=== PATIENT | female | born 1940 | race Caucasian/White ===

== ENCOUNTER → 2018-01-05 13:00 | Outpatient (CLI) | payer MEDICARE, OTHER, SELFPAY ==
--- NOTE | 2018-01-05 | DI.US.S_ITS ---
PROCEDURE: US PERIPH VENOUS LOW EXTREM LT INDICATIONS: LEFT LEG SWELLING TECHNIQUE: Real-time imaging, as well as color and pulse Doppler interrogation, were performed of the lower extremity deep veins from the inguinal ligament to the popliteal fossa. COMPARISON: [facility], PVE UNILATERAL RIGHT, 08/22/2014, 9:18. [facility], BREAST UNILATERAL LIMITED, 06/25/2014, 14:19. [facility], BREAST LEFT, 12/03/2010, 13:47. [facility], BREAST LEFT, 12/09/2008, 9:13. FINDINGS: The deep veins are normally compressible, and free of intraluminal thrombus. Color and pulse Doppler demonstrate normal phasic intraluminal flow. IMPRESSION: No sonographic evidence of deep venous thrombosis of the left lower extremity. Dictated by: Saurabh Mccoy M.D. on 01/05/2018 at 15:43 Approved by: Saurabh Mccoy M.D. on 01/05/2018 at 15:45
== END ==
PROVIDERS: PCP Family Medicine; Visit Provider Family Medicine
DX: M79.89 Other specified soft tissue disorders (principal)
CPT/HCPCS: 93971

== ENCOUNTER → 2018-05-04 12:34 | Outpatient (CLI) | payer MEDICARE, OTHER, SELFPAY ==
--- NOTE | 2018-05-04 | DI.US.S_ITS ---
PROCEDURE: US PELVIC COMPLETE INDICATIONS: FLANK PAIN PELVIS PAIN TECHNIQUE: Real-time scanning was performed of the pelvic organs, with image documentation. Additional endovaginal scanning was necessary due to incomplete visualization of the adnexal and endometrial structures by transabdominal scanning. COMPARISON: [facility], US, US RENAL COMPLETE, 05/04/2018, 12:54. [facility], , US PELVIS AND TRANSVAGINAL, 01/29/2005, 14:00. FINDINGS: Transabdominal scanning: No pathologic free abdominal or pelvic fluid. On the accompanying abdominal ultrasound, the kidneys demonstrate a normal appearance. Endovaginal scanning: Uterus: Removed. Ovaries: The right ovary measures 1.3 x 1 x 1 cm area is only seen transabdominally. The left ovary measures 1.4 x 1.2 x 1.1 cm or this is best seen transabdominally. IMPRESSION: Unremarkable ovaries. Status post hysterectomy. Dictated by: Sancho Sherman M.D. on 05/04/2018 at 13:38 Approved by: Sancho Sherman M.D. on 05/04/2018 at 13:39
--- NOTE | 2018-05-04 | DI.US.S_ITS ---
PROCEDURE: US RENAL COMPLETE INDICATIONS: FLANK PAIN PELVIS PAIN TECHNIQUE: Real-time scanning was performed of the kidneys and bladder, with image documentation. COMPARISON: [facility], CT, ABDOMEN/PELVIS WITH CONTRAST, 06/16/2017, 11:17. [facility], US, US PELVIC COMPLETE, 05/04/2018, 13:13. FINDINGS: Kidneys: Kidneys are normal in size. Right kidney measures 10.6 cm long; left kidney measures 10.1 cm long. Right renal cortical thickness is 1.4 cm; left renal cortical thickness is 1.1 cm. Renal cortical echotexture is normal. No hydronephrosis or nephrolithiasis. No suspicious solid mass lesions. Bladder: Pre-void bladder volume is 297 mL. Post-void residual is 104 mL. Pre-void images demonstrate no intraluminal masses or stones. On pre-void images, both ureteral jets are noted with color Doppler interrogation. (Of note, ureteral jets may not be detectable in up to 25% of cases due to insufficient differences in specific gravity between ureteral and bladder urine). Miscellaneous: No free pelvic fluid. IMPRESSION: Normal study, without hydronephrosis. Dictated by: Sancho Sherman M.D. on 05/04/2018 at 13:37 Approved by: Sancho Sherman M.D. on 05/04/2018 at 13:38
== END ==
PROVIDERS: PCP Family Medicine; Visit Provider Obstetrics & Gynecology
DX: R10.2 Pelvic and perineal pain (principal); Z90.710 Acquired absence of both cervix and uterus
CPT/HCPCS: 76770; 76830; 76856

== ENCOUNTER → 2018-08-23 11:19 | Outpatient (CLI) | payer MEDICARE, OTHER, SELFPAY ==
--- NOTE | 2018-08-23 | DI.MG.S_ITS ---
BILATERAL DIGITAL SCREENING MAMMOGRAM 3D/2D WITH CAD POST LUMPECTOMY: 08/23/2018 CLINICAL: Routine screening. Personal history of right breast cancer. Family history of breast cancer. Comparison is made to exams dated: 08/15/2017 mammogram, 08/02/2016 mammogram, and 01/05/2016 mammogram - [facility]. There are scattered fibroglandular elements in both breasts. Current study was also evaluated with a Computer Aided Detection (CAD) system. There are benign post operative findings in the right breast. There also are benign calcifications in both breasts. No significant masses, calcifications, or other findings are seen in either breast. There has been no significant interval change. IMPRESSION: There is no mammographic evidence of malignancy. A 1 year screening mammogram is recommended. This exam was interpreted at Station ID: [id number]. NOTE: For mammograms, a report in lay terms will be sent to the patient. Approximately 15% of breast malignancies will not be visualized mammographically. In the management of a palpable breast mass, a negative mammogram must not discourage biopsy of a clinically suspicious lesion. Electronically Signed By: Emery jaramillo/isabelle:08/23/2018 15:29:35 copy to: THALIA CORNELL letter sent: Normal Exam ACR BI-RADS Category 2: Benign Finding(s) 3342F
== END ==
PROVIDERS: PCP Family Medicine; Visit Provider Family Medicine
DX: Z12.31 Encounter for screening mammogram for malignant neoplasm of breast (principal); Z85.3 Personal history of malignant neoplasm of breast; Z80.3 Family history of malignant neoplasm of breast
CPT/HCPCS: 77063; 77067

== ENCOUNTER → 2019-11-02 14:06 | Outpatient (CLI) | payer MEDICARE, OTHER, SELFPAY ==
--- NOTE | 2019-11-02 | DI.MG.S_ITS ---
BILATERAL DIGITAL SCREENING MAMMOGRAM 3D/2D WITH CAD: 11/02/2019 Comparison is made to exams dated: 08/23/2018 mammogram, 08/15/2017 mammogram, and 08/02/2016 mammogram - [facility]. There are scattered fibroglandular elements in both breasts. Current study was also evaluated with a Computer Aided Detection (CAD) system. There is a benign area of fat necrosis in the right breast. There also are benign calcifications in both breasts. Additionally, there are benign post operative findings in the right breast. No significant masses, calcifications, or other findings are seen in either breast. There has been no significant interval change. IMPRESSION: There is no mammographic evidence of malignancy. A 1 year screening mammogram is recommended. This exam was interpreted at Station ID: [id number]. NOTE: For mammograms, a report in lay terms will be sent to the patient. Approximately 15% of breast malignancies will not be visualized mammographically. In the management of a palpable breast mass, a negative mammogram must not discourage biopsy of a clinically suspicious lesion. Electronically Signed By: Yousif jefferson/isabelle:11/02/2019 16:01:42 letter sent: Normal Exam ACR BI-RADS Category 2: Benign Finding(s) 3342F
== END ==
PROVIDERS: PCP Family Medicine; Referring Provider Family Medicine; Visit Provider Family Medicine
DX: Z12.31 Encounter for screening mammogram for malignant neoplasm of breast (principal)
CPT/HCPCS: 77063; 77067

== ENCOUNTER → 2019-12-05 13:07 | Outpatient (CLI) | payer MEDICARE, OTHER, SELFPAY | PROVIDERS: PCP Family Medicine; Referring Provider Family Medicine; Visit Provider Family Medicine | DX: M85.851 Other specified disorders of bone density and structure, right thigh (principal); Z78.0 Asymptomatic menopausal state; Z85.3 Personal history of malignant neoplasm of breast | CPT/HCPCS: 77080 ==

== ENCOUNTER → 2020-06-20 10:16 | Outpatient (CLI) | payer MEDICARE, OTHER, SELFPAY ==
[2020-06-20] MEDS: COVID-19 VACC #1, MRNA(MOD) 100 MCG/0.5 ML VIAL IM (10:22)
== END ==
PROVIDERS: PCP Family Medicine; Referring Provider Internal Medicine; Visit Provider Internal Medicine
DX: Z23 Encounter for immunization (principal)
CPT/HCPCS: 0011A; 91301

== ENCOUNTER → 2020-07-18 11:05 | Outpatient (CLI) | payer MEDICARE, OTHER, SELFPAY ==
[2020-07-18] MEDS: COVID-19 VACC #2, MRNA(MOD) 100 MCG/0.5 ML VIAL IM (11:09)
== END ==
PROVIDERS: PCP Family Medicine; Visit Provider Internal Medicine
DX: Z23 Encounter for immunization (principal)
CPT/HCPCS: 0012A; 91301

== ENCOUNTER 2020-07-24 10:48 | Emergency (ER) | payer MEDICARE, OTHER, SELFPAY ==
[2020-07-24] VITALS (21 sets, daily range): BP systolic 133–172; BP diastolic 63–90; PULSE 79–128; RESP 14–24; TEMP 36.7; O2SAT 95–99; BMI 28.3
--- NOTE | 2020-07-24 10:58 | ED.ARRPALP ---
HPI - Arrhythmia/Palpitations <MATTHIAS Gilbert - Last Filed: 07/24/20 15:20> General Chief Complaint: Arrhythmia/Palpitations Stated Complaint: rapid heart beat Time Seen by Provider: 07/24/20 10:48 Source: patient Mode of arrival: Ambulatory Limitations: no limitations History of Present Illness HPI narrative: 79yo female with a history of GERD and HLD, presents to the ED for concerns of a rapid heart rate. She states yesterday she felt like her heart was beating fast, this resolved prior to the time she went to bed. This morning she woke up and had the same feeling. Patient states she has a Fitbit and noticed that the heart rate has been over 100. She had an episode similar to this approximately 1 week ago which resolved on its own. Patient states she has shortness of breath with these episodes but denies other symptoms of these episodes such as diaphoresis, vomiting, chest pain, or dizziness. She denies any diagnosis of a cardiac arrhythmia, denies taking any medications for high blood pressure or cardiac arrhythmias. Patient states she takes omeprazole and simvastatin only. She denies any fevers, chills, nausea, vomiting, diarrhea, chest pain, shortness of breath, dizziness, cough, or any other concerns at this time. She states she does not feel her rapid heartbeat at this very moment, (HR on monitor of 126). Related Data Home Medications Medication Instructions Recorded Confirmed ASPIRIN (Aspirin) Q DAY #0 12/19/12 cyclosporine [Restasis] 1 drp OPHTH Q DAY #0 01/16/16 fluticasone propionate [Flonase 1 spray INTRANASAL QDAY #1 bot 01/16/16 Allergy Relief] Previous Rx's Medication Instructions Recorded metoprolol succinate 25 mg PO DAILY 30 Days #30 tab 07/24/20 Allergies Allergy/AdvReac Type Severity Reaction Status Date / Time No Known Drug Allergies Allergy Verified 07/24/20 10:54 Review of Systems <MATTHIAS Gilbert - Last Filed: 07/24/20 15:20> Review of Systems Narrative: REVIEW OF SYSTEMS: GENERAL: Denies fever or chills. HENT: No head trauma. CARDIOVASCULAR: No chest pain or syncope. RESPIRATORY: No shortness of breath or cough. Does report some shortness of breath with episodes. GASTROINTESTINAL: No nausea, vomiting, diarrhea, or constipation. MUSCULOSKELETAL: No pain. INTEGUMENTARY: No rash. NEURO: No numbness or tingling. Patient History <MATTHIAS Gilbert - Last Filed: 07/24/20 15:20> Medical History (Updated 07/24/20 @ 14:29 by MATTHIAS Gilbert) HLD (hyperlipidemia) Social History Smoking Status: Unknown if ever smoked Smoking Status: Unknown if ever smoked alcohol intake frequency: holidays/special occasions only Substance Use Type: does not use Exam <MATTHIAS Gilbert - Last Filed: 07/24/20 15:20> Initial Vital Signs Initial Vital Signs: Vital Signs Temperature 98.1 F 07/24/20 10:50 Pulse Rate 126 H 07/24/20 10:50 Respiratory Rate 19 07/24/20 10:50 Blood Pressure 166/82 H 07/24/20 10:50 Pulse Oximetry 98 07/24/20 10:50 PHYSICAL EXAMINATION: GENERAL: Awake and alert. HENT: Normocephalic, atraumatic. Ear canals patent. Oral mucosa is pink and moist. CARDIOVASCULAR: S1 and S2 sounds normal. Increased rate with regular rhythm, no murmurs, clicks, or bruits. No pedal edema. RESPIRATORY: Normal respiratory rate, trachea midline, airway patent. No stridor, nasal flaring or accessory muscle use. Lungs are clear in all frank without wheeze, rhonchi, or crackles. MUSCULOSKELETAL: Normal gait and coordination. Equal tone and mass bilaterally. EXTREMITIES: CMS intact. Moves all extremities. SKIN: Warm, dry, soft, appropriate color for ethnicity. No lesions, rashes, or wounds. NEURO: Alert and Oriented X 3. Good coordination. No ataxia, or sensory deficits, or cognitive issues. PSYCH: Appropriate affect and mood. <Clay Troy DO - Last Filed: 07/24/20 16:03> Initial Vital Signs Initial Vital Signs: Vital Signs Temperature 98.1 F 07/24/20 10:50 Pulse Rate 126 H 07/24/20 10:50 Respiratory Rate 19 07/24/20 10:50 Blood Pressure 166/82 H 07/24/20 10:50 Pulse Oximetry 98 07/24/20 10:50 Course <MATTHIAS Gilbert - Last Filed: 07/24/20 15:20> Course Course Narrative: 1335: I spoke with patient's PCP, Dr. Price discussed patient's symptoms, tests, and test results. He suggested starting patient on metoprolol XR 25mg once daily. Orders Ordered: ED Orders 07/24/20 10:55 EKG-12 Lead Stat 07/24/20 11:02 XR chest 1V Stat 07/24/20 11:03 EKG-12 Lead Routine 07/24/20 11:33 Complete Blood Count AUTO DIFF Stat Comprehensive Metabolic Panel Stat Lipase Stat Troponin & CK Cardiac Panel Stat 07/24/20 11:38 EKG-12 Lead Stat 07/24/20 13:34 Troponin I Stat Discontinued Medications Sodium Chloride (Normal Saline 0.9%) 1,000 mls @ 1,000 mls/hr IV BOLUS ONE Stop: 07/24/20 12:01 Last Infusion: 07/24/20 12:51 Dose: 0 mls/hr Documented by: Admin: 07/24/20 11:33 Dose: 1,000 mls/hr Documented by: MARILYN Metoprolol Tartrate (Metoprolol Tartrate 5 Mg/5 Ml Inj) 5 mg IV NOW ONE Stop: 07/24/20 11:03 Last Admin: 07/24/20 12:07 Dose: 5 mg Documented by: MARILYN Vital Signs Vital signs: Vital Signs - 8 hr 07/24/20 10:50 07/24/20 10:53 07/24/20 11:00 Temperature 98.1 F Pulse Rate 126 H 128 H 116 H Respiratory Rate 19 24 Blood Pressure 166/82 H Pulse Oximetry 98 99 98 07/24/20 11:05 07/24/20 11:20 07/24/20 11:30 Temperature Pulse Rate 118 H 102 H 100 H Respiratory Rate 16 17 19 Blood Pressure 169/73 H 156/70 H Pulse Oximetry 99 99 98 07/24/20 11:37 07/24/20 11:40 07/24/20 11:50 Temperature Pulse Rate 100 H 102 H 104 H Respiratory Rate 19 16 16 Blood Pressure 172/80 H 168/79 H 169/79 H Pulse Oximetry 99 97 96 07/24/20 12:00 07/24/20 12:10 07/24/20 12:12 Temperature Pulse Rate 96 H 97 H 82 Respiratory Rate 17 17 19 Blood Pressure 159/69 H 164/72 H 154/69 H Pulse Oximetry 99 98 99 07/24/20 12:20 07/24/20 12:30 07/24/20 12:47 Temperature Pulse Rate 79 84 83 Respiratory Rate 14 14 22 Blood Pressure 156/72 H 161/72 H Pulse Oximetry 97 98 98 07/24/20 12:50 07/24/20 13:00 07/24/20 13:10 Temperature Pulse Rate 83 80 81 Respiratory Rate 20 16 16 Blood Pressure 159/90 H 148/78 H 155/78 H Pulse Oximetry 97 98 96 07/24/20 13:20 07/24/20 13:30 07/24/20 14:44 Temperature Pulse Rate 82 86 87 Respiratory Rate 15 17 14 Blood Pressure 164/78 H 164/87 H 133/63 Pulse Oximetry 97 97 95 <Clay Troy DO - Last Filed: 07/24/20 16:03> Orders Ordered: ED Orders 07/24/20 10:55 EKG-12 Lead Stat 07/24/20 11:02 XR chest 1V Stat 07/24/20 11:03 EKG-12 Lead Routine 07/24/20 11:33 Complete Blood Count AUTO DIFF Stat Comprehensive Metabolic Panel Stat Lipase Stat Troponin & CK Cardiac Panel Stat 07/24/20 11:38 EKG-12 Lead Stat 07/24/20 13:34 Troponin I Stat Discontinued Medications Sodium Chloride (Normal Saline 0.9%) 1,000 mls @ 1,000 mls/hr IV BOLUS ONE Stop: 07/24/20 12:01 Last Infusion: 07/24/20 12:51 Dose: 0 mls/hr Documented by: Admin: 07/24/20 11:33 Dose: 1,000 mls/hr Documented by: MARILYN Metoprolol Tartrate (Metoprolol Tartrate 5 Mg/5 Ml Inj) 5 mg IV NOW ONE Stop: 07/24/20 11:03 Last Admin: 07/24/20 12:07 Dose: 5 mg Documented by: MARILYN Vital Signs Vital signs: Vital Signs - 8 hr 07/24/20 10:50 07/24/20 10:53 07/24/20 11:00 Temperature 98.1 F Pulse Rate 126 H 128 H 116 H Respiratory Rate 19 24 Blood Pressure 166/82 H Pulse Oximetry 98 99 98 07/24/20 11:05 07/24/20 11:20 07/24/20 11:30 Temperature Pulse Rate 118 H 102 H 100 H Respiratory Rate 16 17 19 Blood Pressure 169/73 H 156/70 H Pulse Oximetry 99 99 98 07/24/20 11:37 07/24/20 11:40 07/24/20 11:50 Temperature Pulse Rate 100 H 102 H 104 H Respiratory Rate 19 16 16 Blood Pressure 172/80 H 168/79 H 169/79 H Pulse Oximetry 99 97 96 07/24/20 12:00 07/24/20 12:10 07/24/20 12:12 Temperature Pulse Rate 96 H 97 H 82 Respiratory Rate 17 17 19 Blood Pressure 159/69 H 164/72 H 154/69 H Pulse Oximetry 99 98 99 07/24/20 12:20 07/24/20 12:30 07/24/20 12:47 Temperature Pulse Rate 79 84 83 Respiratory Rate 14 14 22 Blood Pressure 156/72 H 161/72 H Pulse Oximetry 97 98 98 07/24/20 12:50 07/24/20 13:00 07/24/20 13:10 Temperature Pulse Rate 83 80 81 Respiratory Rate 20 16 16 Blood Pressure 159/90 H 148/78 H 155/78 H Pulse Oximetry 97 98 96 07/24/20 13:20 07/24/20 13:30 07/24/20 14:44 Temperature Pulse Rate 82 86 87 Respiratory Rate 15 17 14 Blood Pressure 164/78 H 164/87 H 133/63 Pulse Oximetry 97 97 95 MDM - Arrhythmia/Palpitations <MATTHIAS Gilbert - Last Filed: 07/24/20 15:20> Medical Records Attestation: I reviewed the patient's medical records. Lab Data Attestation: I reviewed the patient's lab results. Result diagrams: 07/24/20 11:33 07/24/20 11:33 Labs: Lab Results 07/24/20 07/24/20 07/24/20 Range/Units 11:33 11:33 13:34 WBC 6.1 (4.5-11.0) X10^3/uL RBC 4.57 (4.0-5.2) X10^6/uL Hgb 13.8 (12.0-16.0) g/dL Hct 41.9 (36-46) % MCV 91.6 (80-100) fL MCH 30.3 (26-34) PG MCHC 33.0 (30-36) % RDW 13.1 (11.6-14.8) % Plt Count 233 (150-400) X10^3/uL Neut % (Auto) 73.1 (50-75) % Lymph % (Auto) 20.1 L (25-40) % [place] % (Auto) 5.9 (3-14) % Eos % (Auto) 0.3 L (2-4) % Baso % (Auto) 0.6 (0-2) % Neut # (Auto) 4500 (6566-6783) /uL Lymph # (Auto) 1200 (9672-0272) /uL [place] # (Auto) 400 (0-900) /uL Eos # (Auto) 0 (0-450) /uL Baso # (Auto) 0 (0-100) /uL Sodium 137 (137-145) mmol/L Potassium 3.9 (3.4-5.1) mmol/L Chloride 103 (98-107) mmol/L Carbon Dioxide 29 (22-32) mmol/L BUN 18 H (7-17) mg/dL Creatinine 0.58 (0.52-1.04) mg/dL Estimated GFR > 60.0 (>60) mL/min BUN/Creatinine Ratio 31.0 H (6-22) Glucose 178 H (80-110) mg/dL Calcium 8.9 (8.4-10.2) mg/dL Total Bilirubin 0.4 (0.2-1.3) mg/dL AST 61 H (14-36) IU/L ALT 74 H (<35) IU/L Alkaline Phosphatase 111 (38-126) U/L Total Creatine Kinase 32 (30-135) U/L CK-MB (CK-2) TNP CK-MB (CK-2) Rel Index TNP Troponin I < 0.012 < 0.012 (0.01-0.034) ng/mL Total Protein 7.4 (6.3-8.2) g/dL Albumin 4.0 (3.5-5.0) g/dL Globulin 3.4 (1.7-4.1) g/dL Albumin/Globulin Ratio 1.2 (1.0-2.8) Lipase 107 (23-300) U/L Imaging Data Chest x-ray: Radiologist's Impresson: [facility] [place] [id number] ReportSigned Patient: Deborah Sands DMR#: [id number]: [id number]:[id number]/Sex: 79 / FDate of Service: 07/24/20Loc: EDAccession Number: [id number] Procedure: XR chest 1V Ordering Provider: Leisa Robles PROCEDURE: XR CHEST 1V INDICATIONS: chest pain TECHNIQUE: One view of the chest was acquired. COMPARISON: [facility], , CHEST 2 VIEW, 07/30/2015, 11:27. FINDINGS: Surgical changes and devices: Right axillary clips are present. Lungs and pleura: Minimal increased pulmonary vascularity. No pleural effusions or pneumothorax. Mediastinum: Mediastinal contours appear normal. Heart size is mildly prominent. Bones and chest wall: No suspicious bony lesions. Overlying soft tissues appear unremarkable. IMPRESSION: Minimal increased vascularity. No consolidations. Dictated by: Uma Schmitz M.D. on 07/24/2020 at 10:46 Approved by: Uma Schmitz M.D. on 07/24/2020 at 10:47 ECG Data Interpretation: 1055: Sinus tachycardia, rate 118, AR interval 160, QTC 372. No ST elevation. Some nonspecific ST depression noted in V2 through V5, difficult to tell due to rate. No ectopy. No obvious T-wave inversion. EKG also viewed by Dr. Troy 1103: Attempted to repeat EKG when heart rate was 140. However, in sinus rhythm, rate 116, AR interval 177, QTC 374. No ST elevation. Diffuse ST depression noted in V2 through V5. EKG viewed by Dr. Troy per protocol. 1139: Sinus rhythm, rate 99, AR interval 169, QTC 391. No ST elevation. Diffuse ST depression has significantly decreased from prior EKG, I suspect that this is most likely attributed to due to fast rhythm at this point. No ectopy. EKG also viewed by Dr. Troy per protocol. 1342: Sinus rhythm with occasional PAC noted. Rate 82, AR interval 134, QTC 398. No ST elevation or ST depression. EKG also viewed by Dr. Troy per protocol. MDM Narrative Medical decision making narrative: 79-year-old female with a history of HLD and GERD, presents emergency department for bouts of feeling like she has had a ?rapid heart rate ?. Initially patient's heart rate was 126 with a run up to 146, serial EKGs appeared to be sinus tachycardia. After administration of fluids, patient's heart rate decreased to 102, EKG at this point also showed sinus rhythm. Given patient's symptoms, laboratory work was ordered. Less concern for acute ACS as diffuse ST depressions resolved once heart rate decreased, but this the diffuse depressions were most likely a results of increased heart rate. Patient was given 5 mg of IV metoprolol, heart rate further decreased to 7 days. Last EKG at 70bpm showed occasional PACs. Patient had serial negative troponins, laboratory work non-remarkable, however I spoke with patient that it did show and elevated blood sugar of 178, and very slightly elevated liver enzymes.. She was encouraged to follow up with PCP about this. Patient did not have chest pain at all prior to presenting to the emergency department and while in the ED. After heart rate has decreased, shortness of breath resolved. I spoke with patient's PCP, Dr. Price, who suggested patient start metoprolol 25 ER daily. Discussed with patient that she should change positions slowly while taking this medication as it can cause dizziness. She was encouraged to follow up with PCP PRETTY. Less concern for acute infection causing tachycardia given normal white blood cell count and lack of other infectious or chills. No abdominal pain, no lesions, no fever, no cough Less concern for PE given lack of hypoxia, patient did have slight shortness of breath that resolved with heart rate returning to normal. Patient's heart rate returned normal after fluids and metoprolol. Return precautions discussed in detail for any new or worsening symptoms., patient agreed to plan of care verbalized understanding. <Clay Troy, DO - Last Filed: 07/24/20 16:03> Lab Data Labs: Lab Results 07/24/20 07/24/20 07/24/20 Range/Units 11:33 11:33 13:34 WBC 6.1 (4.5-11.0) X10^3/uL RBC 4.57 (4.0-5.2) X10^6/uL Hgb 13.8 (12.0-16.0) g/dL Hct 41.9 (36-46) % MCV 91.6 (80-100) fL MCH 30.3 (26-34) PG MCHC 33.0 (30-36) % RDW 13.1 (11.6-14.8) % Plt Count 233 (150-400) X10^3/uL Neut % (Auto) 73.1 (50-75) % Lymph % (Auto) 20.1 L (25-40) % [place] % (Auto) 5.9 (3-14) % Eos % (Auto) 0.3 L (2-4) % Baso % (Auto) 0.6 (0-2) % Neut # (Auto) 4500 (0702-8556) /uL Lymph # (Auto) 1200 (5485-3396) /uL [place] # (Auto) 400 (0-900) /uL Eos # (Auto) 0 (0-450) /uL Baso # (Auto) 0 (0-100) /uL Sodium 137 (137-145) mmol/L Potassium 3.9 (3.4-5.1) mmol/L Chloride 103 (98-107) mmol/L Carbon Dioxide 29 (22-32) mmol/L BUN 18 H (7-17) mg/dL Creatinine 0.58 (0.52-1.04) mg/dL Estimated GFR > 60.0 (>60) mL/min BUN/Creatinine Ratio 31.0 H (6-22) Glucose 178 H (80-110) mg/dL Calcium 8.9 (8.4-10.2) mg/dL Total Bilirubin 0.4 (0.2-1.3) mg/dL AST 61 H (14-36) IU/L ALT 74 H (<35) IU/L Alkaline Phosphatase 111 (38-126) U/L Total Creatine Kinase 32 (30-135) U/L CK-MB (CK-2) TNP CK-MB (CK-2) Rel Index TNP Troponin I < 0.012 < 0.012 (0.01-0.034) ng/mL Total Protein 7.4 (6.3-8.2) g/dL Albumin 4.0 (3.5-5.0) g/dL Globulin 3.4 (1.7-4.1) g/dL Albumin/Globulin Ratio 1.2 (1.0-2.8) Lipase 107 (23-300) U/L Discharge Plan Departure Patient Disposition: Home Clinical Impression: Palpitations, Sinus tachycardia, PAC (premature atrial contraction) Activity Restrictions/Additional Instructions: Thank you for entrusting me with your care today. As discussed, your EKGs show that your heart rate was initially fast, your heart rate slowed with metoprolol and fluids. Your cardiac laboratory work, chest x-ray, and EKGs were non-remarkable other than a fast heart rate and an occasional extra be called a PAC. Your laboratory work did show a glucose of 178 which is slightly high, and slightly elevated liver enzymes. This could be incidental however, I do recommend mentioning this to your primary care provider when you follow-up. I spoke with Dr. Price, he recommended starting you on metoprolol daily. Your prescription was sent to [facility] [place]. Please call his office today or tomorrow to make a follow-up appointment as soon as possible. Return emergency department for any new or worsening symptoms especially shortness of breath, chest pain, worsening palpitation, or any other concerns. Prescriptions: New metoprolol succinate 25 mg tablet extended release 24 hr 25 mg PO DAILY 30 Days Qty: 30 RF: 0 No Action ASPIRIN (Aspirin) Q DAY Qty: 0 RF: 0 fluticasone propionate [Flonase Allergy Relief] 9.9 ML spray,suspension 1 spray Intranasal QDAY Qty: 1 RF: 0 cyclosporine [Restasis] 1 EACH dropperette 1 drp OPHTH Q DAY Qty: 0 RF: 0 Referrals: Mitch Price MD [Primary Care Provider] - <Clay Troy DO - Last Filed: 07/24/20 16:03> Cosign ED Attending Cosignature Attestation: Dr Troy Co-Sign Statement: I was available for consultation during this patient's emergency department visit. This chart is signed by myself for administrative purposes only. I did not have direct contact with this patient during this visit. They were seen independently by the APC.
--- NOTE | 2020-07-24 11:02 | DI.RAD.S_ITS ---
PROCEDURE: XR CHEST 1V INDICATIONS: chest pain TECHNIQUE: One view of the chest was acquired. COMPARISON: [facility], , CHEST 2 VIEW, 07/30/2015, 11:27. FINDINGS: Surgical changes and devices: Right axillary clips are present. Lungs and pleura: Minimal increased pulmonary vascularity. No pleural effusions or pneumothorax. Mediastinum: Mediastinal contours appear normal. Heart size is mildly prominent. Bones and chest wall: No suspicious bony lesions. Overlying soft tissues appear unremarkable. IMPRESSION: Minimal increased vascularity. No consolidations. Dictated by: Uma Schmitz M.D. on 07/24/2020 at 10:46 Approved by: Uma Schmitz M.D. on 07/24/2020 at 10:47
--- NOTE | 2020-07-24 11:23 | PC.NURSE ---
patient stated that she began having symptoms the day before the snow came or last Tuesday. She states that she frequently becomes tired and short of breathe on exertion. She denies feeling lightheaded, nauseated , or dizzy, chest pain/ pressure. She has no history of heart disease, afib, or PR. Her states that her fitbit often reads a resting HR of 70s.
[2020-07-24] MEDS: SODIUM CHLORIDE 0.9% 1,000 ML 1000 ML IV (11:33)
[2020-07-24 11:44] LABS: Add Manual Diff / Slide Review NO; Basophils Absolute Auto 0 /uL (0-100); Basophils Percent Auto 0.6 % (0-2); Eosinophils Absolute Auto 0 /uL (0-450); Eosinophils Percent Auto 0.3 % (2-4); Hematocrit 41.9 % (36-46); Hemoglobin 13.8 g/dL (12.0-16.0); Lymphocytes Absolute Auto 1200 /uL (1100-4500); Lymphocytes Percent Auto 20.1 % (25-40); Mean Corpuscular Hemoglobin 30.3 PG (26-34); Mean Corpuscular Volume 91.6 fL (80-100); Monocytes Absolute Auto 400 /uL (0-900); Monocytes Percent Auto 5.9 % (3-14); Neutrophils Absolute Auto 4500 /uL (1500-7000); Neutrophils Percent Auto 73.1 % (50-75); Platelet Count 233 X10^3/uL (150-400); Red Blood Cell Count 4.57 X10^6/uL (4.0-5.2); Red Cell Distribution Width 13.1 % (11.6-14.8); White Blood Cell Count 6.1 X10^3/uL (4.5-11.0)
[2020-07-24 11:53] LABS: Alanine Aminotransferase 74 IU/L (<35); Albumin Globulin Ratio 1.2 (1.0-2.8); Alkaline Phosphatase 111 U/L (38-126); Aspartate Aminotransferase 61 IU/L (14-36); Bilirubin Total 0.4 mg/dL (0.2-1.3); Blood Urea Nitrogen 18 mg/dL (7-17); Calcium 8.9 mg/dL (8.4-10.2); Carbon Dioxide 29 mmol/L (22-32); Chloride 103 mmol/L (98-107); Creatine Kinase 32 U/L (30-135); Estimated Glomerular Filt Rate > 60.0 mL/min (>60); Globulin 3.4 g/dL (1.7-4.1); Glucose 178 mg/dL (80-110); HEMOLYSIS 33 (0-50); Lipase 107 U/L (23-300); Potassium 3.9 mmol/L (3.4-5.1); Sodium 137 mmol/L (137-145); Total Protein 7.4 g/dL (6.3-8.2)
[2020-07-24 12:05] LABS: Troponin I < 0.012 ng/mL (0.01-0.034)
[2020-07-24] MEDS: METOPROLOL TARTRATE 5 MG/5 ML INJ IV (12:07)
[2020-07-24 14:08] LABS: Troponin I < 0.012 ng/mL (0.01-0.034)
== END 2020-07-24 14:46 | disposition home or self-care (01) ==
PROVIDERS: Emergency Provider Nurse Practitioner; PCP Family Medicine
DX: I49.1 Atrial premature depolarization (principal); R00.2 Palpitations; R00.0 Tachycardia, unspecified; R06.02 Shortness of breath; Z79.82 Long term (current) use of aspirin; R07.9 Chest pain, unspecified; E78.5 Hyperlipidemia, unspecified; K21.9 Gastro-esophageal reflux disease without esophagitis
CPT/HCPCS: 36415; 71045; 80053; 82550; 83690; 84484; 85025; 93005; 96361; 96374; 99283; 99284

== ENCOUNTER → 2020-08-01 11:09 | Outpatient (CLI) | payer MEDICARE, OTHER, SELFPAY ==
--- NOTE | 2020-08-01 | DI.RAD.S_ITS ---
PROCEDURE: XR HIP W PEL IF DONE RT 2V INDICATIONS: RIGHT HIP PAIN TECHNIQUE: AP pelvis with lateral view(s) of the right hip(s). COMPARISON: None. FINDINGS: Bones: No fractures or dislocations. Pelvic ring appears intact. No suspicious bony lesions. Soft tissues: The visualized bowel gas pattern is normal. No suspicious soft tissue calcifications. IMPRESSION: No moderately severe or severe degenerative change is found, or evidence of recent trauma. 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 A definite source of asymmetric right-sided pain is not identified. Dictated by: Kalyan Chew M.D. on 08/01/2020 at 12:54 Approved by: Kalyan Chew M.D. on 08/01/2020 at 12:55
== END ==
PROVIDERS: PCP Family Medicine; Referring Provider Family Medicine; Visit Provider Family Medicine
DX: M25.551 Pain in right hip (principal); M51.17 Intervertebral disc disorders with radiculopathy, lumbosacral region
CPT/HCPCS: 73502

== ENCOUNTER → 2020-09-01 11:49 | Outpatient (CLI) | payer MEDICARE, OTHER, SELFPAY ==
--- NOTE | 2020-09-01 11:52 | DI.RAD.S_ITS ---
PROCEDURE: XR KNEE LT 3V INDICATIONS: right knee pain TECHNIQUE: 3 views of the knee were acquired. COMPARISON: None. FINDINGS: Bones: No fractures or dislocations. Mild tricompartmental osteoarthritis is seen. No suspicious bony lesions. Soft tissues: No joint effusion. No suspicious soft tissue calcifications. IMPRESSION: Mild tricompartmental osteoarthritis. No acute left knee fracture or dislocation. No joint effusion. Dictated by: Ayden Shaw M.D. on 09/01/2020 at 13:35 Approved by: Ayden Shaw M.D. on 09/01/2020 at 13:35
== END ==
PROVIDERS: PCP Family Medicine; Referring Provider Family Medicine; Visit Provider Family Medicine
DX: M25.561 Pain in right knee (principal); M17.12 Unilateral primary osteoarthritis, left knee
CPT/HCPCS: 73562

== ENCOUNTER → 2020-10-28 09:06 | Outpatient (CLI) | payer MEDICARE, OTHER, SELFPAY ==
--- NOTE | 2020-10-28 09:09 | DI.ECHO.S_ITS ---
[facility]+ [facility] +---------+ : : [address] : [place] [address] : : : : [id number] : : : : Phone: [phone] Echocardiogram Report + + :Name: FAUSTO BUCIO Study Date: 10/28/2020 Height: 66 in : :[facility] ReadingLocation: Weight: 175 lb : : Gender: Female BSA: 1.9 m2 : :: 1940 Age: 79 yrs BP: 146/91 mmHg: :Reason For Study: DYSPNEA : :Ordering Physician: DIEGO SCHMIDT Performed By: Jazzmine Henderson : :Referring: JUAN ACUÑA : + + Interpretation Summary Normal sinus rhythm. Normal LV size, wall thickness, wall motion and LV systolic function. EF is 60-65%. Normal chamber sizes. Mild MAC; otherwise there are no valvular abnormalities. No prior study available for comparison. Procedure: A two-dimensional transthoracic echocardiogram with color flow and Doppler was performed. The study quality was technically adequate. Comparison is made with the echocardiogram of 10/15/2013. The patient was in sinus rhythm with heart rates between 72-91 bpm during the exam. Left Ventricle: The left ventricle is normal in size. There is normal left ventricular wall thickness. The ejection fraction is estimated to be 60-65%. Diastolic parameters suggest probable normal left ventricular diastolic function and normal filling pressures. Right Ventricle: The right ventricle is normal in size and function. Atria: The left atrial size is normal. Right atrial size is normal. There is no Doppler evidence for an interatrial shunt. Mitral Valve: There is mild mitral annular calcification. The mitral valve leaflets appear mildly thickened, but open well. There is trace mitral regurgitation. Aortic Valve: The aortic valve is trileaflet. The aortic valve opens well. There is no aortic valve stenosis. No aortic regurgitation is present. Tricuspid Valve: The tricuspid valve is normal in structure and function. There is trace tricuspid regurgitation. Pulmonary artery pressures cannot be estimated because of the lack of a measurable TR jet velocity but the IVC suggests a CVP of around 3 mmHg. Pulmonic Valve: The pulmonic valve is not well visualized. There is no pulmonic valvular regurgitation. Great Vessels: The aortic root is normal size. The dimensions of the ascending aorta are normal. The IVC is of normal diameter and collapses greater than 50% with a sniff. This suggests a low right atrial pressure of 3 mm Hg. Pericardium/ Pleura There is no pericardial effusion. There is no pleural effusion. MMode/2D Measurements & Calculations LVIDd: 3.9 cm LVOT diam: 2.0 cm LVIDs: 2.5 cm Ao root diam: 3.3 cm FS: 34.7 % asc Aorta Diam: 3.3 cm EPSS: 0.30 cm Ao Arch Diam (Prox Trans): 2.7 cm IVSd: 0.66 cm LVPWd: 0.66 cm LV lu. diameter/BSA (cm/m^2): 2.0 LV sys. diameter/BSA (cm/m^2): 1.3 LA A2 area: 21.2 cm2 RA long axis: 5.6 cm LA A4 area: 17.2 cm2 RA area: 15.0 cm2 LA length (vol): 5.0 cm RA vol: 34.0 ml LA vol: 61.6 ml RA : 18.0 ml/m2 LA vol index: 32.6 ml/m2 IVC diam: 1.5 cm RVD1 (basal): 2.2 cm TAPSE: 2.2 cm Doppler Measurements & Calculations Ao V2 max: 137.4 cm/sec LVOT Max Antolin: 104.2 cm/sec Ao V2 mean: 89.6 cm/sec LV V1 max P.3 mmHg Ao max P.6 mmHg LV V1 VTI: 23.2 cm Ao mean P.8 mmHg RONALD(I,D): 2.6 cm2 Ao V2 VTI: 29.0 cm RONALD(V,D): 2.5 cm2 sev ratio: 0.80 RONALD indexed to BSA (cm^2/m^2): 1.4 MV E max antolin: 101.1 cm/sec PA pr(Accel): 29.3 mmHg MV A max antolin: 84.5 cm/sec MV E/A: 1.2 Med Peak E' Antolin: 8.6 cm/sec E/E' med: 11.8 Lat Peak E' Antolin: 11.4 cm/sec E/E' lat: 8.9 E/e' average: 10.3 MV dec time: 0.23 sec SV([facility]): 75.1 ml Electronically signed by: Ludmila Do M.D. on Reading Physician:10/29/2020 12:36 AM
== END ==
PROVIDERS: PCP Family Medicine; Referring Provider Internal Medicine Pulmonary Disease; Visit Provider Internal Medicine Pulmonary Disease
DX: R06.00 Dyspnea, unspecified (principal)
CPT/HCPCS: 93306

== ENCOUNTER → 2020-11-03 16:14 | Outpatient (CLI) | payer MEDICARE, OTHER, SELFPAY ==
--- NOTE | 2020-11-03 | DI.MG.S_ITS ---
BILATERAL DIGITAL SCREENING MAMMOGRAM 3D/2D WITH CAD: 11/03/2020 CLINICAL: Routine screening. Family history of breast cancer. Breast Cancer. Comparison is made to exams dated: 11/02/2019 mammogram, 08/23/2018 mammogram, and 08/15/2017 mammogram - [facility]. There are scattered fibroglandular elements in both breasts. Current study was also evaluated with a Computer Aided Detection (CAD) system. There is a benign area of fat necrosis in the right breast. There also are calcifications in both breasts. There has been no significant interval change. Additionally, there are benign post operative findings in the right breast. No significant masses, calcifications, or other findings are seen in either breast. IMPRESSION: BENIGN There is no mammographic evidence of malignancy. A 1 year screening mammogram is recommended. This exam was interpreted at Station ID: [id number]. NOTE: For mammograms, a report in lay terms will be sent to the patient. Approximately 15% of breast malignancies will not be visualized mammographically. In the management of a palpable breast mass, a negative mammogram must not discourage biopsy of a clinically suspicious lesion. Electronically Signed By: Emery Chairez M.D. aty/:11/03/2020 16:56:36 letter sent: Normal Exam ACR BI-RADS Category 2: Benign Finding(s) 3342F
== END ==
PROVIDERS: PCP Family Medicine; Referring Provider Family Medicine; Visit Provider Family Medicine
DX: Z12.31 Encounter for screening mammogram for malignant neoplasm of breast (principal)
CPT/HCPCS: 77063; 77067

== ENCOUNTER → 2020-11-08 10:03 | Outpatient (CLI) | payer MEDICARE, OTHER, SELFPAY ==
[2020-11-08 11:30] LABS: COVID19 -Nasal RAPID Negative (Negative)
== END ==
PROVIDERS: PCP Family Medicine; Visit Provider Physician Assistant
DX: Z01.812 Encounter for preprocedural laboratory examination (principal); Z20.822 Contact with and (suspected) exposure to COVID-19
CPT/HCPCS: 87635; C9803

== ENCOUNTER → 2020-11-11 10:09 | Outpatient (CLI) | payer MEDICARE, OTHER, SELFPAY ==
--- NOTE | 2020-11-11 | DI.NM.S_ITS ---
PROCEDURE: NM DEREK PERF SPECT REST & STR Rest and exercise myocardial perfusion SPECT with gated imaging and ejection fraction RADIOPHARMACEUTICAL: 11.3 mCi Tc-99m sestamibi IV at rest and 25.7 mCi Tc-99m sestamibi IV at peak exercise. A one day-protocol was performed. INDICATIONS: Dyspnea, unspecified TECHNIQUE: Radiopharmaceutical was injected at peak stress test, and also at rest. SPECT images were obtained. SPECT myocardial perfusion images were displayed in short axis, horizontal long axis, and vertical long axis views. Gated images were reviewed using [employer] software. COMPARISON: None. CARDIAC STRESS: A standard Paul treadmill exercise tolerance test was performed by the patient under the supervision of an attending staff. The patient exercised for 4 minutes and 1 seconds; functional aerobic impairment (CRISTINA) is +18%. Hemodynamic data: There is normal blood pressure and heart rate response to exercise stress. Patient achieved 129% of maximum predicted heart rate at peak exercise. Symptoms: Patient denied chest pain during exercise. EKG: No diagnostic EKG changes of ischemia. Occasional PACs and occasional PVCs present during stress and recovery. FINDINGS: Raw data: There is good myocardial labeling by radiotracer. No significant motion artifacts. Zwqh-fs-vfrvp ratio is 0.32 (normal is less than 0.38 for sestamibi tracer, and less than 0.50 for thallium tracer). Left ventricle function: Gated images demonstrate normal left ventricle wall thickening. No segmental wall motion abnormality. No transient ischemic dilation; TID is 0.85 (normal less than 1.3). The left ventricle resting end-diastolic volume is 72 mL. Left ventricle stress ejection fraction is 76%; normal values are above 45%. Myocardial perfusion: There is normal distribution of activity in the left and right ventricular myocardium. No fixed or reversible perfusion defects. IMPRESSION: Low risk, normal treadmill nuclear stress test. 1) No perfusion evidence of ischemia or infarction. 2) Normal left ventricular size, wall motion, and systolic function (EF post stress 76%). 3) No ECG evidence of ischemia. Exaggerated heart rate response, probably due to holding of metoprolol). 4) Occasional PACs and occasional PVCs present. 5) Reduced exercise tolerance (7.0 METs CRISTINA +18%). Target heart rate achieved. Appropritae BP response to exercise. 6) Compared to the nuclear stress test done , no significant change. Dictated by: Tariq Gonzalez MD on 11/11/2020 at 16:26 Approved by: Tariq Gonzalez MD on 11/11/2020 at 16:33
== END ==
PROVIDERS: PCP Family Medicine; Referring Provider Internal Medicine Pulmonary Disease; Visit Provider Internal Medicine Pulmonary Disease
DX: R06.00 Dyspnea, unspecified (principal)
CPT/HCPCS: 78452; 93017; A9502

== ENCOUNTER → 2020-12-17 14:37 | Outpatient (CLI) | payer MEDICARE, OTHER, SELFPAY ==
--- NOTE | 2020-12-17 14:40 | DI.CT.S_ITS ---
PROCEDURE: CT SINUS SCREEN WO CON INDICATIONS: Allergic rhinitis, unspecified TECHNIQUE: Noncontrast 3.0 mm axial images acquired from the frontal sinuses to the mid-sella, with coronal and sagittal reformats. For radiation dose reduction, the following was used: automated exposure control, adjustment of mA and/or kV according to patient size. COMPARISON: None. FINDINGS: Image quality: Excellent. Maxillary Sinuses: No bony remodeling or destruction. [id number] mucosal thickening is seen within the inferior maxillary sinuses. Ethmoid Air Cells: No bony remodeling or destruction. Sinuses are clear. Sphenoid Sinuses: No bony remodeling or destruction. Sinuses are clear. Frontal Sinuses: No bony remodeling or destruction. Minimal to mild mucosal thickening is seen within the inferomedial frontal sinuses. Ostiomeatal Complexes: Ostiomeatal complexes are patent, yet they are constitutionally narrowed. No Evelina cells. Miscellaneous: Visualized intra-orbital contents are normal. There are bilateral arminda bullosa. There is minimal rightward nasal septal deviation. IMPRESSION: Paranasal sinus disease is seen, which is most prominent within the maxillary sinuses. 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 Dictated by: Sancho Sherman M.D. on 12/17/2020 at 14:28 Approved by: Sancho Sherman M.D. on 12/17/2020 at 14:30
== END ==
PROVIDERS: PCP Family Medicine; Referring Provider Family Medicine; Visit Provider Family Medicine
DX: J30.9 Allergic rhinitis, unspecified (principal); J32.8 Other chronic sinusitis; R09.81 Nasal congestion; J34.3 Hypertrophy of nasal turbinates
CPT/HCPCS: 70486

== ENCOUNTER → 2021-11-13 14:17 | Outpatient (CLI) | payer MEDICARE, OTHER, SELFPAY ==
--- NOTE | 2021-11-13 | DI.MG.S_ITS ---
BILATERAL DIGITAL SCREENING MAMMOGRAM 3D/2D WITH CAD: 11/13/2021 CLINICAL: Routine screening. Personal history of right breast cancer. Family history of breast cancer. Comparison is made to exams dated: 11/03/2020 mammogram, 11/02/2019 mammogram, and 08/23/2018 mammogram - [facility]. There are scattered fibroglandular elements in both breasts. Current study was also evaluated with a Computer Aided Detection (CAD) system. There is a benign area of fat necrosis in the right breast. There also are benign calcifications in both breasts. Additionally, there are benign post operative findings in the right breast. No significant masses, calcifications, or other findings are seen in either breast. There has been no significant interval change. IMPRESSION: BENIGN There is no mammographic evidence of malignancy. A 1 year screening mammogram is recommended. This exam was interpreted at Station ID: [id number]. NOTE: For mammograms, a report in lay terms will be sent to the patient. Approximately 15% of breast malignancies will not be visualized mammographically. In the management of a palpable breast mass, a negative mammogram must not discourage biopsy of a clinically suspicious lesion. Electronically Signed By: Constantin Duran M.D., jr/isabelle:11/13/2021 16:23:13 letter sent: Normal Exam ACR BI-RADS Category 2: Benign Finding(s) 3342F
== END ==
PROVIDERS: PCP Family Medicine; Referring Provider Family Medicine; Visit Provider Family Medicine
DX: Z12.31 Encounter for screening mammogram for malignant neoplasm of breast (principal); Z85.3 Personal history of malignant neoplasm of breast; Z80.3 Family history of malignant neoplasm of breast
CPT/HCPCS: 77063; 77067

== ENCOUNTER 2021-12-22 14:15 | Emergency (ER) | payer MEDICARE, OTHER, SELFPAY ==
[2021-12-22] VITALS (13 sets, daily range): BP systolic 154–193; BP diastolic 69–95; PULSE 83–122; RESP 11–28; TEMP 36.4; O2SAT 94–97; BMI 28.3
--- NOTE | 2021-12-22 14:22 | DI.RAD.S_ITS ---
PROCEDURE: XR CHEST 1V INDICATIONS: chest pain TECHNIQUE: One view of the chest was acquired. COMPARISON: [facility], [place], XR CHEST 1V, 07/24/2020, 11:21. [facility], , CHEST 2 VIEW, 07/30/2015, 11:27. FINDINGS: Surgical changes and devices: Right axillary clips. Right breast clips. Lungs and pleura: Lungs appear clear. No pleural effusions or pneumothorax. Mediastinum: Mediastinal contours appear unchanged. Heart size is normal. Bones and chest wall: No suspicious bony lesions. Overlying soft tissues appear unremarkable. IMPRESSION: No acute cardiopulmonary abnormality. Dictated by: Osman Pedersen M.D. on 12/22/2021 at 16:05 Approved by: Osman Pedersen M.D. on 12/22/2021 at 16:06
[2021-12-22 14:48] LABS: Add Manual Diff / Slide Review NO; Basophils Absolute Auto 100 /uL (0-100); Basophils Percent Auto 0.9 % (0-2); Eosinophils Absolute Auto 0 /uL (0-450); Eosinophils Percent Auto 0.3 % (2-4); Hematocrit 40.7 % (36-46); Hemoglobin 13.7 g/dL (12.0-16.0); Lymphocytes Absolute Auto 1600 /uL (1100-4500); Lymphocytes Percent Auto 27.4 % (25-40); Mean Corpuscular HGB Conc 33.8 % (30-36); Mean Corpuscular Hemoglobin 30.3 PG (26-34); Mean Corpuscular Volume 89.6 fL (80-100); Monocytes Absolute Auto 400 /uL (0-900); Monocytes Percent Auto 6.6 % (3-14); Neutrophils Absolute Auto 3800 /uL (1500-7000); Neutrophils Percent Auto 64.8 % (50-75); Platelet Count 243 X10^3/uL (150-400); Red Blood Cell Count 4.53 X10^6/uL (4.0-5.2); Red Cell Distribution Width 13.7 % (11.6-14.8); White Blood Cell Count 5.9 X10^3/uL (4.5-11.0)
[2021-12-22 14:53] LABS: INR 1.1 (0.9-1.3); Prothrombin Time 11.7 SECONDS (10.1-12.7)
[2021-12-22 14:55] LABS: PTT Partial Thromboplastin Tim 31 SECONDS (26.4-36.2)
[2021-12-22 14:58] LABS: Alanine Aminotransferase 21 IU/L (<35); Albumin 4.2 g/dL (3.5-5.0); Albumin Globulin Ratio 1.3 (1.0-2.8); Alkaline Phosphatase 91 U/L (38-126); Aspartate Aminotransferase 33 IU/L (14-36); BUN Creatinine Ratio 24.7 (6-22); Bilirubin Total 0.6 mg/dL (0.2-1.3); Blood Urea Nitrogen 20 mg/dL (7-17); Calcium 8.8 mg/dL (8.4-10.2); Carbon Dioxide 24 mmol/L (22-32); Chloride 105 mmol/L (98-107); Creatine Kinase 39 U/L (30-135); Estimated Glomerular Filt Rate > 60 mL/min (>60); Globulin 3.2 g/dL (1.7-4.1); Glucose 185 mg/dL (80-110); HEMOLYSIS < 15 (0-50); Lipase 82 U/L (23-300); Magnesium 1.9 mg/dL (1.6-2.3); Potassium 4.2 mmol/L (3.4-5.1); Sodium 138 mmol/L (137-145); Total Protein 7.4 g/dL (6.3-8.2)
[2021-12-22 15:08] LABS: Troponin I < 0.012 ng/mL (0.01-0.034)
--- NOTE | 2021-12-22 16:31 | PC.NURSE ---
Addendum entered by Lexi Roper R.N. 12/22/21 16:50: Pt reports sweating during episodes of chest tightness. Chest tightness is just below both breasts. Pt reports taking 12.5 mg of metoprolol nightly. Original Note: Pt reports intermittent chest pain that began on Tuesday (12/20/21) with SOB upon walking/exertion. Pt reports feeling very tired for the past couple weeks. Reports diarrhea. Pt denies chest pain currently. Denies dizziness, N&V, or any change in medications. Encouraged to call if any changes in symptoms. Call light within reach.
[2021-12-22 16:35] LABS: D Dimer 201 ng/mL (<230)
[2021-12-22 17:06] LABS: Thyroid Stimulating Hormone 0.982 uIU/mL (0.47-4.68)
--- NOTE | 2021-12-22 19:00 | ED.ARRPALP ---
HPI - Arrhythmia/Palpitations General Chief Complaint: Arrhythmia/Palpitations Stated Complaint: Chest pain/fast heart beat Time Seen by Provider: 12/22/21 17:51 Source: patient Mode of arrival: Ambulatory History of Present Illness HPI narrative: 81-year-old female nonsmoker with history of hypertension and prior episodes of tachycardia presents with her and a chief complaint an episode of a fast heart rate and some chest pressure yesterday and then another 1 today. She is not currently having any symptoms. She denies any dizziness, weakness or lightheadedness. She denies nausea, vomiting or diarrhea. She denies any fever or chills. She denies recent travel, history of blood clot, trauma or injury. She denies any change in medications or diet. She denies exertional symptoms. She does state that over the past few years she feels more tired with exertion than she historically has. About 1 year ago she had a stress test and an echocardiogram that are reported to have been unremarkable Related Data Home Medications Medication Instructions Recorded Confirmed ASPIRIN (Aspirin) Q DAY ##0 12/19/12 cyclosporine 0.05 % eye drops in a 1 drp OPHTH Q DAY ##0 01/16/16 dropperette (Restasis) fluticasone propionate 50 1 spray intranasal QDAY ##1 01/16/16 mcg/actuation nasal spray,suspension (Flonase Allergy Relief) metoprolol succinate 25 mg 12.5 mg PO DAILY 12/22/21 12/22/21 tablet,extended release 24 hr Allergies Allergy/AdvReac Type Severity Reaction Status Date / Time No Known Drug Allergies Allergy Verified 12/22/21 14:20 Review of Systems Review of Systems Narrative: GENERAL: Denies chills, fatigue, malaise, fever, sweats. HEENT: Denies sinus pain, ear pain, sore throat, difficulty swallowing, dizziness. RESPIRATORY: Denies dyspnea, cough, wheezing, hemoptysis, sputum. CARDIOVASCULAR: See HPI GASTROINTESTINAL: Denies nausea, vomiting, abdominal pain, diarrhea, constipation, melena. : Denies dysuria, frequency, incontinence, hematuria, urinary retention. MUSCULOSKELETAL: denies weakness, joint pain, or bony pain SKIN: Denies rash, skin lesions, or other NEUROLOGIC: Denies weakness, headache, numbness, change in speech, confusion, seizures, incoordination. PSYCHIATRIC: No concerning psychosocial issues. 12 point review of systems is negative except for those stated above Patient History Medical History HLD (hyperlipidemia) Social History Smoking Status: Unknown if ever smoked Smoking Status: Unknown if ever smoked alcohol intake frequency: holidays/special occasions only Substance Use Type: does not use Exam Narrative Exam Narrative: GENERAL: [81] year old patient appears stated age. Well-developed patient, in mild distress. HEAD: Atraumatic. Normocephalic. EYES: Pupils equal round and reactive. Extraocular motions intact. No scleral icterus. No injection or drainage. ENT: Nose without bleeding, purulent drainage. Throat without erythema, tonsillar hypertrophy or exudate. Airway patent. NECK: Trachea midline. Non tender CARDIOVASCULAR: Regular rate and rhythm without murmurs, gallops, or rubs. RESPIRATORY: Clear to auscultation. Breath sounds equal bilaterally. No wheezes, rales, or rhonchi. GASTROINTESTINAL: Abdomen soft, non-tender, nondistended. EXTREMITIES: No edema or joint tenderness. BACK: Nontender without deformity or crepitance. No flank tenderness. NEURO: AOx3. SKIN: No rash or erythema of visible areas Initial Vital Signs Initial Vital Signs: Vital Signs Temperature 97.6 F 12/22/21 14:20 Pulse Rate 122 H 12/22/21 14:20 Respiratory Rate 15 12/22/21 14:20 Blood Pressure 187/85 H 12/22/21 14:20 Pulse Oximetry 95 12/22/21 14:20 Oxygen Delivery Method 12/22/21 14:20 Course Orders Ordered: ED Orders 12/22/21 19:10 Troponin & CK Cardiac Panel Stat 12/22/21 19:28 EKG-12 Lead Routine Vital Signs Vital signs: Vital Signs - 8 hr 12/22/21 20:00 12/22/21 20:01 12/22/21 20:01 Pulse Rate 88 87 Respiratory Rate 18 22 Blood Pressure 166/79 H Pulse Oximetry 94 95 MDM - Arrhythmia/Palpitations Lab Data Result diagrams: 12/22/21 14:30 12/22/21 14:30 Labs: Lab Results 07/26/22 07/26/22 07/26/22 Range/Units 14:30 14:30 14:30 WBC 5.9 (4.5-11.0) X10^3/uL RBC 4.53 (4.0-5.2) X10^6/uL Hgb 13.7 (12.0-16.0) g/dL Hct 40.7 (36-46) % MCV 89.6 (80-100) fL MCH 30.3 (26-34) PG MCHC 33.8 (30-36) % RDW 13.7 (11.6-14.8) % Plt Count 243 (150-400) X10^3/uL Neut % (Auto) 64.8 (50-75) % Lymph % (Auto) 27.4 (25-40) % [place] % (Auto) 6.6 (3-14) % Eos % (Auto) 0.3 L (2-4) % Baso % (Auto) 0.9 (0-2) % Neut # (Auto) 3800 (6410-3788) /uL Lymph # (Auto) 1600 (2130-0366) /uL [place] # (Auto) 400 (0-900) /uL Eos # (Auto) 0 (0-450) /uL Baso # (Auto) 100 (0-100) /uL PT 11.7 (10.1-12.7) SECONDS INR 1.1 (0.9-1.3) APTT 31 (26.4-36.2) SECONDS D-Dimer (<230) ng/mL Sodium 138 (137-145) mmol/L Potassium 4.2 (3.4-5.1) mmol/L Chloride 105 (98-107) mmol/L Carbon Dioxide 24 (22-32) mmol/L BUN 20 H (7-17) mg/dL Creatinine 0.81 (0.52-1.04) mg/dL Estimated GFR > 60 (>60) mL/min BUN/Creatinine Ratio 24.7 H (6-22) Glucose 185 H (80-110) mg/dL Calcium 8.8 (8.4-10.2) mg/dL Magnesium 1.9 (1.6-2.3) mg/dL Total Bilirubin 0.6 (0.2-1.3) mg/dL AST 33 (14-36) IU/L ALT 21 (<35) IU/L Alkaline Phosphatase 91 (38-126) U/L Total Creatine Kinase 39 (30-135) U/L CK-MB (CK-2) TNP CK-MB (CK-2) Rel Index TNP Troponin I < 0.012 (0.01-0.034) ng/mL NT-Pro-B Natriuret Pep (<450) pg/mL Total Protein 7.4 (6.3-8.2) g/dL Albumin 4.2 (3.5-5.0) g/dL Globulin 3.2 (1.7-4.1) g/dL Albumin/Globulin Ratio 1.3 (1.0-2.8) Lipase 82 (23-300) U/L TSH (0.47-4.68) uIU/mL 12/22/21 12/22/21 12/22/21 Range/Units 14:30 14:30 14:30 WBC (4.5-11.0) X10^3/uL RBC (4.0-5.2) X10^6/uL Hgb (12.0-16.0) g/dL Hct (36-46) % MCV (80-100) fL MCH (26-34) PG MCHC (30-36) % RDW (11.6-14.8) % Plt Count (150-400) X10^3/uL Neut % (Auto) (50-75) % Lymph % (Auto) (25-40) % [place] % (Auto) (3-14) % Eos % (Auto) (2-4) % Baso % (Auto) (0-2) % Neut # (Auto) (7779-6440) /uL Lymph # (Auto) (6580-3451) /uL [place] # (Auto) (0-900) /uL Eos # (Auto) (0-450) /uL Baso # (Auto) (0-100) /uL PT (10.1-12.7) SECONDS INR (0.9-1.3) APTT (26.4-36.2) SECONDS D-Dimer 201 (<230) ng/mL Sodium (137-145) mmol/L Potassium (3.4-5.1) mmol/L Chloride (98-107) mmol/L Carbon Dioxide (22-32) mmol/L BUN (7-17) mg/dL Creatinine (0.52-1.04) mg/dL Estimated GFR (>60) mL/min BUN/Creatinine Ratio (6-22) Glucose (80-110) mg/dL Calcium (8.4-10.2) mg/dL Magnesium (1.6-2.3) mg/dL Total Bilirubin (0.2-1.3) mg/dL AST (14-36) IU/L ALT (<35) IU/L Alkaline Phosphatase (38-126) U/L Total Creatine Kinase (30-135) U/L CK-MB (CK-2) CK-MB (CK-2) Rel Index Troponin I (0.01-0.034) ng/mL NT-Pro-B Natriuret Pep 364 (<450) pg/mL Total Protein (6.3-8.2) g/dL Albumin (3.5-5.0) g/dL Globulin (1.7-4.1) g/dL Albumin/Globulin Ratio (1.0-2.8) Lipase (23-300) U/L TSH 0.982 (0.47-4.68) uIU/mL // Range/Units 19:10 WBC (4.5-11.0) X10^3/uL RBC (4.0-5.2) X10^6/uL Hgb (12.0-16.0) g/dL Hct (36-46) % MCV (80-100) fL MCH (26-34) PG MCHC (30-36) % RDW (11.6-14.8) % Plt Count (150-400) X10^3/uL Neut % (Auto) (50-75) % Lymph % (Auto) (25-40) % [place] % (Auto) (3-14) % Eos % (Auto) (2-4) % Baso % (Auto) (0-2) % Neut # (Auto) (7524-6205) /uL Lymph # (Auto) (3849-6758) /uL [place] # (Auto) (0-900) /uL Eos # (Auto) (0-450) /uL Baso # (Auto) (0-100) /uL PT (10.1-12.7) SECONDS INR (0.9-1.3) APTT (26.4-36.2) SECONDS D-Dimer (<230) ng/mL Sodium (137-145) mmol/L Potassium (3.4-5.1) mmol/L Chloride (98-107) mmol/L Carbon Dioxide (22-32) mmol/L BUN (7-17) mg/dL Creatinine (0.52-1.04) mg/dL Estimated GFR (>60) mL/min BUN/Creatinine Ratio (6-22) Glucose (80-110) mg/dL Calcium (8.4-10.2) mg/dL Magnesium (1.6-2.3) mg/dL Total Bilirubin (0.2-1.3) mg/dL AST (14-36) IU/L ALT (<35) IU/L Alkaline Phosphatase (38-126) U/L Total Creatine Kinase 36 (30-135) U/L CK-MB (CK-2) TNP CK-MB (CK-2) Rel Index TNP Troponin I < 0.012 (0.01-0.034) ng/mL NT-Pro-B Natriuret Pep (<450) pg/mL Total Protein (6.3-8.2) g/dL Albumin (3.5-5.0) g/dL Globulin (1.7-4.1) g/dL Albumin/Globulin Ratio (1.0-2.8) Lipase (23-300) U/L TSH (0.47-4.68) uIU/mL Urine Dip Bedside Urine Glucose Negative Bedside Urine Bilirubin - Negative Bedside Urine Ketone - Negative Urine Specific [place] 1.010 Bedside Urine Occult Blood - Negative Bedside Urine pH 8 Bedside Urine Protein - Negative Bedside Urine Urobilinogen - Negative Bedside Urine Nitrite - Negative Bedside Urine Leukocytes - Negative Esterase Imaging Data Chest x-ray: Radiologist's Impresson: Deborah Sands??81??F??1940 ? Allergy/Adv: No Known Drug Allergies (More??) Close Chest X-Ray (Signed) Osman Pedersen - 12/22/21 Mammogram Screening (Signed) Constantin Duran - 11/13/[address] (Signed) Sancho Sherman - 12/17/20 Myocardial Perfusion Scan Nuc Med (Signed) Tariq Gonzalez - 11/11/20 Mammogram Screening (Signed) Emery Chairez - 11/03/20 Echocardiogram Ultrasound (Signed) Ludmila Do - 10/28/20 Knee X-Ray (Signed) Ayden Shaw - 09/01/20 Hip X-Ray (Signed) JeevanKalyan - 08/01/20 Chest X-Ray (Signed) Uma Schmitz - 07/24/20 Bone Densitometry 12/05/19 Mammogram Screening (Signed) BrysonYousif - 11/02/19 Mammogram Screening (Signed) Emery Chairez - 08/23/18 Renal Ultrasound (Signed) Sancho Sherman - 05/04/18 Pelvis Ultrasound (Signed) Sancho Sherman - 05/04/18 Vascular Ultrasound (Signed) Saurabh Mccoy - 01/05/18 Launch[facility] [address] XRay Report Signed Patient: Deborah Sands MR#: [id number] : 1940 Acct:[id number] Age/Sex: 81 / F Date of Service: 12/22/21 Loc: ED Accession Number: [id number] ?? Procedure: XR chest 1V Ordering Provider: Salma Chan D.O. PROCEDURE:? XR CHEST 1V ? INDICATIONS:? chest pain ? TECHNIQUE:? One view of the chest was acquired.? ? COMPARISON:? [facility], XR CHEST 1V, 07/24/2020, 11:21.? [facility], CHEST 2 VIEW, 07/30/2015, 11:27. ? FINDINGS:? ? Surgical changes and devices:? Right axillary clips.? Right breast clips. ? Lungs and pleura:? Lungs appear clear.? No pleural effusions or pneumothorax.? ? Mediastinum:? Mediastinal contours appear unchanged.? Heart size is normal.? ? Bones and chest wall:? No suspicious bony lesions.? Overlying soft tissues appear unremarkable.? ? IMPRESSION:? No acute cardiopulmonary abnormality. ? ? ? Dictated by: Osman Pedersen M.D. on 12/22/2021 at 16:05 ? ? Approved by: Osman Pedersen M.D. on 12/22/2021 at 16:06 ? ECG Data Interpretation: [1422] EKG is sinus tach rate [115 ] and free of any signs of ischemia or ectopy. No ST segmental elevation or depression. No T wave inversions Discharge Plan Departure Patient Disposition: Home Clinical Impression: Sinus tachycardia Instructions: DI for Arrhythmias Activity Restrictions/Additional Instructions: *You have been diagnosed with [rapid heart rate and atypical chest pain. Thankfully your history and physical exam, EKGs and blood work are reassuring and there is no evidence of heart attack, blood clot or pneumonia.] *What to do: *Please increase your metoprolol from 12.5 mg daily to 25 mg daily. Otherwise keep your medications the same [ ] New medication prescriptions sent to your pharmacy: [ ] [ ] New medication written as a paper prescription [ ] No new medications given *Please follow up with your primary care provider in 2-3 days, call for an appointment. Let them know you were seen in the Emergency Department and that we ask that you be seen in follow up. We will electronically transmit a record of today's note if your PCP is in our system *If you do not have a primary care provider please contact the [facility] Resource line at [phone]. They will ask some questions about your medical history and help get you set up with a doctor in the community. *Return to Emergency Department if you should have any new, worsening or concerning symptoms, such as [fever greater than 101 F, shaking chills, worsening pain, persistent vomiting or other bothersome symptoms] Prescriptions: No Action ASPIRIN (Aspirin) Q DAY Qty: 0 fluticasone propionate [Flonase Allergy Relief] 9.9 ML spray,suspension 1 spray Intranasal QDAY Qty: 1 cyclosporine [Restasis] 1 EACH dropperette 1 drp OPHTH Q DAY Qty: 0 metoprolol succinate 25 mg tablet extended release 24 hr 12.5 mg PO DAILY Label Comments: take 1/2 tablet by mouth once daily Referrals: Mitch Price MD [Primary Care Provider] - Visit Report Forms: Patient Portal/API
[2021-12-22 19:34] LABS: Creatine Kinase 36 U/L (30-135)
[2021-12-22 19:35] LABS: NT-proBNP (BNP-Adult 18+) 364 pg/mL (<450)
[2021-12-22 19:47] LABS: Troponin I < 0.012 ng/mL (0.01-0.034)
== END 2021-12-22 20:34 | disposition home or self-care (01) ==
PROVIDERS: Emergency Medicine; Student in an Organized Health Care Education/Training Program; Emergency Provider Emergency Medicine; PCP Family Medicine
DX: R00.0 Tachycardia, unspecified (principal); R07.9 Chest pain, unspecified
CPT/HCPCS: 36415; 71045; 80053; 81003; 82550; 83690; 83735; 83880; 84443; 84484; 85025; 85379; 85610; 85730; 93005; 99283; 99284

== ENCOUNTER 2022-03-01 14:46 | Emergency (ER) | payer MEDICARE, OTHER, SELFPAY ==
[2022-03-01] VITALS (8 sets, daily range): BP systolic 107–198; BP diastolic 55–98; PULSE 107–135; RESP 16–22; TEMP 36.6; O2SAT 95–98
--- NOTE | 2022-03-01 14:48 | DI.RAD.S_ITS ---
PROCEDURE: XR CHEST 1V INDICATIONS: suspected sepsis TECHNIQUE: One view of the chest was acquired. COMPARISON: [facility], CR, XR CHEST 1V, 12/22/2021, 15:46. FINDINGS: Surgical changes and devices: Surgical clips are seen in right axilla. Lungs and pleura: Lungs are clear. No pleural effusions or pneumothorax. Mediastinum: Mediastinal contours appear normal. Heart size is normal. Bones and chest wall: No suspicious bony lesions. Overlying soft tissues appear unremarkable. IMPRESSION: No acute cardiopulmonary pathology. Dictated by: Ayden Shaw M.D. on 03/01/2022 at 15:38 Approved by: Ayden Shaw M.D. on 03/01/2022 at 15:43
[2022-03-01 15:17] LABS: Add Manual Diff / Slide Review NO; Basophils Absolute Auto 0 /uL (0-100); Basophils Percent Auto 0.2 % (0-2); Eosinophils Absolute Auto 100 /uL (0-450); Eosinophils Percent Auto 0.7 % (2-4); Hematocrit 40.5 % (36-46); Hemoglobin 13.4 g/dL (12.0-16.0); Lymphocytes Absolute Auto 400 /uL (1100-4500); Lymphocytes Percent Auto 5.3 % (25-40); Mean Corpuscular HGB Conc 33.1 % (30-36); Mean Corpuscular Hemoglobin 30.1 PG (26-34); Mean Corpuscular Volume 91.1 fL (80-100); Monocytes Absolute Auto 400 /uL (0-900); Monocytes Percent Auto 4.4 % (3-14); Neutrophils Absolute Auto 7100 /uL (1500-7000); Neutrophils Percent Auto 89.4 % (50-75); Platelet Count 236 X10^3/uL (150-400); Red Blood Cell Count 4.45 X10^6/uL (4.0-5.2); Red Cell Distribution Width 13.4 % (11.6-14.8); White Blood Cell Count 7.9 X10^3/uL (4.5-11.0)
[2022-03-01 15:36] LABS: Alanine Aminotransferase 40 IU/L (<35); Albumin Globulin Ratio 1.1 (1.0-2.8); Alkaline Phosphatase 133 U/L (38-126); Aspartate Aminotransferase 40 IU/L (14-36); Bilirubin Total 0.8 mg/dL (0.2-1.3); Blood Urea Nitrogen 15 mg/dL (7-17); Calcium 8.7 mg/dL (8.4-10.2); Carbon Dioxide 28 mmol/L (22-32); Chloride 104 mmol/L (98-107); Estimated Glomerular Filt Rate > 60 mL/min (>60); Globulin 3.8 g/dL (1.7-4.1); Glucose 148 mg/dL (80-110); HEMOLYSIS 23 (0-50); Lipase 61 U/L (23-300); Potassium 4.3 mmol/L (3.4-5.1); Sodium 141 mmol/L (137-145); Total Protein 7.8 g/dL (6.3-8.2)
[2022-03-01 15:37] LABS: Lactate (Lactic Acid) 2.1 mmol/L (0.7-2.1)
--- NOTE | 2022-03-01 15:39 | ED_ITS ---
HPI - General Adult General Chief complaint: Shortness of Breath/Dyspnea Stated complaint: SOB, Tachycardia Time Seen by Provider: 03/01/22 14:49 History of Present Illness HPI narrative: 81-year-old woman with a history of hypertension currently on metoprolol succinate 25 mg daily, hyperlipidemia, mild reflux and intermittent episodes of loose stool presents today with 3-4 days complaint of general malaise, tachycardia initially complained of some mild dyspnea and getting shaky. She denies fever, cough, chills. She notes she does have mild headache. Has not been having any abdominal pain. She feels that her lower extremities have been a bit more swollen recently and she chronically has her left calf slightly more swollen than the right. This has not changed. This is now her visit for similar findings with no significant abnormalities noted. Related Data Home Medications Medication Instructions Recorded Confirmed ASPIRIN (Aspirin) Q DAY ##0 12/19/12 cyclosporine 0.05 % eye drops in a 1 drp OPHTH Q DAY ##0 01/16/16 dropperette (Restasis) fluticasone propionate 50 1 spray intranasal QDAY ##1 01/16/16 mcg/actuation nasal spray,suspension (Flonase Allergy Relief) metoprolol succinate 25 mg 12.5 mg PO DAILY 12/22/21 12/22/21 tablet,extended release 24 hr Allergies Allergy/AdvReac Type Severity Reaction Status Date / Time No Known Drug Allergies Allergy Verified 12/22/21 14:20 Review of Systems Review of Systems Narrative: Remainder of complete review of systems is otherwise unremarkable except for that included in the HPI. Patient History Medical History HLD (hyperlipidemia) Hyperlipidemia Tachycardia Social History Smoking Status: Unknown if ever smoked Smoking Status: Unknown if ever smoked alcohol intake frequency: holidays/special occasions only Substance Use Type: does not use Exam Initial Vital Signs Initial Vital Signs: Vital Signs Temperature 97.8 F 03/01/22 14:48 Pulse Rate 135 H 03/01/22 14:48 Respiratory Rate 22 03/01/22 14:48 Blood Pressure 198/98 H 03/01/22 14:48 Pulse Oximetry 96 03/01/22 14:48 Oxygen Delivery Method 03/01/22 14:48 General: Healthy appearing, in no acute distress. Able to give a complete and coherent history. Well-nourished well-developed HEENT: Moist mucous membranes, normal sclera with reactive pupils, Neck: No JVD, supple Respiratory: Lungs are clear to auscultation, no wheezing no rales no rhonchi. Full and symmetrical air movement Cardiac: Tachycardic without murmurs Abdomen: Soft, nontender, good bowel tones, no flank pain Skin: Warm and dry, no rashes Neurologic: Grossly neurologically intact with no obvious asymmetries or abnormalities Extremities: No trauma, well perfused, left calf slightly more swollen than the right (patient feels that is her baseline) Psych: Cooperative, appropriate insight and affect Course Orders Ordered: ED Orders 03/01/22 14:48 XR chest 1V Stat EKG-12 Lead Stat RT Consult Eval and Treat NOW 03/01/22 15:10 Complete Blood Count AUTO DIFF Stat Comprehensive Metabolic Panel Stat Lactate (Lactic Acid) Stat Lipase Stat Magnesium Stat Procalcitonin Stat Troponin & CK Cardiac Panel Stat 03/01/22 15:15 EKG-12 Lead Stat 03/01/22 16:10 Blood Culture Stat 03/01/22 17:00 CT angio chest PE protocol Stat Discontinued Medications Sodium Chloride (Normal Saline 0.9%) 1,000 mls @ 1,000 mls/hr IV BOLUS ONE Stop: 03/01/22 15:47 Last Infusion: 03/01/22 18:18 Dose: 0 mls/hr Documented By: Admin: 03/01/22 15:58 Dose: 1,000 mls/hr Documented By: CECIL Vital Signs Vital signs: Vital Signs - 8 hr 03/01/22 14:48 03/01/22 16:40 03/01/22 16:44 Temperature 97.8 F Pulse Rate 135 H 107 H Respiratory Rate 22 16 Blood Pressure 198/98 H 117/57 L Pulse Oximetry 96 Oxygen Delivery Method Room Air 03/01/22 16:44 03/01/22 17:00 03/01/22 17:00 Temperature Pulse Rate 107 H 111 H Respiratory Rate 21 17 Blood Pressure 125/61 Pulse Oximetry 97 95 Oxygen Delivery Method Room Air 03/01/22 17:32 03/01/22 17:33 03/01/22 17:33 Temperature Pulse Rate 107 H 107 H Respiratory Rate Blood Pressure 115/59 L Pulse Oximetry 98 98 Oxygen Delivery Method Medical Decision Making Lab Data Result diagrams: 03/01/22 15:10 03/01/22 15:10 Labs: Lab Results 03/01/22 03/01/22 03/01/22 Range/Units 15:10 15:10 15:10 WBC 7.9 (4.5-11.0) X10^3/uL RBC 4.45 (4.0-5.2) X10^6/uL Hgb 13.4 (12.0-16.0) g/dL Hct 40.5 (36-46) % MCV 91.1 (80-100) fL MCH 30.1 (26-34) PG MCHC 33.1 (30-36) % RDW 13.4 (11.6-14.8) % Plt Count 236 (150-400) X10^3/uL Neut % (Auto) 89.4 H (50-75) % Lymph % (Auto) 5.3 L (25-40) % [place] % (Auto) 4.4 (3-14) % Eos % (Auto) 0.7 L (2-4) % Baso % (Auto) 0.2 (0-2) % Neut # (Auto) 7100 H (2241-7820) /uL Lymph # (Auto) 400 L (8104-4581) /uL [place] # (Auto) 400 (0-900) /uL Eos # (Auto) 100 (0-450) /uL Baso # (Auto) 0 (0-100) /uL Sodium 141 (137-145) mmol/L Potassium 4.3 (3.4-5.1) mmol/L Chloride 104 (98-107) mmol/L Carbon Dioxide 28 (22-32) mmol/L BUN 15 (7-17) mg/dL Creatinine 0.75 (0.52-1.04) mg/dL Estimated GFR > 60 (>60) mL/min BUN/Creatinine Ratio 20.0 (6-22) Glucose 148 H (80-110) mg/dL Lactate 2.1 (0.7-2.1) mmol/L Calcium 8.7 (8.4-10.2) mg/dL Magnesium (1.6-2.3) mg/dL Total Bilirubin 0.8 (0.2-1.3) mg/dL AST 40 H (14-36) IU/L ALT 40 H (<35) IU/L Alkaline Phosphatase 133 H (38-126) U/L Total Creatine Kinase (30-135) U/L CK-MB (CK-2) CK-MB (CK-2) Rel Index Troponin I (0.01-0.034) ng/mL Total Protein 7.8 (6.3-8.2) g/dL Albumin 4.0 (3.5-5.0) g/dL Globulin 3.8 (1.7-4.1) g/dL Albumin/Globulin Ratio 1.1 (1.0-2.8) Lipase 61 (23-300) U/L Procalcitonin 0.12 (<0.5) ng/mL 03/01/22 03/01/22 Range/Units 15:10 17:35 WBC (4.5-11.0) X10^3/uL RBC (4.0-5.2) X10^6/uL Hgb (12.0-16.0) g/dL Hct (36-46) % MCV (80-100) fL MCH (26-34) PG MCHC (30-36) % RDW (11.6-14.8) % Plt Count (150-400) X10^3/uL Neut % (Auto) (50-75) % Lymph % (Auto) (25-40) % [place] % (Auto) (3-14) % Eos % (Auto) (2-4) % Baso % (Auto) (0-2) % Neut # (Auto) (1904-5928) /uL Lymph # (Auto) (1420-3266) /uL [place] # (Auto) (0-900) /uL Eos # (Auto) (0-450) /uL Baso # (Auto) (0-100) /uL Sodium (137-145) mmol/L Potassium (3.4-5.1) mmol/L Chloride (98-107) mmol/L Carbon Dioxide (22-32) mmol/L BUN (7-17) mg/dL Creatinine (0.52-1.04) mg/dL Estimated GFR (>60) mL/min BUN/Creatinine Ratio (6-22) Glucose (80-110) mg/dL Lactate 1.8 (0.7-2.1) mmol/L Calcium (8.4-10.2) mg/dL Magnesium 1.9 (1.6-2.3) mg/dL Total Bilirubin (0.2-1.3) mg/dL AST (14-36) IU/L ALT (<35) IU/L Alkaline Phosphatase (38-126) U/L Total Creatine Kinase 29 L (30-135) U/L CK-MB (CK-2) TNP CK-MB (CK-2) Rel Index TNP Troponin I < 0.012 (0.01-0.034) ng/mL Total Protein (6.3-8.2) g/dL Albumin (3.5-5.0) g/dL Globulin (1.7-4.1) g/dL Albumin/Globulin Ratio (1.0-2.8) Lipase (23-300) U/L Procalcitonin (<0.5) ng/mL Imaging Data Chest x-ray: Radiologist's Impression: FINDINGS:? ? Surgical changes and devices:? Surgical clips are seen in right axilla. ? Lungs and pleura:? Lungs are clear.? No pleural effusions or pneumothorax.? ? Mediastinum:? Mediastinal contours appear normal.? Heart size is normal.? ? Bones and chest wall:? No suspicious bony lesions.? Overlying soft tissues appear unremarkable.? ? IMPRESSION:? No acute cardiopulmonary pathology. ? ? Dictated by: Ayden Shaw M.D. on 03/01/2022 at 15:38 ? ? CT PE study: Radiologist's Impression: FINDINGS:? Image quality:? Excellent.? ? Pulmonary arteries:? Pulmonary arteries are normal in size, and demonstrate no intraluminal filling defects to suggest central pulmonary embolism.? ? Lungs and pleura:? Central and peripheral airways are patent.? Scarring anteriorly in the right middle and upper lobes.? Coarse subpleural calcified nodule laterally in the left lower lobe.? Minor biapical and costophrenic sulci reticulation.? No dense consolidations, pleural effusion, or pneumothorax. ? Mediastinum:? Heart size is normal, without pericardial effusion.? Mild mitral annular calcification.? Noncalcified right hilar and calcified left hilar adenopathy.? There are noncalcified mildly enlarged mediastinal lymph nodes, a subcarinal node measuring 1.3 cm in short axis.? Thoracic aorta is normal in caliber and enhancement.? Esophagus is normal in caliber, without hiatal hernia.? ? Bones and chest wall:? The thyroid gland contains right lower pole coarse calcification and is otherwise normal.? There are surgical clips in the right axilla.? No lower neck or left axillary adenopathy.? There are dystrophic calcifications in the right breast.? No acute fractures or suspicious bone lesions. ? Abdomen:? Visualized upper abdominal solid organs appear normal in the early arterial phase of enhancement.? ? IMPRESSION:? ? 1. No pulmonary embolus. ? 2. Evidence of remote, healed granulomatous disease in the left hilum and lung. ? 3. Nonspecific noncalcified right hilar and mediastinal adenopathy.? ? 4. Prior treatment changes to the right breast and right axilla.? ? Dictated by: Sharee Howard M.D. on 03/01/2022 at 17:35 ? ? ECG Data Interpretation: Sinus tachycardia at a rate of [address] T wave changes without acute ischemia MDM Narrative Medical decision making narrative: 81-year-old woman with general malaise over the last number of days, presents with tachycardia without other specific findings. Initial workup is reassuring and she is in a sinus tachycardia. She is not significantly dehydrated but has responded slightly to a fluid bolus. There is no signs of anemia, acute i nfection, acute coronary syndrome, there is no wheezing and no suggestion of pneumonia or upper respiratory infection/viral syndrome. This is her 3rd visit for similar complaints and she is appropriately on metoprolol. At this point with recurrent acute episodes of sinus tachycardia with general malaise that tends to resolve after a couple of days possibility of pulmonary embolism is entertained. PERC score is high enough that CTA is ordered. CTA is unremarkable. Patient is re-evaluated and heart rate is down to 107, blood pressure is appropriate 115/59 with no additional interventions. Remainder of workup remains entirely benign and I do not have a full explanation for the episode of sinus tachycardia but I am not seeing any life-threatening explanations for such. Patient will be discharged home and I will ask her to follow-up with her primary care doctor and continue the metoprolol. Discharge Plan Departure Patient Disposition: Home Clinical Impression: Regular sinus tachycardia Instructions: DI for Tachycardia Activity Restrictions/Additional Instructions: Thank you for coming in today Your workup was very reassuring. Your heart rhythm was sinus tachycardia. At no point did you have any type of pathologic rhythm nor did you have atrial fibrillation. Your blood work is reassuring, there is no evidence of significant anemia, dehydration, kidney failure or electrolyte abnormality. No evidence of heart attack, blood clots in your lungs, additional abnormalities in your lungs such as a collapsed lung or tumors or masses. There is no evidence of wheezing or i nfection. I believe it is safe for you to go home. I do want you to continue taking the nighttime metoprolol. Regarding how much water to drink, as we age are dehydration sensitivity changes significantly. I would suggest that you consider adding a glass of water with your morning coffee and a glass of water sometime in the afternoon as part of your routine. This, in addition to usual food and drinking when you are thirsty should be perfectly adequate. If you are able to do this, you probably do not need to carry water bottles around with you throughout the day. If you find you have another episode of your heart beating rapidly, I would recommend that you take half a metoprolol pill, sit down, but your feet up, drink 2 large glasses of water and see how your heart rate is doing appr oximately 2 hours later. If your having fevers, cough, pain, shortness a breath or new findings you do need to have that immediately evaluated. I would encourage you to schedule an emergency department follow-up appointment with Dr. Price If you find that you are getting worse or develop any new symptoms, please feel free to return to the emergency department for further evaluation. Prescriptions: No Action ASPIRIN (Aspirin) Q DAY Qty: 0 fluticasone propionate [Flonase Allergy Relief] 9.9 ML spray,suspension 1 spray Intranasal QDAY Qty: 1 cyclosporine [Restasis] 1 EACH dropperette 1 drp OPHTH Q DAY Qty: 0 metoprolol succinate 25 mg tablet extended release 24 hr 12.5 mg PO DAILY Label Comments: take 1/2 tablet by mouth once daily Referrals: Mitch Price MD [Primary Care Provider] -
[2022-03-01 15:53] LABS: Procalcitonin 0.12 ng/mL (<0.5)
[2022-03-01] MEDS: SODIUM CHLORIDE 0.9% 1,000 ML 1000 ML IV (15:58)
[2022-03-01 16:56] LABS: Creatine Kinase 29 U/L (30-135); Magnesium 1.9 mg/dL (1.6-2.3)
--- NOTE | 2022-03-01 17:00 | DI.CT.S_ITS ---
PROCEDURE: CT ANGIO CHEST PE PROTOCOL INDICATIONS: sinus tach, dyspnea, elevated PERC score, suspect PE TECHNIQUE: After the administration of intravenous contrast, 2 mm thick sections acquired from the pulmonary apices to the posterior costophrenic angles. 3-dimensional maximum intensity projection (MIP) coronal and sagittal reformats were then acquired through the thorax. For radiation dose reduction, the following was used: automated exposure control, adjustment of mA and/or kV according to patient size. COMPARISON: None. FINDINGS: Image quality: Excellent. Pulmonary arteries: Pulmonary arteries are normal in size, and demonstrate no intraluminal filling defects to suggest central pulmonary embolism. Lungs and pleura: Central and peripheral airways are patent. Scarring anteriorly in the right middle and upper lobes. Coarse subpleural calcified nodule laterally in the left lower lobe. Minor biapical and costophrenic sulci reticulation. No dense consolidations, pleural effusion, or pneumothorax. Mediastinum: Heart size is normal, without pericardial effusion. Mild mitral annular calcification. Noncalcified right hilar and calcified left hilar adenopathy. There are noncalcified mildly enlarged mediastinal lymph nodes, a subcarinal node measuring 1.3 cm in short axis. Thoracic aorta is normal in caliber and enhancement. Esophagus is normal in caliber, without hiatal hernia. Bones and chest wall: The thyroid gland contains right lower pole coarse calcification and is otherwise normal. There are surgical clips in the right axilla. No lower neck or left axillary adenopathy. There are dystrophic calcifications in the right breast. No acute fractures or suspicious bone lesions. Abdomen: Visualized upper abdominal solid organs appear normal in the early arterial phase of enhancement. IMPRESSION: 1. No pulmonary embolus. 2. Evidence of remote, healed granulomatous disease in the left hilum and lung. 3. Nonspecific noncalcified right hilar and mediastinal adenopathy. 4. Prior treatment changes to the right breast and right axilla. Dictated by: Sharee Howard M.D. on 03/01/2022 at 17:35 Approved by: Sharee Howard M.D. on 03/01/2022 at 17:45
[2022-03-01 17:07] LABS: Troponin I < 0.012 ng/mL (0.01-0.034)
[2022-03-01 17:13] LABS: Reflexed Lactate in 2 Hours Y
[2022-03-01 18:11] LABS: Lactate 2HR (Lactic Acid Rflx) 1.8 mmol/L (0.7-2.1)
== END 2022-03-01 19:03 | disposition home or self-care (01) ==
PROVIDERS: Emergency Provider Emergency Medicine; PCP Family Medicine
DX: R00.0 Tachycardia, unspecified (principal); R06.00 Dyspnea, unspecified; R51.9 Headache, unspecified
CPT/HCPCS: 36415; 71045; 71275; 80053; 82550; 83605; 83690; 83735; 84145; 84484; 85025; 87040; 93005; 96360; 96361; 99284; Q9967

== ENCOUNTER 2022-03-30 08:26 | Emergency (ER) | payer MEDICARE, OTHER, SELFPAY ==
[2022-03-30] VITALS (29 sets, daily range): BP systolic 103–169; BP diastolic 55–86; PULSE 77–147; RESP 10–22; TEMP 36.7; O2SAT 94–99
--- NOTE | 2022-03-30 08:41 | ED.GENADULT ---
HPI - General Adult General Chief complaint: Arrhythmia/Palpitations Stated complaint: afib for 3 days Time Seen by Provider: 03/30/22 08:38 History of Present Illness HPI narrative: Ms. Sands is a 81-year-old woman with hypertension and tachycardia who comes to the ER this morning because of chest symptoms. Her fit bit tells her that she has probable atrial fibrillation. She 1st noticed this while awakened from sleep Tuesday to Tuesday. She is had a little bit of vague chest pressure little bit of vague shortness of breath which seems to be somewhat worse with exertion. She can not say that she feels the rapid heart rate in and of itself, but does feel some abnormality within her chest and some significant fatigue. She had a COVID booster just about last and noticed him myalgias and fatigue a couple of days after that. She is never had atrial fibrillation to her knowledge. She takes no anticoagulant medications but does take metoprolol. Related Data Home Medications Medication Instructions Recorded Confirmed ASPIRIN (Aspirin) Q DAY ##0 12/19/12 cyclosporine 0.05 % eye drops in a 1 drp OPHTH Q DAY ##0 01/16/16 dropperette (Restasis) fluticasone propionate 50 1 spray intranasal QDAY ##1 01/16/16 mcg/actuation nasal spray,suspension (Flonase Allergy Relief) metoprolol succinate 25 mg 12.5 mg PO DAILY 12/22/21 12/22/21 tablet,extended release 24 hr Previous Rx's Medication Instructions Recorded apixaban 5 mg tablet (Eliquis) 5 mg PO BID #60 tabs 03/30/22 Allergies Allergy/AdvReac Type Severity Reaction Status Date / Time No Known Drug Allergies Allergy Verified 12/22/21 14:20 Review of Systems Review of Systems Narrative: Complete review of systems is negative other than as noted above. Patient History Medical History HLD (hyperlipidemia) Hyperlipidemia Tachycardia Social History Smoking Status: Unknown if ever smoked Smoking Status: Unknown if ever smoked alcohol intake frequency: holidays/special occasions only Substance Use Type: does not use Exam Narrative Exam Narrative: GENERAL: Alert, cooperative and in no distress. HEAD: Atraumatic. Normocephalic. EYES: Sclera are clear without icterus. Extraocular movements are full. ENT: No rhinorrhea. NECK: Supple. Full range of motion. CARDIOVASCULAR: Irregularly irregular rhythm, tachycardia, no murmur RESPIRATORY: Clear to auscultation. Breath sounds equal bilaterally. No wheezes, rales, or rhonchi. GASTROINTESTINAL: Abdomen soft, non-tender, nondistended. EXTREMITIES: No edema, full range of motion. No obvious trauma. BACK: Normal inspection NEURO: Nonfocal examination, normal speech, normal gait. SKIN: No rash or erythema of visible areas PSYCH: Normally oriented. Normal range of affect. Appropriate behavior Initial Vital Signs Initial Vital Signs: Vital Signs Pulse Rate 147 H 03/30/22 08:34 Respiratory Rate 19 03/30/22 08:34 Blood Pressure 169/86 H 03/30/22 08:34 Pulse Oximetry 98 03/30/22 08:34 Course Orders Ordered: ED Orders 03/30/22 08:30 CBC Auto Diff [Complete Blood Count AUTO DIFF] Stat CMP [Comprehensive Metabolic Panel] Stat Magnesium Stat Troponin I Stat 03/30/22 08:44 XR chest 1V Stat 03/30/22 08:45 COVID19 -Nasal RAPID/Pre-Proc Stat 03/30/22 10:06 EKG-12 Lead Routine Discontinued Medications Diltiazem HCl (Diltiazem 5 Mg/Ml Sdv) 15 mg IV NOW ONE Stop: 03/30/22 08:44 Last Admin: 03/30/22 09:08 Dose: 15 mg Documented By: CRISTY Vital Signs Vital signs: Vital Signs - 8 hr 03/30/22 08:39 03/30/22 09:08 03/30/22 10:11 Temperature 98.1 F Pulse Rate 134 H 131 H Respiratory Rate 22 Blood Pressure 169/86 H 131/79 Pulse Oximetry 99 Oxygen Delivery Method Room Air 03/30/22 08:34 03/30/22 08:34 03/30/22 09:00 Temperature Pulse Rate 147 H Respiratory Rate 19 Blood Pressure 169/86 H 131/79 Pulse Oximetry 98 Oxygen Delivery Method 03/30/22 09:00 03/30/22 09:12 03/30/22 09:12 Temperature Pulse Rate 101 H 107 H Respiratory Rate 19 Blood Pressure 134/78 Pulse Oximetry 95 95 Oxygen Delivery Method Room Air 03/30/22 09:15 03/30/22 09:15 03/30/22 09:20 Temperature Pulse Rate 84 80 Respiratory Rate 15 13 Blood Pressure 107/63 Pulse Oximetry 95 94 Oxygen Delivery Method 03/30/22 09:20 03/30/22 09:25 03/30/22 09:25 Temperature Pulse Rate 80 Respiratory Rate 16 Blood Pressure 119/62 130/68 Pulse Oximetry 94 Oxygen Delivery Method 03/30/22 09:30 03/30/22 09:30 03/30/22 09:35 Temperature Pulse Rate 81 77 Respiratory Rate 15 15 Blood Pressure 137/80 Pulse Oximetry 95 95 Oxygen Delivery Method 03/30/22 09:35 03/30/22 10:00 03/30/22 10:00 Temperature Pulse Rate 79 Respiratory Rate Blood Pressure 148/72 H 121/65 Pulse Oximetry 97 Oxygen Delivery Method 03/30/22 10:05 03/30/22 10:05 03/30/22 10:10 Temperature Pulse Rate 83 Respiratory Rate Blood Pressure 117/83 119/60 Pulse Oximetry 96 Oxygen Delivery Method 03/30/22 10:10 03/30/22 10:15 03/30/22 10:15 Temperature Pulse Rate 78 80 Respiratory Rate 18 16 Blood Pressure 119/57 L Pulse Oximetry 96 95 Oxygen Delivery Method 03/30/22 10:20 03/30/22 10:20 03/30/22 10:25 Temperature Pulse Rate 79 Respiratory Rate 17 Blood Pressure 103/55 L 111/63 Pulse Oximetry 94 Oxygen Delivery Method 03/30/22 10:25 Temperature Pulse Rate 79 Respiratory Rate 11 L Blood Pressure Pulse Oximetry 96 Oxygen Delivery Method Room Air Medical Decision Making Lab Data Result diagrams: 03/30/22 08:30 03/30/22 08:30 Labs: Lab Results 03/30/22 03/30/22 Range/Units 08:30 08:30 WBC 8.0 (4.5-11.0) X10^3/uL RBC 4.67 (4.0-5.2) X10^6/uL Hgb 13.8 (12.0-16.0) g/dL Hct 41.8 (36-46) % MCV 89.6 (80-100) fL MCH 29.6 (26-34) PG MCHC 33.0 (30-36) % RDW 13.6 (11.6-14.8) % Plt Count 228 (150-400) X10^3/uL Neut % (Auto) 75.4 H (50-75) % Lymph % (Auto) 17.4 L (25-40) % [place] % (Auto) 6.4 (3-14) % Eos % (Auto) 0.4 L (2-4) % Baso % (Auto) 0.4 (0-2) % Neut # (Auto) 6000 (3385-5176) /uL Lymph # (Auto) 1400 (0620-8759) /uL [place] # (Auto) 500 (0-900) /uL Eos # (Auto) 0 (0-450) /uL Baso # (Auto) 0 (0-100) /uL Sodium 138 (137-145) mmol/L Potassium 3.8 (3.4-5.1) mmol/L Chloride 104 (98-107) mmol/L Carbon Dioxide 23 (22-32) mmol/L BUN 19 H (7-17) mg/dL Creatinine 0.69 (0.52-1.04) mg/dL Estimated GFR > 60 (>60) mL/min BUN/Creatinine Ratio 27.5 H (6-22) Glucose 167 H (80-110) mg/dL Calcium 8.8 (8.4-10.2) mg/dL Magnesium 2.0 (1.6-2.3) mg/dL Total Bilirubin 0.4 (0.2-1.3) mg/dL AST 32 (14-36) IU/L ALT 33 (<35) IU/L Alkaline Phosphatase 98 (38-126) U/L Troponin I < 0.012 (0.01-0.034) ng/mL Total Protein 7.3 (6.3-8.2) g/dL Albumin 3.9 (3.5-5.0) g/dL Globulin 3.4 (1.7-4.1) g/dL Albumin/Globulin Ratio 1.1 (1.0-2.8) Imaging Data Chest x-ray: Radiologist's Impression: IMPRESSION:? Minimal increased vascularity suggestive of edema. ? ? Dictated by: Uma Schmitz M.D. on 03/30/2022 at 8:59 ? ? Approved by: Uma Schmitz M.D. on 03/30/2022 at 9:00 ? ECG Data Interpretation: ECG obtained at 8:40 a.m. on March 30 shows atrial fibrillation with a ventricular rate of 124. No ischemic changes, a few PVCs, QTC is 445. Repeat EKG from 03/04 reveals atrial fibrillation with a ventricular rate of 75 beats per minute. This is the only abnormality. MDM Narrative Medical decision making narrative: Rate control is achieved. Feeling well. Will discharge on Eliquis. Her CHADS2 Vasc score is 3. Will double her metoprolol succinate up to 50 mg a day. Discharge Plan Departure Patient Disposition: Home Clinical Impression: Atrial fibrillation Instructions: DI for Atrial Fibrillation Activity Restrictions/Additional Instructions: This is a new diagnosis of atrial fibrillation. Increase your metoprolol succinate up to 50 mg daily to help control the rate. Also recommend Eliquis to prevent stroke. Follow-up with your doctor in the coming days for further management and review. Return to the ER for shortness of breath, fainting, chest pain or any other severe symptoms. Prescriptions: New Eliquis 5 mg tablet 5 mg PO BID Qty: 60 0RF No Action ASPIRIN (Aspirin) Q DAY Qty: 0 fluticasone propionate [Flonase Allergy Relief] 9.9 ML spray,suspension 1 spray Intranasal QDAY Qty: 1 cyclosporine [Restasis] 1 EACH dropperette 1 drp OPHTH Q DAY Qty: 0 metoprolol succinate 25 mg tablet extended release 24 hr 12.5 mg PO DAILY Label Comments: take 1/2 tablet by mouth once daily Referrals: Mitch Price MD [Primary Care Provider] -
--- NOTE | 2022-03-30 08:44 | DI.RAD.S_ITS ---
PROCEDURE: XR CHEST 1V INDICATIONS: chest pain TECHNIQUE: One view of the chest was acquired. COMPARISON: [facility], CR, XR CHEST 1V, 03/01/2022, 15:09. FINDINGS: Surgical changes and devices: Right axillary clips. Lungs and pleura: Lungs are clear. No pleural effusions or pneumothorax. Minimal appearance of increased pulmonary vascularity. Mediastinum: Mediastinal contours appear normal. Heart size is mildly enlarged. Bones and chest wall: No suspicious bony lesions. Overlying soft tissues appear unremarkable. IMPRESSION: Minimal increased vascularity suggestive of edema. Dictated by: Uma Schmitz M.D. on 03/30/2022 at 8:59 Approved by: Uma Schmitz M.D. on 03/30/2022 at 9:00
[2022-03-30 08:57] LABS: Add Manual Diff / Slide Review NO; Basophils Absolute Auto 0 /uL (0-100); Basophils Percent Auto 0.4 % (0-2); Eosinophils Absolute Auto 0 /uL (0-450); Eosinophils Percent Auto 0.4 % (2-4); Hematocrit 41.8 % (36-46); Hemoglobin 13.8 g/dL (12.0-16.0); Lymphocytes Absolute Auto 1400 /uL (1100-4500); Lymphocytes Percent Auto 17.4 % (25-40); Mean Corpuscular Hemoglobin 29.6 PG (26-34); Mean Corpuscular Volume 89.6 fL (80-100); Monocytes Absolute Auto 500 /uL (0-900); Monocytes Percent Auto 6.4 % (3-14); Neutrophils Absolute Auto 6000 /uL (1500-7000); Neutrophils Percent Auto 75.4 % (50-75); Platelet Count 228 X10^3/uL (150-400); Red Blood Cell Count 4.67 X10^6/uL (4.0-5.2); Red Cell Distribution Width 13.6 % (11.6-14.8)
[2022-03-30 09:07] LABS: Alanine Aminotransferase 33 IU/L (<35); Albumin 3.9 g/dL (3.5-5.0); Albumin Globulin Ratio 1.1 (1.0-2.8); Alkaline Phosphatase 98 U/L (38-126); Aspartate Aminotransferase 32 IU/L (14-36); BUN Creatinine Ratio 27.5 (6-22); Bilirubin Total 0.4 mg/dL (0.2-1.3); Blood Urea Nitrogen 19 mg/dL (7-17); Calcium 8.8 mg/dL (8.4-10.2); Carbon Dioxide 23 mmol/L (22-32); Chloride 104 mmol/L (98-107); Estimated Glomerular Filt Rate > 60 mL/min (>60); Globulin 3.4 g/dL (1.7-4.1); Glucose 167 mg/dL (80-110); HEMOLYSIS < 15 (0-50); Potassium 3.8 mmol/L (3.4-5.1); Sodium 138 mmol/L (137-145); Total Protein 7.3 g/dL (6.3-8.2)
[2022-03-30] MEDS: dilTIAZem 5 MG/ML SDV 15 MG IV (09:08)
[2022-03-30 09:18] LABS: Troponin I < 0.012 ng/mL (0.01-0.034)
[2022-03-30 11:15] LABS: COVID19 -Nasal RAPID Negative (Negative)
== END 2022-03-30 11:35 | disposition home or self-care (01) ==
PROVIDERS: Emergency Provider Family Medicine Addiction Medicine; PCP Family Medicine
DX: I48.91 Unspecified atrial fibrillation (principal); R06.02 Shortness of breath; Z20.822 Contact with and (suspected) exposure to COVID-19; Z79.899 Other long term (current) drug therapy
CPT/HCPCS: 36415; 71045; 80053; 83735; 84484; 85025; 87635; 93005; 96374; 99284; C9803

== ENCOUNTER → 2022-04-29 12:56 | Outpatient (CLI) | payer MEDICARE, OTHER, SELFPAY ==
--- NOTE | 2022-04-29 12:58 | DI.RAD.S_ITS ---
PROCEDURE: FL BARIUM SWALLOW INDICATIONS: dysphagia, progressing COMPARISON: [facility], CR, XR CHEST 1V, 03/30/2022, 8:45. FINDINGS: Function: There is moderate esophageal dysmotility with disorganized tertiary contractions. No elicited gastroesophageal reflux. There is normal transit of a calibrated barium tablet through the esophagus into the stomach. Morphology: Air-contrast images demonstrate normal mucosal morphology. Single contrast views show no esophageal strictures, extrinsic mass effects, or diverticula. There is a small hiatal hernia. Limited images of the stomach demonstrate normal appearance. IMPRESSION: 1. Moderate esophageal dysmotility. 2. Small hiatal hernia. Dictated by: Umberto Snow M.D. on 04/29/2022 at 14:14 Approved by: Umberto Snow M.D. on 04/29/2022 at 14:15
--- NOTE | 2022-04-29 14:03 | DI.ECHO.S_ITS ---
Interpretation Summary The ejection fraction is estimated to be 55-60%. There is mild mitral regurgitation. Procedure: A two-dimensional transthoracic echocardiogram with color flow and Doppler was performed. The study quality was technically adequate. Comparison is made with the echocardiogram of 10/28/2020. The patient was in sinus rhythm with heart rates between 76-91 bpm during the exam. Left Ventricle: The left ventricular cavity is small. There is normal left ventricular wall thickness. The ejection fraction is estimated to be 55-60%. Left ventricular wall motion is normal. Diastolic function could not be accurately assessed due to unobtainable data. Right Ventricle: The right ventricle is at the upper limits of normal in size. The right ventricular systolic function is normal. Atria: The left atrium is mildly dilated. Right atrial size is normal. There is no Doppler evidence for an interatrial shunt. Mitral Valve: The mitral valve is normal in structure and function. There is mild mitral annular calcification. There is mild mitral regurgitation. Aortic Valve: The aortic valve is trileaflet. The aortic valve opens well. There is no aortic valve stenosis. No aortic regurgitation is present. Tricuspid Valve: The tricuspid valve is normal in structure and function. There is trace tricuspid regurgitation. Pulmonic Valve: The pulmonic valve leaflets are thin and pliable; valve motion is normal. There is trace pulmonic regurgitation. Great Vessels: The aortic root is normal size. The dimensions of the ascending aorta are normal. The IVC is of normal diameter and collapses greater than 50% with a sniff. This suggests a low right atrial pressure of 3 mm Hg. Pericardium/ Pleura There is no pericardial effusion. There is no pleural effusion. MMode/2D Measurements & Calculations LVIDd: 3.8 cm LVOT diam: 2.0 cm LVIDs: 2.7 cm Ao root diam: 3.4 cm FS: 28.9 % asc Aorta Diam: 3.2 cm IVSd: 0.88 cm Ao Arch Diam (Prox Trans): 2.8 cm LVPWd: 0.83 cm LV lu. diameter/BSA (cm/m^2): 2.0 LV sys. diameter/BSA (cm/m^2): 1.4 LA A2 area: 20.6 cm2 RA long axis: 5.6 cm LA A4 area: 22.9 cm2 RA area: 17.4 cm2 LA length (vol): 6.3 cm RA vol: 45.8 ml LA vol: 63.5 ml RA : 24.5 ml/m2 LA vol index: 34.0 ml/m2 IVC diam: 1.4 cm RVD1 (basal): 3.9 cm RVD2 (mid): 2.7 cm TAPSE: 2.1 cm Doppler Measurements & Calculations Ao V2 max: 148.2 cm/sec LVOT Max Antolin: 109.7 cm/sec Ao V2 mean: 100.4 cm/sec LV V1 max P.8 mmHg Ao max P.8 mmHg LV V1 VTI: 23.1 cm Ao mean P.6 mmHg RONALD(I,D): 2.1 cm2 Ao V2 VTI: 33.6 cm RONALD(V,D): 2.3 cm2 sev ratio: 0.69 RONALD indexed to BSA (cm^2/m^2): 1.1 MV E max antolin: 85.8 cm/sec PA V2 max: 81.2 cm/sec MV A max antolin: 91.3 cm/sec PA V2 mean: 56.7 cm/sec MV E/A: 0.94 PA mean P.5 mmHg MV dec time: 0.21 sec PA pr(Accel): 27.6 mmHg MVA(VTI): 3.0 cm2 MV V2 mean: 70.3 cm/sec SV(LVOT): 72.1 ml MV mean P.3 mmHg MV V2 VTI: 24.1 cm Reading Physician:03:08 PM
== END ==
PROVIDERS: PCP Family Medicine; Referring Provider Family Medicine; Visit Provider Family Medicine
DX: I48.91 Unspecified atrial fibrillation (principal); I34.0 Nonrheumatic mitral (valve) insufficiency; R13.10 Dysphagia, unspecified; K22.4 Dyskinesia of esophagus; K44.9 Diaphragmatic hernia without obstruction or gangrene
CPT/HCPCS: 74220; 93306

== ENCOUNTER 2022-05-26 04:04 | Emergency (ER) | payer MEDICARE, OTHER, SELFPAY ==
[2022-05-26] VITALS (12 sets, daily range): BP systolic 114–180; BP diastolic 58–97; PULSE 77–156; RESP 12–26; TEMP 36.6; O2SAT 92–99; BMI 29.1
--- NOTE | 2022-05-26 04:21 | PC.NURSE ---
denies any c\p just heart racing and feeling funny
[2022-05-26 04:31] LABS: Add Manual Diff / Slide Review NO; Basophils Absolute Auto 100 /uL (0-100); Basophils Percent Auto 2.1 % (0-2); Eosinophils Absolute Auto 100 /uL (0-450); Eosinophils Percent Auto 1.1 % (2-4); Hematocrit 40.4 % (36-46); Hemoglobin 13.5 g/dL (12.0-16.0); Lymphocytes Absolute Auto 2400 /uL (1100-4500); Lymphocytes Percent Auto 37.2 % (25-40); Mean Corpuscular HGB Conc 33.5 % (30-36); Mean Corpuscular Hemoglobin 29.9 PG (26-34); Mean Corpuscular Volume 89.3 fL (80-100); Monocytes Absolute Auto 500 /uL (0-900); Neutrophils Absolute Auto 3400 /uL (1500-7000); Neutrophils Percent Auto 52.6 % (50-75); Platelet Count 235 X10^3/uL (150-400); Red Blood Cell Count 4.52 X10^6/uL (4.0-5.2); Red Cell Distribution Width 14.6 % (11.6-14.8); White Blood Cell Count 6.5 X10^3/uL (4.5-11.0)
--- NOTE | 2022-05-26 04:34 | ED_ITS ---
HPI - Chest Pain General Chief Complaint: Chest Pain Stated Complaint: chest pain Time Seen by Provider: 05/26/22 04:10 Source: patient Mode of arrival: Ambulatory History of Present Illness HPI narrative: 81-year-old female nonsmoker with history of atrial fibrillation on Eliquis presents with her in the chief complaint of about 2 hours of a rapid heart rate consistent with AFib along with some anxiety and shortness of breath. She states that she had gone to sleep in her normal state of health and woke up to go to the bathroom and felt a rapid heart rate. She states that she was initially diagnosed with atrial fibrillation about 2 months ago and has been on Eliquis ever since and missed no doses. She denies any fever or chills. She denies any change in medications or missed doses. She denies travel, injury and is otherwise well and free of complaint Related Data Home Medications Medication Instructions Recorded Confirmed cyclosporine 0.05 % eye drops in a 1 drp OPHTH Q DAY ##0 01/16/16 04/16/22 dropperette (Restasis) diltiazem HCl 120 mg 120 mg PO DAILY 04/16/22 04/16/22 capsule,extended release 24 hr omeprazole 40 mg capsule,delayed 40 mg PO DAILY 04/16/22 04/16/22 release simvastatin 5 mg tablet 5 mg PO DAILY 04/16/22 04/16/22 Previous Rx's Medication Instructions Recorded apixaban 5 mg tablet (Eliquis) 5 mg PO BID #60 tabs 03/30/22 Allergies Allergy/AdvReac Type Severity Reaction Status Date / Time No Known Drug Allergies Allergy Verified 04/16/22 10:24 Review of Systems Review of Systems Narrative: GENERAL: Denies chills, fatigue, malaise, fever, sweats. HEENT: Denies sinus pain, ear pain, sore throat, difficulty swallowing, dizziness. RESPIRATORY: See HPI CARDIOVASCULAR: See HPI GASTROINTESTINAL: Denies nausea, vomiting, abdominal pain, diarrhea, constipation, melena. : Denies dysuria, frequency, incontinence, hematuria, urinary retention. MUSCULOSKELETAL: denies weakness, joint pain, or bony pain SKIN: Denies rash, skin lesions, or other NEUROLOGIC: Denies weakness, headache, numbness, change in speech, confusion, seizures, incoordination. PSYCHIATRIC: No concerning psychosocial issues. 12 point review of systems is negative except for those stated above Patient History Medical History HLD (hyperlipidemia) Hyperlipidemia Tachycardia Social History Smoking Status: Unknown if ever smoked Smoking Status: Unknown if ever smoked alcohol intake frequency: holidays/special occasions only Substance Use Type: does not use Exam Narrative Exam Narrative: GENERAL: [81] year old patient appears stated age. Well-developed patient, in mild distress. HEAD: Atraumatic. Normocephalic. EYES: Pupils equal round and reactive. Extraocular motions intact. No scleral icterus. No injection or drainage. ENT: Nose without bleeding, purulent drainage. Throat without erythema, tonsillar hypertrophy or exudate. Airway patent. NECK: Trachea midline. Non tender CARDIOVASCULAR: Tachycardic and irregular rhythm without murmurs, gallops, or rubs. RESPIRATORY: Clear to auscultation. Breath sounds equal bilaterally. No wheezes, rales, or rhonchi. GASTROINTESTINAL: Abdomen soft, non-tender, nondistended. EXTREMITIES: No edema or joint tenderness. BACK: Nontender without deformity or crepitance. No flank tenderness. NEURO: AOx3. SKIN: No rash or erythema of visible areas Initial Vital Signs Initial Vital Signs: Vital Signs Pulse Rate 156 H 05/26/22 04:10 Respiratory Rate 17 05/26/22 04:10 Pulse Oximetry 97 05/26/22 04:10 Procedures Cardioversion Consent Signed: Yes Indication: Rapid AFib Stability: Stable Number of attempts (shocks): 1 Joules used: 120 Cardiac rhythm post-cardioversion: Normal sinus Procedural Sedation Consent signed: Yes Time out performed: Yes Indication: cardioversion ASA Class: III Mallampati Airway Classification: Class II Preparation: sales executive applied, pulse oximeter, capnometry used, supplemental O2 applied, suction/airway equipment at bedside and IV secured IV Propofol dose (mg): 60 Intraservice time/total sedation time (min): 10 ED Sedation Level: Moderate (Concious) Patient Tolerated Procedure: Well Complications: none Course Orders Ordered: ED Orders 05/26/22 04:15 EKG-12 Lead Stat 05/26/22 04:20 Basic Metabolic Panel Stat Complete Blood Count AUTO DIFF Stat Magnesium Stat Discontinued Medications Propofol (Propofol 200 Mg/20 Ml Vial) 100 mg IV NOW ONE Stop: 05/26/22 04:16 Last Admin: 05/26/22 04:58 Dose: 60 mg Documented By: ELIAZAR Vital Signs Vital signs: Vital Signs - 8 hr 05/26/22 04:16 05/26/22 04:26 05/26/22 04:39 Temperature 97.9 F Pulse Rate 154 H 119 H Respiratory Rate 22 23 Blood Pressure 180/97 H 140/65 Pulse Oximetry 96 99 Oxygen Delivery Method Room Air 05/26/22 04:10 05/26/22 04:30 05/26/22 04:30 Temperature Pulse Rate 156 H 141 H Respiratory Rate 17 22 Blood Pressure 140/65 Pulse Oximetry 97 98 Oxygen Delivery Method 05/26/22 04:45 05/26/22 04:48 05/26/22 04:48 Temperature Pulse Rate 114 H 88 87 Respiratory Rate 12 14 13 Blood Pressure 130/64 127/60 Pulse Oximetry 96 92 93 Oxygen Delivery Method 05/26/22 04:50 Temperature Pulse Rate 84 Respiratory Rate 14 Blood Pressure 114/59 L Pulse Oximetry 93 Oxygen Delivery Method MDM - Chest Pain Lab Data Result diagrams: 05/26/22 04:20 05/26/22 04:20 Labs: Lab Results 05/26/22 05/26/22 Range/Units 04:20 04:20 WBC 6.5 (4.5-11.0) X10^3/uL RBC 4.52 (4.0-5.2) X10^6/uL Hgb 13.5 (12.0-16.0) g/dL Hct 40.4 (36-46) % MCV 89.3 (80-100) fL MCH 29.9 (26-34) PG MCHC 33.5 (30-36) % RDW 14.6 (11.6-14.8) % Plt Count 235 (150-400) X10^3/uL Neut % (Auto) 52.6 (50-75) % Lymph % (Auto) 37.2 (25-40) % [place] % (Auto) 7.0 (3-14) % Eos % (Auto) 1.1 L (2-4) % Baso % (Auto) 2.1 H (0-2) % Neut # (Auto) 3400 (1336-5187) /uL Lymph # (Auto) 2400 (9907-1411) /uL [place] # (Auto) 500 (0-900) /uL Eos # (Auto) 100 (0-450) /uL Baso # (Auto) 100 (0-100) /uL Sodium 141 (137-145) mmol/L Potassium 3.5 (3.4-5.1) mmol/L Chloride 105 (98-107) mmol/L Carbon Dioxide 27 (22-32) mmol/L BUN 16 (7-17) mg/dL Creatinine 0.73 (0.52-1.04) mg/dL Estimated GFR > 60 (>60) mL/min BUN/Creatinine Ratio 21.9 (6-22) Glucose 131 H (80-110) mg/dL Calcium 9.0 (8.4-10.2) mg/dL Magnesium 2.0 (1.6-2.3) mg/dL Point of Care Testing Test Results Not applicable Discharge Plan Departure Patient Disposition: Home Clinical Impression: Atrial fibrillation Qualifiers: Atrial fibrillation type: paroxysmal Qualified Code(s): I48.0 - Paroxysmal atrial fibrillation Instructions: Atrial Fibrillation Activity Restrictions/Additional Instructions: *You have been diagnosed with [rapid atrial fibrillation with procedural sedation and electrocardioversion] *What to do: *Please continue to take your regular medications as directed. *Please follow up with your primary care provider in 2-3 days, call for an appointment. Let them know you were seen in the Emergency Department and that we ask that you be seen in follow up. We will electronically transmit a record of today's note if your PCP is in our system *If you do not have a primary care provider please contact the [facility] Resource line at [phone]. They will ask some questions about your medical history and help get you set up with a doctor in the community. *Return to Emergency Department if you should have any new, worsening or concerning symptoms, such as [fever greater than 101 F, shaking chills, worsening pain, persistent vomiting or other bothersome symptoms] Prescriptions: No Action cyclosporine [Restasis] 1 EACH dropperette 1 drp OPHTH Q DAY Qty: 0 diltiazem HCl 120 mg capsule,extended release 24hr 120 mg PO DAILY omeprazole 40 mg capsule,delayed release(DR/EC) 40 mg PO DAILY simvastatin 5 mg tablet 5 mg PO DAILY Eliquis 5 mg tablet 5 mg PO BID Qty: 60 0RF Referrals: Mitch Price MD [Primary Care Provider] -
[2022-05-26 04:41] LABS: BUN Creatinine Ratio 21.9 (6-22); Blood Urea Nitrogen 16 mg/dL (7-17); Carbon Dioxide 27 mmol/L (22-32); Chloride 105 mmol/L (98-107); Estimated Glomerular Filt Rate > 60 mL/min (>60); Glucose 131 mg/dL (80-110); HEMOLYSIS < 15 (0-50); Potassium 3.5 mmol/L (3.4-5.1); Sodium 141 mmol/L (137-145)
[2022-05-26] MEDS: propofoL 200 MG/20 ML VIAL 100 MG IV (04:58)
== END 2022-05-26 05:40 | disposition home or self-care (01) ==
PROVIDERS: Emergency Provider Emergency Medicine; PCP Family Medicine
DX: I48.0 Paroxysmal atrial fibrillation (principal); Z79.01 Long term (current) use of anticoagulants; Z79.899 Other long term (current) drug therapy
CPT/HCPCS: 36415; 80048; 83735; 85025; 92960; 93005; 99152; 99284; 99285; J2704

== ENCOUNTER 2022-07-20 08:03 | Emergency (ER) | payer MEDICARE, OTHER, SELFPAY ==
[2022-07-20] VITALS (24 sets, daily range): BP systolic 118–158; BP diastolic 58–94; PULSE 75–146; RESP 14–25; TEMP 36.9; O2SAT 95–99; BMI 29.1
--- NOTE | 2022-07-20 08:13 | ED.GENADULT ---
HPI - General Adult General Chief complaint: Arrhythmia/Palpitations Stated complaint: in AFIB Time Seen by Provider: 07/20/22 08:05 History of Present Illness HPI narrative: 81-year-old female nonsmoker with history of atrial fibrillation on Eliquis presents with her in the chief complaint of about 2 days of a rapid heart rate consistent with AFib along with some anxiety and shortness of breath. She states that she was hoping that her AFib would resolve but finally realized that it was time to be seen. She denies any change in her medications and very strongly states that she is been taking her Eliquis without missing a single dose and quite some time. I saw her myself for the same in the end of April and performed a cardioversion. 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 She does feel dizzy and a bit fatigued. She denies any specific chest pain. She is had no fever, chills, nausea or vomiting Related Data Home Medications Medication Instructions Recorded Confirmed cyclosporine 0.05 % eye drops in a 1 drp OPHTH Q DAY ##0 01/16/16 04/16/22 dropperette (Restasis) diltiazem HCl 120 mg 120 mg PO DAILY 04/16/22 04/16/22 capsule,extended release 24 hr omeprazole 40 mg capsule,delayed 40 mg PO DAILY 04/16/22 04/16/22 release simvastatin 5 mg tablet 5 mg PO DAILY 04/16/22 04/16/22 Previous Rx's Medication Instructions Recorded apixaban 5 mg tablet (Eliquis) 5 mg PO BID #60 tabs 03/30/22 Allergies Allergy/AdvReac Type Severity Reaction Status Date / Time No Known Drug Allergies Allergy Verified 04/16/22 10:24 Review of Systems Review of Systems Narrative: GENERAL: Denies chills, fatigue, malaise, fever, sweats. HEENT: Denies sinus pain, ear pain, sore throat, difficulty swallowing, dizziness. RESPIRATORY: See HPI CARDIOVASCULAR: See HPI GASTROINTESTINAL: Denies nausea, vomiting, abdominal pain, diarrhea, constipation, melena. : Denies dysuria, frequency, incontinence, hematuria, urinary retention. MUSCULOSKELETAL: denies weakness, joint pain, or bony pain SKIN: Denies rash, skin lesions, or other NEUROLOGIC: Denies weakness, headache, numbness, change in speech, confusion, seizures, incoordination. PSYCHIATRIC: No concerning psychosocial issues. 12 point review of systems is negative except for those stated above Patient History Medical History HLD (hyperlipidemia) Hyperlipidemia Tachycardia Social History Smoking Status: Unknown if ever smoked Smoking Status: Unknown if ever smoked alcohol intake frequency: holidays/special occasions only Substance Use Type: does not use Exam Narrative Exam Narrative: GENERAL: [81] year old patient appears stated age. Well-developed patient, in mild distress. HEAD: Atraumatic. Normocephalic. EYES: Pupils equal round and reactive. Extraocular motions intact. No scleral icterus. No injection or drainage. ENT: Nose without bleeding, purulent drainage. Throat without erythema, tonsillar hypertrophy or exudate. Airway patent. NECK: Trachea midline. Non tender CARDIOVASCULAR: Tachycardic and irregular rhythm without murmurs, gallops, or rubs. RESPIRATORY: Clear to auscultation. Breath sounds equal bilaterally. No wheezes, rales, or rhonchi. GASTROINTESTINAL: Abdomen soft, non-tender, nondistended. EXTREMITIES: No edema or joint tenderness. BACK: Nontender without deformity or crepitance. No flank tenderness. NEURO: AOx3. SKIN: No rash or erythema of visible areas Initial Vital Signs Initial Vital Signs: Vital Signs Temperature 98.4 F 07/20/22 08:11 Pulse Rate 146 H 07/20/22 08:11 Respiratory Rate 16 07/20/22 08:11 Blood Pressure 137/94 H 07/20/22 08:11 Pulse Oximetry 98 07/20/22 08:11 Oxygen Delivery Method 07/20/22 08:11 Procedures Cardioversion Consent Signed: Yes Indication: Rapid AFib Stability: Stable Number of attempts (shocks): 1 Joules used: 120 Cardiac rhythm post-cardioversion: NSR Procedural Sedation Consent signed: Yes Time out performed: Yes Indication: cardioversion ASA Class: II Mallampati Airway Classification: Class II Preparation: cap jewel plate assembler applied, pulse oximeter, capnometry used, supplemental O2 applied, suction/airway equipment at bedside and IV secured IV Propofol dose (mg): 50 Intraservice time/total sedation time (min): 12 ED Sedation Level: Moderate (Concious) Patient Tolerated Procedure: Well Complications: none Course Orders Ordered: Discontinued Medications Sodium Chloride (Normal Saline 0.9%) 1,000 mls @ 150 mls/hr IV CONT CHECO Last Infusion: 07/20/22 09:54 Dose: 0 mls/hr Documented By: Admin: 07/20/22 09:00 Dose: 1,000 mls/hr Documented By: GALILEO Propofol (Propofol 200 Mg/20 Ml Vial) 80 mg 1 mg/kg (80 mg) IV NOW ONE Stop: 07/20/22 08:15 Last Admin: 07/20/22 09:00 Dose: 50 mg Documented By: GALILEO Vital Signs Vital signs: Vital Signs - 8 hr 07/20/22 08:11 07/20/22 08:41 07/20/22 08:41 Temperature 98.4 F Pulse Rate 146 H 110 H Respiratory Rate 16 22 Blood Pressure 137/94 H 143/73 H Pulse Oximetry 98 99 Oxygen Delivery Method Room Air 07/20/22 08:42 07/20/22 08:42 07/20/22 08:45 Temperature Pulse Rate 108 H 100 H Respiratory Rate 20 16 Blood Pressure 142/71 H Pulse Oximetry 99 98 Oxygen Delivery Method 07/20/22 08:45 07/20/22 08:48 07/20/22 08:48 Temperature Pulse Rate 103 H Respiratory Rate 19 Blood Pressure 138/69 131/63 Pulse Oximetry 98 Oxygen Delivery Method 07/20/22 08:51 07/20/22 08:51 07/20/22 08:54 Temperature Pulse Rate 102 H 104 H Respiratory Rate 16 17 Blood Pressure 127/61 Pulse Oximetry 98 98 Oxygen Delivery Method 07/20/22 08:54 07/20/22 08:57 07/20/22 08:57 Temperature Pulse Rate 104 H Respiratory Rate 22 Blood Pressure 131/60 133/85 Pulse Oximetry 97 Oxygen Delivery Method 07/20/22 09:00 07/20/22 09:00 07/20/22 09:03 Temperature Pulse Rate 100 H 82 Respiratory Rate 20 14 Blood Pressure 158/74 H Pulse Oximetry 98 Oxygen Delivery Method 07/20/22 09:03 07/20/22 09:05 07/20/22 09:06 Temperature Pulse Rate 80 Respiratory Rate 15 Blood Pressure 128/67 121/58 L Pulse Oximetry 95 Oxygen Delivery Method 07/20/22 09:06 07/20/22 09:10 07/20/22 09:16 Temperature Pulse Rate 81 78 96 H Respiratory Rate 25 H 16 Blood Pressure 118/58 L Pulse Oximetry 95 97 Oxygen Delivery Method 07/20/22 09:09 07/20/22 09:09 07/20/22 09:10 Temperature Pulse Rate 80 80 Respiratory Rate 17 16 Blood Pressure 118/58 L Pulse Oximetry 97 97 Oxygen Delivery Method 07/20/22 09:12 07/20/22 09:12 07/20/22 09:15 Temperature Pulse Rate 79 Respiratory Rate 15 Blood Pressure 119/62 121/69 Pulse Oximetry 98 Oxygen Delivery Method 07/20/22 09:15 07/20/22 09:18 07/20/22 09:18 Temperature Pulse Rate 79 77 Respiratory Rate 16 15 Blood Pressure 126/68 Pulse Oximetry 97 96 Oxygen Delivery Method 07/20/22 09:20 07/20/22 09:21 07/20/22 09:21 Temperature Pulse Rate 79 78 Respiratory Rate 15 15 Blood Pressure 126/71 Pulse Oximetry 96 96 Oxygen Delivery Method 07/20/22 09:24 07/20/22 09:24 07/20/22 09:25 Temperature Pulse Rate 75 78 Respiratory Rate 17 15 Blood Pressure 124/71 Pulse Oximetry 96 98 Oxygen Delivery Method 07/20/22 09:27 07/20/22 09:27 Temperature Pulse Rate 80 Respiratory Rate 16 Blood Pressure 125/76 Pulse Oximetry 96 Oxygen Delivery Method Medical Decision Making Lab Data 07/20/22 08:30 07/20/22 08:30 Labs: Lab Results 07/20/22 07/20/22 Range/Units 08:30 08:30 WBC 7.4 (4.5-11.0) X10^3/uL RBC 4.66 (4.0-5.2) X10^6/uL Hgb 14.1 (12.0-16.0) g/dL Hct 42.5 (36-46) % MCV 91.2 (80-100) fL MCH 30.3 (26-34) PG MCHC 33.3 (30-36) % RDW 14.3 (11.6-14.8) % Plt Count 221 (150-400) X10^3/uL Neut % (Auto) 72.1 (50-75) % Lymph % (Auto) 20.5 L (25-40) % [place] % (Auto) 6.4 (3-14) % Eos % (Auto) 0.7 L (2-4) % Baso % (Auto) 0.3 (0-2) % Neut # (Auto) 5400 (5059-6511) /uL Lymph # (Auto) 1500 (7095-9739) /uL [place] # (Auto) 500 (0-900) /uL Eos # (Auto) 0 (0-450) /uL Baso # (Auto) 0 (0-100) /uL Sodium 139 (137-145) mmol/L Potassium 4.5 (3.4-5.1) mmol/L Chloride 104 (98-107) mmol/L Carbon Dioxide 25 (22-32) mmol/L BUN 16 (7-17) mg/dL Creatinine 0.62 (0.52-1.04) mg/dL Estimated GFR > 60 (>60) mL/min BUN/Creatinine Ratio 25.8 H (6-22) Glucose 148 H (80-110) mg/dL Calcium 8.8 (8.4-10.2) mg/dL Total Bilirubin 1.0 (0.2-1.3) mg/dL AST 42 H (14-36) IU/L ALT 29 (<35) IU/L Alkaline Phosphatase 70 (38-126) U/L Total Creatine Kinase 41 (30-135) U/L CK-MB (CK-2) TNP CK-MB (CK-2) Rel Index TNP Troponin I < 0.012 (0.01-0.034) ng/mL Total Protein 7.4 (6.3-8.2) g/dL Albumin 4.0 (3.5-5.0) g/dL Globulin 3.4 (1.7-4.1) g/dL Albumin/Globulin Ratio 1.2 (1.0-2.8) Lipase 80 (23-300) U/L Point of Care Testing Test Results Not applicable Point of care testing: Point of Care Testing Test Results Not applicable ECG Data Interpretation: [0816] EKG is rapid atrial fibrillation without ischemic change as his ST depression or elevation MDM Narrative Medical decision making narrative: CC: 81-year-old female with symptomatic atrial fibrillation for 2 days, on anticoagulation Complicating co-morbidities: Age, history of AFib, anticoagulation, GERD, hyperlipidemia Data collected from: Patient Medical records reviewed: Prior notes in EMR Differential considered, but not limited to: AFib, electrolyte abnormality versus other Exam documented above, pertinent findings include: Tachycardic and irregular, no increased work of breathing Lab Test results independently reviewed as above. Pertinent findings: No significant abnormality requiring intervention Independently reviewed EKG as above Imaging studies independently reviewed: No acute process Treatments: Propofol, cardioversion Re-evaluations: Patient returns to normal sinus rhythm Discussion: 81-year-old female with history of paroxysmal atrial fibrillation on anticoagulation presents with 2 days of AFib in the 140s with associated symptoms. She is appropriate for cardioversion, tolerates procedure well, returned to normal sinus rhythm and symptoms have resolved Disposition: see below, along with detailed discharge instructions that have been reviewed with patient as well as indications for ED re-evaluation and additional outpatient follow up Discharge Plan Departure Patient Disposition: Home Clinical Impression: Atrial fibrillation Instructions: DI for Atrial Fibrillation Activity Restrictions/Additional Instructions: *You have been diagnosed with [rapid atrial fibrillation with successful cardioversion] *What to do: *Please continue to take your regular medications as directed. *Please follow up with your primary care provider in 2-3 days, call for an appointment. Let them know you were seen in the Emergency Department and that we ask that you be seen in follow up. We will electronically transmit a record of today's note if your PCP is in our system *Return to Emergency Department if you should have any new, worsening or concerning symptoms, such as [fever greater than 101 F, shaking chills, worsening pain, persistent vomiting or other bothersome symptoms] Prescriptions: No Action cyclosporine [Restasis] 1 EACH dropperette 1 drp OPHTH Q DAY Qty: 0 diltiazem HCl 120 mg capsule,extended release 24hr 120 mg PO DAILY omeprazole 40 mg capsule,delayed release(DR/EC) 40 mg PO DAILY simvastatin 5 mg tablet 5 mg PO DAILY Eliquis 5 mg tablet 5 mg PO BID Qty: 60 0RF Referrals: Mitch Price MD [Primary Care Provider] - Stand Alone Forms: Patient Portal/API
--- NOTE | 2022-07-20 08:14 | DI.RAD.S_ITS ---
PROCEDURE: XR CHEST 1V INDICATIONS: chest pain TECHNIQUE: One view of the chest was acquired. COMPARISON: [facility], CR, XR CHEST 1V, 03/30/2022, 8:45. FINDINGS: Surgical changes and devices: Surgical clips are seen in right axilla. Lungs and pleura: Lungs are clear. No pleural effusions or pneumothorax. Mediastinum: Mediastinal contours appear normal. Heart size is normal. Bones and chest wall: No suspicious bony lesions. Overlying soft tissues appear unremarkable. IMPRESSION: No acute cardiopulmonary pathology. Dictated by: Ayden Shaw M.D. on 07/20/2022 at 8:36 Approved by: Ayden Shaw M.D. on 07/20/2022 at 8:37
[2022-07-20 08:35] LABS: Add Manual Diff / Slide Review NO; Basophils Absolute Auto 0 /uL (0-100); Basophils Percent Auto 0.3 % (0-2); Eosinophils Absolute Auto 0 /uL (0-450); Eosinophils Percent Auto 0.7 % (2-4); Hematocrit 42.5 % (36-46); Hemoglobin 14.1 g/dL (12.0-16.0); Lymphocytes Absolute Auto 1500 /uL (1100-4500); Lymphocytes Percent Auto 20.5 % (25-40); Mean Corpuscular HGB Conc 33.3 % (30-36); Mean Corpuscular Hemoglobin 30.3 PG (26-34); Mean Corpuscular Volume 91.2 fL (80-100); Monocytes Absolute Auto 500 /uL (0-900); Monocytes Percent Auto 6.4 % (3-14); Neutrophils Absolute Auto 5400 /uL (1500-7000); Neutrophils Percent Auto 72.1 % (50-75); Platelet Count 221 X10^3/uL (150-400); Red Blood Cell Count 4.66 X10^6/uL (4.0-5.2); Red Cell Distribution Width 14.3 % (11.6-14.8); White Blood Cell Count 7.4 X10^3/uL (4.5-11.0)
[2022-07-20 08:50] LABS: Alanine Aminotransferase 29 IU/L (<35); Albumin Globulin Ratio 1.2 (1.0-2.8); Alkaline Phosphatase 70 U/L (38-126); Aspartate Aminotransferase 42 IU/L (14-36); BUN Creatinine Ratio 25.8 (6-22); Blood Urea Nitrogen 16 mg/dL (7-17); Calcium 8.8 mg/dL (8.4-10.2); Carbon Dioxide 25 mmol/L (22-32); Chloride 104 mmol/L (98-107); Creatine Kinase 41 U/L (30-135); Estimated Glomerular Filt Rate > 60 mL/min (>60); Globulin 3.4 g/dL (1.7-4.1); Glucose 148 mg/dL (80-110); HEMOLYSIS 96 (0-50); Lipase 80 U/L (23-300); Potassium 4.5 mmol/L (3.4-5.1); Sodium 139 mmol/L (137-145); Total Protein 7.4 g/dL (6.3-8.2)
[2022-07-20] MEDS: SODIUM CHLORIDE 0.9% 1,000 ML 1000 ML IV (09:00)
[2022-07-20] MEDS: propofoL 200 MG/20 ML VIAL 80 MG IV (09:00)
[2022-07-20 09:02] LABS: Troponin I < 0.012 ng/mL (0.01-0.034)
== END 2022-07-20 09:55 | disposition home or self-care (01) ==
PROVIDERS: Emergency Provider Emergency Medicine; PCP Family Medicine
DX: I48.20 Chronic atrial fibrillation, unspecified (principal); Z79.01 Long term (current) use of anticoagulants
CPT/HCPCS: 36415; 71045; 80053; 82550; 83690; 84484; 85025; 92960; 93005; 96360; 99152; 99285; 99291; J2704

== ENCOUNTER → 2022-07-30 08:39 | Outpatient (CLI) | payer MEDICARE, OTHER, SELFPAY ==
--- NOTE | 2022-07-30 | DI.NM.S_ITS ---
PROCEDURE: NM DEREK PERF SPECT R&S PHARM Rest and pharmacological stress myocardial perfusion SPECT with gated imaging and ejection fraction RADIOPHARMACEUTICAL: 12.2 mCi Tc-99m tetrafosmin IV at rest and 25.7 mCi Tc-99m tetrafosmin IV at peak effect of pharmacological stress. [id number] was performed. INDICATIONS: Unspecified atrial fibrillation TECHNIQUE: Radiopharmaceutical was injected at peak stress test, and also at rest. SPECT images were obtained. SPECT myocardial perfusion images were displayed in short axis, horizontal long axis, and vertical long axis views. Gated images were reviewed using [employer] software. COMPARISON: None. CARDIAC STRESS: A pharmacologic stress test was performed under the supervision of an attending staff, using an infusion of lexican 0.4mg IV X1. Hemodynamic data: There is normal blood pressure and heart rate response to pharmacologic stress. Symptoms: The patient denied anginal chest pain. Aminophylline: none EKG: No diagnostic changes of ischemia; no ectopy. FINDINGS: Raw data: There is good myocardial uptake of radiotracer. No significant motion artifacts. Left ventricle function: Gated images demonstrate normal left ventricular wall thickening. No segmental wall motion abnormalities. No transient ischemic dilation; TID is .09 (normal less than 1.3). Left ventricle resting end diastolic volume is 68mL. Left ventricle stress ejection fraction is 74%; normal range is above 45%. Myocardial perfusion: There is normal distribution of activity in the right and left ventricular myocardium. No fixed or reversible perfusion defects. IMPRESSION: Low risk, normal pharmaceutical nuclear stress test 1) No perfusion evidence of ischemia or infarction. 2) Normal left ventricular size, wall motion, and systolic function (EF post stress 74%). 3) No ST changes with lexiscan. 4) No angina during the study. 5) Compared to the nuclear stress test done 11/11/2020, no significant change. Dictated by: Tariq Gonzalez MD on 08/02/2022 at 13:07 Approved by: Tariq Gonzalez MD on 08/02/2022 at 13:09
== END ==
PROVIDERS: PCP Family Medicine; Referring Provider Internal Medicine Cardiovascular Disease; Visit Provider Internal Medicine Cardiovascular Disease
DX: I48.91 Unspecified atrial fibrillation (principal)
CPT/HCPCS: 78452; 93017; A9502; J2785

== ENCOUNTER → 2022-11-15 11:48 | Outpatient (CLI) | payer MEDICARE, OTHER, SELFPAY ==
--- NOTE | 2022-11-15 | DI.MG.S_ITS ---
BILATERAL DIGITAL SCREENING MAMMOGRAM 3D/2D WITH CAD: 11/15/2022 CLINICAL: Routine screening. Personal history of right breast cancer. Family history of breast cancer. Comparison is made to exams dated: 11/13/2021 mammogram, 11/03/2020 mammogram, 11/02/2019 mammogram, and 08/23/2018 mammogram - [facility]. There are scattered areas of fibroglandular density in both breasts (category b / 25%-50% glandular tissue). Current study was also evaluated with a Computer Aided Detection (CAD) system. There are benign calcifications in the right breast. There also are benign vascular calcifications in the left breast. Additionally, there are benign post operative findings in the right breast. No significant masses, calcifications, or other findings are seen in either breast. There has been no significant interval change. IMPRESSION: BENIGN There is no mammographic evidence of malignancy. A 1 year screening mammogram is recommended. This exam was interpreted at Station ID: [id number]. NOTE: For mammograms, a report in lay terms will be sent to the patient. Approximately 15% of breast malignancies will not be visualized mammographically. In the management of a palpable breast mass, a negative mammogram must not discourage biopsy of a clinically suspicious lesion. Electronically Signed By: Osman biswas/isabelle:11/15/2022 13:51:04 letter sent: Normal Exam ACR BI-RADS Category 2: Benign Finding(s) 3342F
== END ==
PROVIDERS: PCP Family Medicine; Referring Provider Family Medicine; Visit Provider Family Medicine
DX: Z12.31 Encounter for screening mammogram for malignant neoplasm of breast (principal); Z85.3 Personal history of malignant neoplasm of breast; Z80.3 Family history of malignant neoplasm of breast
CPT/HCPCS: 77063; 77067

== ENCOUNTER → 2023-05-11 08:45 | Outpatient (CLI) | payer MEDICARE, OTHER, SELFPAY ==
--- NOTE | 2023-05-11 | DI.NM.S_ITS ---
PROCEDURE: NM DEREK PERF SPECT REST & STR Rest and exercise myocardial perfusion SPECT with gated imaging and ejection fraction RADIOPHARMACEUTICAL: 9.0 mCi Tc-99m sestamibi IV at rest and 26.0 mCi Tc-99m sestamibi IV at peak exercise. A [id number] was performed. INDICATIONS: SHORTNESS OF BREATH TECHNIQUE: Radiopharmaceutical was injected at peak stress test, and also at rest. SPECT images were obtained. SPECT myocardial perfusion images were displayed in short axis, horizontal long axis, and vertical long axis views. Gated images were reviewed using [employer] software. COMPARISON: None. CARDIAC STRESS: A standard Paul treadmill exercise tolerance test was performed by the patient under the supervision of an attending staff. The patient exercised for 5 minutes and 01 seconds; 7.0 METS; functional aerobic impairment (CRISTINA) is -5%. Hemodynamic data: There is normal blood pressure and heart rate response to exercise stress. Patient achieved 114% of maximum predicted heart rate at peak exercise. Maximum blood pressure 170/90. Symptoms: Patient denied chest pain during exercise. EKG: No diagnostic EKG changes of ischemia; no ectopy. FINDINGS: Raw data: There is good myocardial labeling by radiotracer. No significant motion artifacts. Qvtk-wa-echrm ratio is 0.36 (normal is less than 0.38 for sestamibi tracer, and less than 0.50 for thallium tracer). Left ventricle function: Gated images demonstrate normal left ventricle wall thickening. No segmental wall motion abnormality. No transient ischemic dilation; TID is 1.17 (normal less than 1.3). The left ventricle resting end-diastolic volume is 66 mL. Left ventricle stress ejection fraction is >75%; normal values are above 45%. Myocardial perfusion: There is normal distribution of activity in the left and right ventricular myocardium. No fixed or reversible perfusion defects. IMPRESSION: Low risk study. No evidence of exercise-induced ischemia on ECG or SPECT imaging. Small LV cavity size with hyperdynamic function. Normal hemodynamic response to exercise. Fair exercise capacity. Dictated by: Martha Briggs D.O. on 05/11/2023 at 16:22 Approved by: Martha Briggs D.O. on 05/11/2023 at 16:25
== END ==
PROVIDERS: PCP Family Medicine; Referring Provider Internal Medicine Cardiovascular Disease; Visit Provider Internal Medicine Cardiovascular Disease
DX: R06.02 Shortness of breath (principal)
CPT/HCPCS: 78452; 93017; A9502

== ENCOUNTER → 2023-05-19 | Outpatient (CLI) | payer MEDICARE, OTHER, SELFPAY ==
--- NOTE | 2023-05-19 | DI.ECHO.S_ITS ---
[facility] +---------+ : : [address] [place] : : : : [id number] : : : : Phone: [phone] Echocardiogram Report + + :Name: FAUSTO BUCIO Study Date: 05/19/2023 Height: 65 in : :[facility] ReadingLocation: Weight: 175 lb : : Gender: Female BSA: 1.9 m2 : :: 1940 Age: 82 yrs BP: 119/76 mmHg: :Reason For Study: SHORTNESS OF BREATH : :Ordering Physician: LARON, : :MARTHA Benitez Performed By: Jazzmine Henderson : :Referring: MARTHA BRIGGS : + + Interpretation Summary The ejection fraction is estimated to be 60-65%. Diastolic function could not be accurately assessed due to contradictory data. The left atrium is mildly dilated. The right ventricle is normal in size and function. There is mild mitral regurgitation. There is trace aortic regurgitation. Pulmonary artery pressures cannot be estimated because of the lack of a measurable TR jet velocity but the IVC suggests a CVP of around 3 mmHg. Compared to the prior study dated 04/29/2022, no significant change. Procedure: A two-dimensional transthoracic echocardiogram with color flow and Doppler was performed. The study quality was technically adequate. Comparison is made with the echocardiogram of 04/29/2022. The patient was in sinus rhythm with heart rates between 63-80 bpm during the exam. Left Ventricle: The left ventricle is normal in size and wall thickness. The ejection fraction is estimated to be 60-65%. Diastolic function could not be accurately assessed due to contradictory data. Right Ventricle: The right ventricle is normal in size and function. Atria: The left atrium is mildly dilated. Right atrial size is normal. There is no Doppler evidence for an interatrial shunt. Mitral Valve: There is moderate mitral annular calcification. The mitral valve leaflets appear normal. There is no evidence of stenosis, fluttering, or prolapse. There is mild mitral regurgitation. Aortic Valve: The aortic valve is trileaflet. The aortic valve opens well. There is no aortic valve stenosis. There is trace aortic regurgitation. Tricuspid Valve: The tricuspid valve is normal in structure and function. There is trace tricuspid regurgitation. Pulmonary artery pressures cannot be estimated because of the lack of a measurable TR jet velocity but the IVC suggests a CVP of around 3 mmHg. Pulmonic Valve: The pulmonic valve leaflets are thin and pliable; valve motion is normal. There is trace pulmonic regurgitation. Great Vessels: The aortic root is normal size. The dimensions of the ascending aorta are normal. The IVC is of normal diameter and collapses greater than 50% with a sniff. This suggests a low right atrial pressure of 3 mm Hg. Pericardium/ Pleura There is no pericardial effusion. There is no pleural effusion. MMode/2D Measurements & Calculations LVIDd: 3.4 cm LVOT diam: 2.0 cm LVIDs: 2.3 cm Ao root diam: 3.0 cm FS: 32.2 % asc Aorta Diam: 2.9 cm IVSd: 0.79 cm Ao Arch Diam (Prox Trans): 2.8 cm LVPWd: 0.82 cm LV lu. diameter/BSA (cm/m^2): 1.8 LV sys. diameter/BSA (cm/m^2): 1.2 LA A2 area: 22.3 cm2 RA long axis: 5.2 cm LA A4 area: 18.5 cm2 RA area: 15.0 cm2 LA length (vol): 5.0 cm RA vol: 37.1 ml LA vol: 69.7 ml RA : 19.8 ml/m2 LA vol index: 37.3 ml/m2 IVC diam: 1.6 cm RVD1 (basal): 3.0 cm RVD2 (mid): 2.4 cm TAPSE: 2.0 cm Doppler Measurements & Calculations Ao V2 max: 124.0 cm/sec LVOT Max Antolin: 94.9 cm/sec Ao V2 mean: 87.5 cm/sec LV V1 max P.6 mmHg Ao max P.2 mmHg LV V1 VTI: 21.7 cm Ao mean P.4 mmHg RONALD(I,D): 2.5 cm2 Ao V2 VTI: 28.6 cm RONALD(V,D): 2.5 cm2 sev ratio: 0.76 RONALD indexed to BSA (cm^2/m^2): 1.3 MV E max antolin: 89.7 cm/sec PA V2 max: 63.2 cm/sec MV A max antolin: 70.0 cm/sec PA V2 mean: 45.8 cm/sec MV E/A: 1.3 PA mean P.93 mmHg Med Peak E' Antolin: 7.8 cm/sec PA pr(Accel): 19.1 mmHg E/E' med: 11.5 Lat Peak E' Antolin: 8.3 cm/sec E/E' lat: 10.8 E/e' average: 11.1 MV dec time: 0.20 sec SV([facility]): 71.2 ml Reading Physician:01:43 PM
== END ==
LOC: ECHO 08:01
PROVIDERS: PCP Family Medicine; Referring Provider Internal Medicine Cardiovascular Disease; Visit Provider Internal Medicine Cardiovascular Disease
DX: R06.02 Shortness of breath (principal); I34.81 Nonrheumatic mitral (valve) annulus calcification; I34.0 Nonrheumatic mitral (valve) insufficiency
CPT/HCPCS: 93306

== ENCOUNTER → 2023-07-28 11:48 | Outpatient (CLI) | payer MEDICARE, OTHER, SELFPAY | PROVIDERS: PCP Family Medicine; Referring Provider Internal Medicine Cardiovascular Disease; Visit Provider Internal Medicine Cardiovascular Disease | DX: R06.02 Shortness of breath (principal); J98.8 Other specified respiratory disorders | CPT/HCPCS: 94060; 94726; 94729 ==

== ENCOUNTER → 2023-09-03 08:21 | Outpatient (CLI) | payer MEDICARE, OTHER, SELFPAY | PROVIDERS: PCP Family Medicine; Visit Provider Physician Assistant Surgical | DX: R30.0 Dysuria (principal) | CPT/HCPCS: 81002; 87077; 87086; 87186 ==

== ENCOUNTER → 2023-11-16 13:10 | Outpatient (CLI) | payer MEDICARE, OTHER, SELFPAY ==
--- NOTE | 2023-11-16 13:12 | DI.MG.S_ITS ---
BILATERAL DIGITAL SCREENING MAMMOGRAM 3D/2D WITH CAD: 11/16/2023 CLINICAL: Routine screening. Personal history of right breast cancer. Comparison is made to exams dated: 11/15/2022 mammogram, 11/13/2021 mammogram, and 11/03/2020 mammogram - [facility]. There are scattered areas of fibroglandular density in both breasts (category b / 25%-50% glandular tissue). Current study was also evaluated with a Computer Aided Detection (CAD) system. There is a benign calcification in the right breast. There also are benign vascular calcifications in the left breast. Additionally, there are benign post operative findings in the right breast. No significant masses, calcifications, or other findings are seen in either breast. There has been no significant interval change. IMPRESSION: BENIGN There is no mammographic evidence of malignancy. A 1 year screening mammogram is recommended. This exam was interpreted at Station ID: [id number]. NOTE: For mammograms, a report in lay terms will be sent to the patient. Approximately 15% of breast malignancies will not be visualized mammographically. In the management of a palpable breast mass, a negative mammogram must not discourage biopsy of a clinically suspicious lesion. Electronically Signed By: Sharee garcia/isabelle:11/16/2023 14:48:23 letter sent: Normal Exam ACR BI-RADS Category 2: Benign Finding(s) 3342F
== END ==
PROVIDERS: PCP Family Medicine; Referring Provider Family Medicine; Visit Provider Family Medicine
DX: Z12.31 Encounter for screening mammogram for malignant neoplasm of breast (principal); Z85.3 Personal history of malignant neoplasm of breast; R92.323 Mammographic fibroglandular density, bilateral breasts
CPT/HCPCS: 77063; 77067

== ENCOUNTER 2024-04-10 12:44 | Emergency (ER) | payer MEDICARE, OTHER, SELFPAY ==
[2024-04-10] VITALS (8 sets, daily range): BP systolic 129–148; BP diastolic 61–71; PULSE 69–97; RESP 15–22; TEMP 36.6; O2SAT 97–99; BMI 29.1
--- NOTE | 2024-04-10 12:57 | DI.RAD.S_ITS ---
PROCEDURE: XR CHEST 1V INDICATIONS: chest pain TECHNIQUE: One view of the chest was acquired. COMPARISON: [facility], CR, XR CHEST 1V, 07/20/2022, 8:25. FINDINGS: Surgical changes and devices: Clips are present overlying the right axilla. Lungs and pleura: Lungs are clear. No pleural effusions or pneumothorax. Mediastinum: Mediastinal contours appear normal. Heart size is mildly enlarged. Bones and chest wall: No suspicious bony lesions. Overlying soft tissues appear unremarkable. IMPRESSION: No acute pulmonary process. Dictated by: Uma Schmitz M.D. on 04/10/2024 at 13:40 Approved by: Uma Schmitz M.D. on 04/10/2024 at 13:40
--- NOTE | 2024-04-10 13:06 | EKG_ITS ---
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
[2024-04-10 13:26] LABS: Add Manual Diff / Slide Review NO; Basophils Absolute Auto 0 /uL (0-100); Basophils Percent Auto 0.6 % (0-2); Eosinophils Absolute Auto 0 /uL (0-450); Eosinophils Percent Auto 0.2 % (2-4); Hematocrit 42.7 % (36-46); Hemoglobin 14.1 g/dL (12.0-16.0); Lymphocytes Absolute Auto 1600 /uL (1100-4500); Lymphocytes Percent Auto 22.8 % (25-40); Mean Corpuscular HGB Conc 32.9 % (30-36); Mean Corpuscular Hemoglobin 31.1 PG (26-34); Mean Corpuscular Volume 94.4 fL (80-100); Monocytes Absolute Auto 300 /uL (0-900); Monocytes Percent Auto 4.1 % (3-14); Neutrophils Absolute Auto 5000 /uL (1500-7000); Neutrophils Percent Auto 72.3 % (50-75); Platelet Count 264 X10^3/uL (150-400); Red Blood Cell Count 4.53 X10^6/uL (4.0-5.2); Red Cell Distribution Width 13.5 % (11.6-14.8); White Blood Cell Count 6.9 X10^3/uL (4.5-11.0)
[2024-04-10 13:38] LABS: Alanine Aminotransferase 24 IU/L (<35); Albumin 4.4 g/dL (3.5-5.0); Albumin Globulin Ratio 1.3 (1.0-2.8); Alkaline Phosphatase 75 U/L (38-126); Aspartate Aminotransferase 36 IU/L (14-36); BUN Creatinine Ratio 22.5 (6-22); Blood Urea Nitrogen 16 mg/dL (7-17); Calcium 9.2 mg/dL (8.4-10.2); Carbon Dioxide 24 mmol/L (22-32); Chloride 106 mmol/L (98-107); Creatine Kinase 40 U/L (30-135); Estimated Glomerular Filt Rate > 60 mL/min (>60); Globulin 3.4 g/dL (1.7-4.1); Glucose 184 mg/dL (80-110); Lipase 76 U/L (23-300); Potassium 4.5 mmol/L (3.4-5.1); Sodium 138 mmol/L (137-145); Total Protein 7.8 g/dL (6.3-8.2)
[2024-04-10 13:41] LABS: HEMOLYSIS 74 (0-50)
[2024-04-10 13:50] LABS: NT-proBNP (BNP-Adult 18+) 549 pg/mL (<450); Troponin I < 0.012 ng/mL (0.01-0.034)
[2024-04-10 13:59] LABS: INR 1.2 (0.9-1.3); Prothrombin Time 13.4 SECONDS (9.4-12.5)
[2024-04-10 14:02] LABS: PTT Partial Thromboplastin Tim 36 SECONDS (25.1-36.5)
--- NOTE | 2024-04-10 17:25 | ED_ITS ---
HPI - Arrhythmia/Palpitations General Chief Complaint: Arrhythmia/Palpitations Stated Complaint: Afib Time Seen by Provider: 04/10/24 16:19 Source: patient and family Mode of arrival: Ambulatory History of Present Illness HPI narrative: 83-year-old woman with a history of paroxysmal atrial fibrillation followed by Dr. Fatima, currently anticoagulated and has flecainide for use as needed. This morning around 6:00 a.m. she noticed that her heart rate was irregular and rapid. She was not having chest pain, orthopnea, or dyspnea. She took 2 flecainide and after 4 hours still felt that her heart rate was erratic and came to the emergency department for further evaluation. She has otherwise been doing quite well and has a routine schedule follow up appointment with Cardiology on April 12 Related Data Home Medications Medication Instructions Recorded Confirmed cyclosporine 0.05 % eye drops in a 1 drp OPHTH Q DAY ##0 01/16/16 09/03/23 dropperette (Restasis) diltiazem HCl 120 mg 120 mg PO DAILY 04/16/22 09/03/23 capsule,extended release 24 hr omeprazole 40 mg capsule,delayed 40 mg PO DAILY 04/16/22 09/03/23 release simvastatin 5 mg tablet 5 mg PO DAILY 04/16/22 09/03/23 Previous Rx's Medication Instructions Recorded apixaban 5 mg tablet (Eliquis) 5 mg PO BID #60 tabs 03/30/22 fluconazole 150 mg tablet 150 mg PO DAILY 1 dose #1 tab 09/03/23 Allergies Allergy/AdvReac Type Severity Reaction Status Date / Time No Known Drug Allergies Allergy Verified 04/10/24 12:57 Review of Systems Review of Systems Narrative: Pertinent positive and negative findings as per HPI Patient History Medical History (Updated 04/10/24 @ 17:58 by Ashley Fermin MD) Paroxysmal atrial fibrillation Tachycardia Hyperlipidemia HLD (hyperlipidemia) Social History Smoking Status: Never smoker Smoking Status: Never smoker alcohol intake frequency: holidays/special occasions only Substance Use Type: does not use Exam Initial Vital Signs Initial Vital Signs: Vital Signs Temperature 97.9 F 04/10/24 12:53 Pulse Rate 97 H 04/10/24 12:53 Respiratory Rate 20 04/10/24 12:53 Blood Pressure 140/66 04/10/24 12:53 Pulse Oximetry 98 04/10/24 12:53 Oxygen Delivery Method Room Air 04/10/24 12:53 General: Healthy appearing, in no acute distress. Able to give a complete and coherent history. Well-nourished well-developed HEENT: Moist mucous membranes, normal sclera with reactive pupils, Respiratory: Lungs are clear to auscultation, no wheezing no rales no rhonchi. Full and symmetrical air movement Cardiac: Regular rate and rhythm no murmurs no bruits Abdomen: Soft, nontender, good bowel tones, no flank pain Skin: Warm and dry, no rashes Neurologic: Grossly neurologically intact with no obvious asymmetries or abnormalities Extremities: No trauma, well perfused Psych: Cooperative, appropriate insight and affect Course Orders Ordered: ED Orders 04/10/24 12:57 XR chest 1V Stat EKG-12 Lead Stat 04/10/24 13:15 Complete Blood Count AUTO DIFF Stat Comprehensive Metabolic Panel Stat Lipase Stat Magnesium Stat NT-proBNP (BNP-Adult 18+) Stat Troponin & CK Cardiac Panel Stat 04/10/24 13:30 PTT Partial Thromboplastin Kurt Stat Prothrombin Time INR Stat Vital Signs Vital signs: Vital Signs - 8 hr 04/10/24 12:53 04/10/24 15:50 04/10/24 16:00 Temperature 97.9 F Pulse Rate 97 H 82 Respiratory Rate 20 16 Blood Pressure 140/66 129/67 Pulse Oximetry 98 98 Oxygen Delivery Method Room Air 04/10/24 16:00 04/10/24 16:30 04/10/24 16:30 Temperature Pulse Rate 77 77 Respiratory Rate 19 16 Blood Pressure 129/61 Pulse Oximetry 97 97 Oxygen Delivery Method 04/10/24 17:00 04/10/24 17:00 Temperature Pulse Rate 74 Respiratory Rate 15 Blood Pressure 137/65 Pulse Oximetry 99 Oxygen Delivery Method MDM - Arrhythmia/Palpitations Lab Data 04/10/24 13:15 04/10/24 13:15 Labs: Lab Results 04/10/24 04/10/24 Range/Units 13:15 13:30 WBC 6.9 (4.5-11.0) X10^3/uL RBC 4.53 (4.0-5.2) X10^6/uL Hgb 14.1 (12.0-16.0) g/dL Hct 42.7 (36-46) % MCV 94.4 (80-100) fL MCH 31.1 (26-34) PG MCHC 32.9 (30-36) % RDW 13.5 (11.6-14.8) % Plt Count 264 (150-400) X10^3/uL Neut % (Auto) 72.3 (50-75) % Lymph % (Auto) 22.8 L (25-40) % Gaines % (Auto) 4.1 (3-14) % Eos % (Auto) 0.2 L (2-4) % Baso % (Auto) 0.6 (0-2) % Neut # (Auto) 5000 (7189-8237) /uL Lymph # (Auto) 1600 (0375-5809) /uL Gaines # (Auto) 300 (0-900) /uL Eos # (Auto) 0 (0-450) /uL Baso # (Auto) 0 (0-100) /uL PT 13.4 H (9.4-12.5) SECONDS INR 1.2 (0.9-1.3) APTT 36 (25.1-36.5) SECONDS Sodium 138 (137-145) mmol/L Potassium 4.5 (3.4-5.1) mmol/L Chloride 106 (98-107) mmol/L Carbon Dioxide 24 (22-32) mmol/L BUN 16 (7-17) mg/dL Creatinine 0.71 (0.52-1.04) mg/dL Estimated GFR > 60 (>60) mL/min BUN/Creatinine Ratio 22.5 H (6-22) Glucose 184 H (80-110) mg/dL Calcium 9.2 (8.4-10.2) mg/dL Magnesium 2.0 (1.6-2.3) mg/dL Total Bilirubin 1.0 (0.2-1.3) mg/dL AST 36 (14-36) IU/L ALT 24 (<35) IU/L Alkaline Phosphatase 75 (38-126) U/L Total Creatine Kinase 40 (30-135) U/L Troponin I < 0.012 (0.01-0.034) ng/mL NT-Pro-B Natriuret Pep 549 H (<450) pg/mL Total Protein 7.8 (6.3-8.2) g/dL Albumin 4.4 (3.5-5.0) g/dL Globulin 3.4 (1.7-4.1) g/dL Albumin/Globulin Ratio 1.3 (1.0-2.8) Lipase 76 (23-300) U/L MDM Narrative Medical decision making narrative: CC: Paroxysmal atrial fibrillation Complicating co-morbidities: Anticoagulated, hypertension, hyperlipidemia Data collected from: patient Differential considered: AFib, SVT, ventricular tachycardia, sinus tachycardia Exam documented above, pertinent findings include: Exam is entirely benign, patient has converted to regular sinus rhythm Lab Test results independently reviewed as above. Pertinent findings: CBC is unremarkable Metabolic panel shows no kidney dysfunction, no electrolyte abnormalities Initial troponin is undetectable BNP is minimally elevated just above 300 Independently reviewed EKG: EKG done at 106 this afternoon shows sinus rhythm at a rate of 91 without ischemic changes Imaging studies independently reviewed: Chest x-ray shows no acute pathology Discussion: 83-year-old woman with a history of paroxysmal atrial fibrillation episode this morning based on her Apple watch and a sensation of palpitations. She took 2 flecainide and symptoms resolved within approximately 5 hours. Lab workup is unremarkable. She is feeling well at this time. 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 She would multiple questions about flecainide and I defer them to her fish bait processing supervisor. At this point I recommended that she continue all of her medications including her apixaban. There was no indication for additional imaging studies or hospitalization at this time and she is safe for discharge Discharge Plan Departure Patient Disposition: Home Clinical Impression: Atrial fibrillation Qualifiers: Atrial fibrillation type: paroxysmal Qualified Code(s): I48.0 - Paroxysmal atrial fibrillation Instructions: DI for Atrial Flutter Activity Restrictions/Additional Instructions: Thank you for coming in today You did everything absolutely perfectly with the 2 doses of flecainide when you recognize the atrial fibrillation this morning. By the time he got to the emergency department your EKG looks reassuringly normal. Your lab work was also normal I have given you copies of your EKG, lab work and reports of the chest x-ray to share with your fish bait processing supervisor with your appointment on the . Please continue all of your usual medications including apixaban. If you find that you are getting worse or develop any new symptoms, please feel free to return to the emergency department for further evaluation. Prescriptions: No Action fluconazole 150 mg tablet 150 mg PO DAILY Qty: 1 0RF Rx Instructions: administer on day 1 of therapy cyclosporine [Restasis] 1 EACH dropperette 1 drp OPHTH Q DAY Qty: 0 diltiazem HCl 120 mg capsule,extended release 24hr 120 mg PO DAILY omeprazole 40 mg capsule,delayed release(DR/EC) 40 mg PO DAILY simvastatin 5 mg tablet 5 mg PO DAILY Eliquis 5 mg tablet 5 mg PO BID Qty: 60 0RF Referrals: Mitch Price MD [Primary Care Provider] - Stand Alone Forms: Patient Portal/API/Survey
== END 2024-04-10 18:18 | disposition home or self-care (01) ==
PROVIDERS: Emergency Provider Emergency Medicine; PCP Family Medicine
DX: I48.0 Paroxysmal atrial fibrillation (principal); Z79.01 Long term (current) use of anticoagulants; R07.9 Chest pain, unspecified
CPT/HCPCS: 36415; 71045; 80053; 82550; 83690; 83735; 83880; 84484; 85025; 85610; 85730; 93005; 93010; 99283; 99284

== ENCOUNTER 2024-05-28 11:44 | Emergency (ER) | payer MEDICARE, OTHER, SELFPAY ==
[2024-05-28] VITALS (20 sets, daily range): BP systolic 115–184; BP diastolic 57–81; PULSE 62–85; RESP 14–31; TEMP 36.6; O2SAT 95–99; BMI 28.3
--- NOTE | 2024-05-28 12:00 | EKG_ITS ---
[address] [address] Test Date: 2024-05-28 Pat Name: Deborah Sands Department: [facility] Room: Gender: Female Spark Tester: NEDRA : 1940 Requested By: Order Number: [id number] Reading MD: Brayan Donnelly Measurements Intervals [place] Rate: 69 P: 52 RI: 164 QRS: 26 QRSD: 70 T: 33 QT: 396 QTc: 424 Interpretive Statements Normal sinus rhythm Electronically Signed On 05-31-2024 9:42:20 PST by Brayan Donnelly
--- NOTE | 2024-05-28 12:00 | DI.RAD.S_ITS ---
PROCEDURE: XR CHEST 1V INDICATIONS: Shortness of breath TECHNIQUE: One view of the chest was acquired. COMPARISON: [facility], CR, XR CHEST 1V, 04/10/2024, 13:11. [facility], CR, XR CHEST 1V, 07/20/2022, 8:25. FINDINGS: Surgical changes and devices: Right chest wall surgical clips. Lungs and pleura: Lungs are clear. No pleural effusions or pneumothorax. Mediastinum: Mediastinal contours appear normal. Heart size is normal. Bones and chest wall: No suspicious bony lesions. Overlying soft tissues appear unremarkable. IMPRESSION: No acute cardiopulmonary abnormality is seen. Dictated by: Junaid Borrero M.D. on 05/28/2024 at 13:06 Approved by: Junaid Borrero M.D. on 05/28/2024 at 13:06
[2024-05-28 12:16] LABS: Add Manual Diff / Slide Review NO; Basophils Absolute Auto 100 /uL (0-100); Basophils Percent Auto 0.8 % (0-2); Eosinophils Absolute Auto 0 /uL (0-450); Eosinophils Percent Auto 0.5 % (2-4); Hematocrit 40.5 % (36-46); Hemoglobin 13.3 g/dL (12.0-16.0); Lymphocytes Absolute Auto 1900 /uL (1100-4500); Lymphocytes Percent Auto 28.1 % (25-40); Mean Corpuscular HGB Conc 32.9 % (30-36); Mean Corpuscular Hemoglobin 31.1 PG (26-34); Mean Corpuscular Volume 94.6 fL (80-100); Monocytes Absolute Auto 500 /uL (0-900); Neutrophils Absolute Auto 4200 /uL (1500-7000); Neutrophils Percent Auto 62.6 % (50-75); Platelet Count 260 X10^3/uL (150-400); Red Blood Cell Count 4.28 X10^6/uL (4.0-5.2); Red Cell Distribution Width 13.3 % (11.6-14.8); White Blood Cell Count 6.8 X10^3/uL (4.5-11.0)
[2024-05-28 12:23] LABS: INR 1.2 (0.9-1.3); Prothrombin Time 13.8 SECONDS (9.4-12.5)
[2024-05-28 12:27] LABS: Alanine Aminotransferase 25 IU/L (<35); Albumin 4.1 g/dL (3.5-5.0); Albumin Globulin Ratio 1.3 (1.0-2.8); Alkaline Phosphatase 66 U/L (38-126); Aspartate Aminotransferase 41 IU/L (14-36); BUN Creatinine Ratio 23.1 (6-22); Bilirubin Total 0.9 mg/dL (0.2-1.3); Blood Urea Nitrogen 15 mg/dL (7-17); Calcium 8.7 mg/dL (8.4-10.2); Carbon Dioxide 21 mmol/L (22-32); Chloride 110 mmol/L (98-107); Estimated Glomerular Filt Rate > 60 mL/min (>60); Globulin 3.2 g/dL (1.7-4.1); Glucose 114 mg/dL (80-110); HEMOLYSIS 47 (0-50); Lactate (Lactic Acid) 1.4 mmol/L (0.7-2.1); Potassium 4.7 mmol/L (3.4-5.1); Sodium 139 mmol/L (137-145); Total Protein 7.3 g/dL (6.3-8.2)
[2024-05-28 12:39] LABS: NT-proBNP (BNP-Adult 18+) 986 pg/mL (<450); Troponin I < 0.012 ng/mL (0.01-0.034)
--- NOTE | 2024-05-28 13:41 | PC.NURSE ---
PT reports that the pain has come back. Dr Chan notified.
--- NOTE | 2024-05-28 14:31 | ED_ITS ---
HPI - Dizziness General Chief Complaint: Dizziness Stated Complaint: dizziness Time Seen by Provider: 05/28/24 14:29 History of Present Illness HPI Narrative: Patient is a 83-year-old female history of paroxysmal atrial fibrillation followed by Dr. Fatima currently on anticoagulation and metoprolol presenting today with dizziness. She reports that she gets very dizzy when she stands feels unsteady on her feet. It is also present whenever she turns her head. She does not feel like the room is spinning she denies any nausea or vomiting. No numbness tingling or weakness. She denies any sort of chest pain or palpitations. She denies any sort of headache. She has no known history of vertigo Related Data Home Medications Medication Instructions Recorded Confirmed cyclosporine 0.05 % eye drops in a 1 drp OPHTH Q DAY ##0 01/16/16 09/03/23 dropperette (Restasis) diltiazem HCl 120 mg 120 mg PO DAILY 04/16/22 09/03/23 capsule,extended release 24 hr omeprazole 40 mg capsule,delayed 40 mg PO DAILY 04/16/22 09/03/23 release simvastatin 5 mg tablet 5 mg PO DAILY 04/16/22 09/03/23 Previous Rx's Medication Instructions Recorded apixaban 5 mg tablet (Eliquis) 5 mg PO BID #60 tabs 03/30/22 fluconazole 150 mg tablet 150 mg PO DAILY 1 dose #1 tab 09/03/23 meclizine 25 mg tablet 25 mg PO TID PRN dizziness #10 tabs 05/28/24 ondansetron 4 mg disintegrating 4 mg PO Q8H PRN nausea and 05/28/24 tablet vomiting #10 tabs Allergies Allergy/AdvReac Type Severity Reaction Status Date / Time No Known Drug Allergies Allergy Verified 04/10/24 12:57 Patient History Medical History Paroxysmal atrial fibrillation Tachycardia Hyperlipidemia HLD (hyperlipidemia) Social History Smoking Status: Never smoker Smoking Status: Never smoker alcohol intake frequency: holidays/special occasions only Exam Initial Vital Signs Initial Vital Signs: Vital Signs Temperature 97.8 F 05/28/24 11:56 Pulse Rate 80 05/28/24 11:56 Respiratory Rate 20 05/28/24 11:56 Blood Pressure 184/81 H 05/28/24 11:56 Pulse Oximetry 97 05/28/24 11:56 Oxygen Delivery Method Room Air 05/28/24 11:56 GENERAL: Alert pleasant well-appearing 83-year-old female and in [no acute] distress. HEENT: Head atraumatic,EOMI, pupils reactive, minimal nystagmus, face symmetric, [moist] mucous membranes CARDIOVASCULAR: Regular rate and rhythm without murmurs, rubs or gallops. RESPIRATORY: Breath sounds equal bilaterally, no wheezes rales or rhonchi. ABDOMEN: Soft, nontender. Normoactive bowel sounds all 4 quadrants. No guarding or rebound. EXTREMITIES: Normal range of motion, no clubbing or edema. Neurovascularly intact NEUROLOGICAL: Alert and oriented x4.Normal gait and speech. Cranial nerves II through XII grossly intact. [Good [id number], good [id number], strength equal bilaterally, no dysarthria or aphasia, sensation in tact to soft touch bilaterally, no visual changes, no facial droop] SKIN: Warm, dry, no laceration, no petechiae, no rashes or lesions. Scores NIH Stroke Scale Level of Conciousness: Alert, keenly responsive Ask month/age: Answers both questions correctly. Open/close eyes, close hand: Performs both tasks correctly Best gaze horizontal: Normal Visual frank: No visual loss Facial palsy: Normal symetrical movement Left arm drift: No drift for full 10 sec Right arm drift: No drift for full 10 sec Left leg drift: No drift for full 5 sec Right leg drift: No drift for full 5 sec Limb ataxia: Absent Sensory on face/arms/legs: Normal, no sensory loss Best language: No aphasia, normal Dysarthria: Normal Extinction or inattention: No abnormality Total NIH Stroke scale score: 0 Course Orders Ordered: ED Orders 05/28/24 12:00 XR chest 1V Stat EKG-12 Lead Stat Measure peak expiratory flow ONCE RT Consult Eval and Treat NOW 05/28/24 12:07 Complete Blood Count AUTO DIFF Stat Comprehensive Metabolic Panel Stat Lactate (Lactic Acid) Stat NT-proBNP (BNP-Adult 18+) Stat Prothrombin Time INR Stat Troponin I Stat 05/28/24 16:32 CT head/brain wo con Stat Discontinued Medications Sodium Chloride (Normal Saline 0.9%) 1,000 mls @ 1,000 mls/hr IV BOLUS ONE Stop: 05/28/24 17:31 Last Infusion: 05/28/24 18:44 Dose: Infused Documented By: Admin: 05/28/24 16:57 Dose: 1,000 mls/hr Documented By: GALILEO Meclizine HCl (Meclizine Hcl 12.5 Mg Tablet) 50 mg PO NOW ONE Stop: 05/28/24 14:46 Last Admin: 05/28/24 14:50 Dose: 50 mg Documented By: GALILEO Ondansetron HCl (Ondansetron 4 Mg/2 Ml Inj) 4 mg IV NOW ONE Stop: 05/28/24 14:46 Last Admin: 05/28/24 14:51 Dose: 4 mg Documented By: GALILEO Vital Signs Vital signs: Vital Signs - 8 hr 05/28/24 11:56 05/28/24 13:02 05/28/24 13:03 Temperature 97.8 F Pulse Rate 80 70 70 Respiratory Rate 20 15 Blood Pressure 184/81 H Pulse Oximetry 97 96 95 Oxygen Delivery Method Room Air 05/28/24 13:03 05/28/24 13:30 05/28/24 13:31 Temperature Pulse Rate 73 Respiratory Rate 17 Blood Pressure 144/72 H 115/57 L Pulse Oximetry 96 Oxygen Delivery Method 05/28/24 13:31 05/28/24 14:00 05/28/24 14:01 Temperature Pulse Rate 75 63 Respiratory Rate 18 17 Blood Pressure 154/65 H Pulse Oximetry 96 98 Oxygen Delivery Method Room Air 05/28/24 14:01 05/28/24 14:30 05/28/24 14:30 Temperature Pulse Rate 64 62 Respiratory Rate 16 21 Blood Pressure 155/70 H Pulse Oximetry 99 97 Oxygen Delivery Method Room Air 05/28/24 15:00 05/28/24 15:30 05/28/24 16:00 Temperature Pulse Rate 73 63 63 Respiratory Rate 19 18 21 Blood Pressure Pulse Oximetry 96 98 99 Oxygen Delivery Method 05/28/24 16:12 05/28/24 16:12 05/28/24 16:30 Temperature Pulse Rate 85 Respiratory Rate 19 Blood Pressure 157/74 H 128/62 Pulse Oximetry 95 Oxygen Delivery Method 05/28/24 16:30 05/28/24 17:00 05/28/24 17:30 Temperature Pulse Rate 69 64 69 Respiratory Rate 23 17 24 Blood Pressure Pulse Oximetry 99 98 97 Oxygen Delivery Method 05/28/24 17:42 05/28/24 17:42 05/28/24 18:00 Temperature Pulse Rate 72 Respiratory Rate 20 Blood Pressure 133/62 156/72 H Pulse Oximetry 97 Oxygen Delivery Method 05/28/24 18:00 05/28/24 18:30 05/28/24 18:31 Temperature Pulse Rate 69 67 Respiratory Rate 31 H 25 H Blood Pressure 145/65 H Pulse Oximetry 99 98 Oxygen Delivery Method Room Air 05/28/24 18:31 05/28/24 18:53 05/28/24 18:53 Temperature Pulse Rate 69 74 Respiratory Rate 19 14 Blood Pressure 161/74 H Pulse Oximetry 97 97 Oxygen Delivery Method MDM - Dizziness Lab Data 05/28/24 12:07 05/28/24 12:07 Labs: Lab Results 05/28/24 Range/Units 12:07 WBC 6.8 (4.5-11.0) X10^3/uL RBC 4.28 (4.0-5.2) X10^6/uL Hgb 13.3 (12.0-16.0) g/dL Hct 40.5 (36-46) % MCV 94.6 (80-100) fL MCH 31.1 (26-34) PG MCHC 32.9 (30-36) % RDW 13.3 (11.6-14.8) % Plt Count 260 (150-400) X10^3/uL Neut % (Auto) 62.6 (50-75) % Lymph % (Auto) 28.1 (25-40) % [place] % (Auto) 8.0 (3-14) % Eos % (Auto) 0.5 L (2-4) % Baso % (Auto) 0.8 (0-2) % Neut # (Auto) 4200 (2699-1843) /uL Lymph # (Auto) 1900 (8066-7612) /uL [place] # (Auto) 500 (0-900) /uL Eos # (Auto) 0 (0-450) /uL Baso # (Auto) 100 (0-100) /uL PT 13.8 H (9.4-12.5) SECONDS INR 1.2 (0.9-1.3) Sodium 139 (137-145) mmol/L Potassium 4.7 (3.4-5.1) mmol/L Chloride 110 H (98-107) mmol/L Carbon Dioxide 21 L (22-32) mmol/L BUN 15 (7-17) mg/dL Creatinine 0.65 (0.52-1.04) mg/dL Estimated GFR > 60 (>60) mL/min BUN/Creatinine Ratio 23.1 H (6-22) Glucose 114 H (80-110) mg/dL Lactate 1.4 (0.7-2.1) mmol/L Calcium 8.7 (8.4-10.2) mg/dL Total Bilirubin 0.9 (0.2-1.3) mg/dL AST 41 H (14-36) IU/L ALT 25 (<35) IU/L Alkaline Phosphatase 66 (38-126) U/L Troponin I < 0.012 (0.01-0.034) ng/mL NT-Pro-B Natriuret Pep 986 H (<450) pg/mL Total Protein 7.3 (6.3-8.2) g/dL Albumin 4.1 (3.5-5.0) g/dL Globulin 3.2 (1.7-4.1) g/dL Albumin/Globulin Ratio 1.3 (1.0-2.8) Imaging Data Chest x-ray: Radiologist's Impression: PROCEDURE: XR CHEST 1V INDICATIONS: Shortness of breath TECHNIQUE: One view of the chest was acquired. COMPARISON: [facility], , XR CHEST 1V, 04/10/2024, 13:11. [facility], , XR CHEST 1V, 07/20/2022, 8:25. FINDINGS: Surgical changes and devices: Right chest wall surgical clips. Lungs and pleura: Lungs are clear. No pleural effusions or pneumothorax. Mediastinum: Mediastinal contours appear normal. Heart size is normal. Bones and chest wall: No suspicious bony lesions. Overlying soft tissues appear unremarkable. IMPRESSION: No acute cardiopulmonary abnormality is seen. Dictated by: Junaid Borrero M.D. on 05/28/2024 at 13:06 CT scan - head: Radiologist's Impression: PROCEDURE: CT HEAD/BRAIN WO CON INDICATIONS: persistant dizzy on anticoagulation TECHNIQUE: Noncontrast 4.5 mm thick angled axial sections acquired from the foramen magnum to the vertex, with coronal and sagittal reformats. For radiation dose reduction, the following was used: automated exposure control, adjustment of mA and/or kV according to patient size. COMPARISON: None. FINDINGS: Image quality: Diagnostic. CSF spaces: Basal cisterns are patent. No extra-axial fluid collections. The ventricles are symmetric in size and shape. Brain: No intracranial bleeds or masses. There is cerebral volume loss for age, with resultant ventricular and sulcal prominence. There are periventricular and deep white matter chronic small vessel ischemic changes. There is intracranial internal carotid artery atherosclerosis. Skull and face: Calvarium and visualized facial bones appear intact, without suspicious lesions. Sinuses: Visualized sinuses and mastoids are clear. IMPRESSION: No acute intracranial pathology. Dictated by: Junaid Borrero M.D. on 05/28/2024 at 17:00 ECG Data Attestation: I personally reviewed and interpreted this ECG as follows: Prior ECG tracings: available for review Interpretation: Normal sinus rhythm rate 69 AK interval 164 QRS [address] changes MDM Narrative Medical decision making narrative: MDM CC: Dizziness] Complicating co-morbidities: Atrial fibrillation on anticoagulation Corroborating data: Family Medical records reviewed: Previous ED visits Differential considered: Vertigo vestibular neuritis posterior CVA dehydration infection Exam documented above, pertinent findings include: Supple mild nystagmus no ataxia no weakness NIH stroke scale 0 symptoms are definitely reproducible with position and standing no evidence of fluid overload Lab Test results independently reviewed as above. Pertinent findings: WBC 6.8 hemoglobin 13.3 hematocrit 40.5 platelets 260 Sodium 139 potassium 4.7 chloride 110 bicarb 21 BUN 15 creatinine 0.6 glucose 114 lactate 1.4 Lactic BNP 986 troponin negative Independently reviewed EKG as above No ischemia no arrhythmia Imaging studies independently reviewed: Chest x-ray No cardiopulmonary process Head CT no acute intracranial pathology Treatments: Meclizine Zofran fluids Discussion: patient ambulated after meclizine. She needs a walker but was able to walk she still did not feel quite steady on her feet she was on anticoagulation decision to do head CT she has not having focal deficits. Patient still did not feel quite right head CT was negative for intracranial hemorrhage. She ambulated again she does need a walker to get around but she has not persistently vomiting she has no focal deficits. I do suspect more of vertigo since it is very positional. Recommend supportive care return as needed Discharge Plan Departure Patient Disposition: Home Clinical Impression: Benign paroxysmal positional vertigo Instructions: DI for Vertigo Activity Restrictions/Additional Instructions: *You have been diagnosed with vertigo *What to do: At this time I hope that this resolves for you quickly. Workup in the emergency department overall reassuring. Please use walker so that you do not *Continue to take medications as directed Meclizine 25 mg every 8 hours if needed for dizziness Zofran 4 mg every 8 hours if needed for nausea or vomiting *Follow up with your primary care provider in 2-3 days or call [phone] *Return to ER if you should have increasing dizziness weakness persistent vomiting or any new, worsening or concerning symptoms Prescriptions: New meclizine 25 mg tablet 25 mg PO TID PRN (Reason: dizziness) Qty: 10 0RF ondansetron 4 mg tablet,disintegrating 4 mg PO Q8H PRN (Reason: nausea and vomiting) Qty: 10 0RF No Action fluconazole 150 mg tablet 150 mg PO DAILY Qty: 1 0RF Rx Instructions: administer on day 1 of therapy cyclosporine [Restasis] 1 EACH dropperette 1 drp OPHTH Q DAY Qty: 0 diltiazem HCl 120 mg capsule,extended release 24hr 120 mg PO DAILY omeprazole 40 mg capsule,delayed release(DR/EC) 40 mg PO DAILY simvastatin 5 mg tablet 5 mg PO DAILY Eliquis 5 mg tablet 5 mg PO BID Qty: 60 0RF Referrals: Mitch Price MD [Primary Care Provider] - Stand Alone Forms: Patient Portal/API/Survey
[2024-05-28] MEDS: MECLIZINE HCL 12.5 MG TABLET 50 MG PO (14:50)
[2024-05-28] MEDS: ONDANSETRON 4 MG/2 ML INJ IV (14:51)
--- NOTE | 2024-05-28 16:26 | PC.NURSE ---
Pt ambulated to MD station using FWW. Dr Chan observing how dizzy pt is. MD to order CT scan of head. Pt assisted to ambulate back to room.
--- NOTE | 2024-05-28 16:32 | DI.CT.S_ITS ---
PROCEDURE: CT HEAD/BRAIN WO CON INDICATIONS: persistant dizzy on anticoagulation TECHNIQUE: Noncontrast 4.5 mm thick angled axial sections acquired from the foramen magnum to the vertex, with coronal and sagittal reformats. For radiation dose reduction, the following was used: automated exposure control, adjustment of mA and/or kV according to patient size. COMPARISON: None. FINDINGS: Image quality: Diagnostic. CSF spaces: Basal cisterns are patent. No extra-axial fluid collections. The ventricles are symmetric in size and shape. Brain: No intracranial bleeds or masses. There is cerebral volume loss for age, with resultant ventricular and sulcal prominence. There are periventricular and deep white matter chronic small vessel ischemic changes. There is intracranial internal carotid artery atherosclerosis. Skull and face: Calvarium and visualized facial bones appear intact, without suspicious lesions. Sinuses: Visualized sinuses and mastoids are clear. IMPRESSION: No acute intracranial pathology. Dictated by: Junaid Borrero M.D. on 05/28/2024 at 17:00 Approved by: Junaid Borrero M.D. on 05/28/2024 at 17:01
[2024-05-28] MEDS: SODIUM CHLORIDE 0.9% 1,000 ML 1000 ML IV (16:57)
--- NOTE | 2024-05-28 18:58 | PC.NURSE ---
Pt awake and alert. Pt is able to ambulate with SBA using FWW. Pt needs frequent reminders to slow down and watch feet planting. pt reports that she remains dizzy.
== END 2024-05-28 18:58 | disposition home or self-care (01) ==
PROVIDERS: Emergency Provider Emergency Medicine; PCP Family Medicine
DX: H81.10 Benign paroxysmal vertigo, unspecified ear (principal); I48.91 Unspecified atrial fibrillation; Z79.01 Long term (current) use of anticoagulants
CPT/HCPCS: 36415; 70450; 71045; 80053; 83605; 83880; 84484; 85025; 85610; 93005; 96361; 96374; 99284; J2405

== ENCOUNTER → 2024-07-09 14:33 | Outpatient (CLI) | payer MEDICARE, OTHER, SELFPAY | PROVIDERS: PCP Family Medicine; Visit Provider Nurse Practitioner Family | DX: J02.9 Acute pharyngitis, unspecified (principal) | CPT/HCPCS: 87070 ==

== ENCOUNTER → 2024-10-23 10:55 | Outpatient (CLI) | payer MEDICARE, OTHER, SELFPAY ==
--- NOTE | 2024-10-23 10:58 | DI.RAD.S_ITS ---
PROCEDURE: XR ACUTE ABDOMEN SERIES INDICATIONS: Diarrhea, unspecified for 3 weeks TECHNIQUE: One view chest and two views of the abdomen were acquired. COMPARISON: None. FINDINGS: Moderate levoscoliosis of the thoracolumbar junction, degenerative changes lower thoracic, lumbar spine and hips. No abnormally dilated bowel segments, no free gas. Chest: Mild bibasilar subsegmental atelectasis. Mild bilateral perihilar and lower lobe peribronchial thickening, some of which may be related expiratory result; however, bronchitis, viral infection, asthma or other process should be considered. Mildly prominent damaris, pulmonary vessels and/or hilar lymph nodes. Mildly elevated/eventrated right hemidiaphragm. Cardiopericardial silhouette within normal limits. No pneumothorax, no pleural effusion, no lobar consolidation. IMPRESSION: Nonspecific abdominal bowel gas pattern without radiographic evidence of obstruction or free gas. Subsegmental atelectasis, peribronchial thickening as discussed above. If symptoms persist or worsen, or there is high clinical suspicion of abnormality, CT could be performed. Dictated by: Myles Abrams M.D. on 10/23/2024 at 12:44 Approved by: Myles Abrams M.D. on 10/23/2024 at 12:47
== END ==
PROVIDERS: PCP Family Medicine; Referring Provider Family Medicine; Visit Provider Family Medicine
DX: J98.11 Atelectasis (principal); R19.7 Diarrhea, unspecified; K21.9 Gastro-esophageal reflux disease without esophagitis
CPT/HCPCS: 74022

== ENCOUNTER 2024-11-20 07:13 | Emergency (ER) | payer MEDICARE, OTHER, SELFPAY ==
[2024-11-20 07:22] VITALS: BP 167/65; PULSE 100; RESP 20; TEMP 36.6; O2SAT 95; BMI 28.3
--- NOTE | 2024-11-20 07:29 | DI.RAD.S_ITS ---
PROCEDURE: XR CHEST 1V INDICATIONS: Chest Pain TECHNIQUE: One view of the chest was acquired. COMPARISON: [facility], CR, XR CHEST 1V, 05/28/2024, 12:02. FINDINGS: Surgical changes and devices: Right axillary clips. Lungs and pleura: Patchy bibasilar atelectasis. Blunting of left lateral costophrenic angle, similar to previous. Mediastinum: Mediastinal contours appear normal. Heart size is normal. Bones and chest wall: No suspicious bony lesions. Overlying soft tissues appear unremarkable. IMPRESSION: Patchy bibasilar atelectasis. Dictated by: Erickson Monahan M.D. on 11/20/2024 at 8:13 Approved by: Erickson Monahan M.D. on 11/20/2024 at 8:14
--- NOTE | 2024-11-20 07:35 | EKG_ITS ---
[facility] [address] [place] [address] Test Date: 2024-11-20 Pat Name: Deborah Sands Department: [facility] Room: Gender: Female [employer] Work[employer]: [place] : [id number] Requested By: Order Number: [id number] Reading MD: Eliazar Ray MD Measurements Intervals [place] Rate: 90 P: 57 [place]: 156 QRS: 32 QRSD: 76 T: 11 QT: 380 QTc: 464 Interpretive Statements Sinus rhythm with frequent and consecutive premature ventricular complexes and fusion complexes Electronically Signed On 11-20-2024 9:23:10 PDT by Eliazar Ray MD
[2024-11-20 08:01] LABS: Add Manual Diff / Slide Review NO; Basophils Absolute Auto 100 /uL (0-100); Eosinophils Absolute Auto 100 /uL (0-450); Eosinophils Percent Auto 0.8 % (2-4); Hematocrit 37.6 % (36-46); Hemoglobin 12.5 g/dL (12.0-16.0); Lymphocytes Absolute Auto 1300 /uL (1100-4500); Lymphocytes Percent Auto 19.4 % (25-40); Mean Corpuscular HGB Conc 33.2 % (30-36); Mean Corpuscular Hemoglobin 30.8 PG (26-34); Mean Corpuscular Volume 92.6 fL (80-100); Monocytes Absolute Auto 500 /uL (0-900); Neutrophils Absolute Auto 4800 /uL (1500-7000); Neutrophils Percent Auto 71.8 % (50-75); Platelet Count 218 X10^3/uL (150-400); Red Blood Cell Count 4.06 X10^6/uL (4.0-5.2); Red Cell Distribution Width 13.9 % (11.6-14.8); White Blood Cell Count 6.6 X10^3/uL (4.5-11.0)
[2024-11-20 08:12] LABS: INR 1.4 (0.9-1.3); Prothrombin Time 15.6 SECONDS (9.4-12.5)
--- NOTE | 2024-11-20 08:12 | ED.CHESTPAIN ---
HPI - Chest Pain General Chief Complaint: Chest Pain Stated Complaint: SOB, sick for 2 days Time Seen by Provider: 11/20/24 07:13 Source: patient Mode of arrival: Ambulatory History of Present Illness HPI narrative: 84-year-old woman with a history of paroxysmal atrial fibrillation, on apixaban and metoprolol, reflux, hyperlipidemia presents complaining of a chest tightness sensation that she is having difficulty breathing, 48 hours ago she had bandlike tightness around her entire upper abdomen that resolved after about 24 hours. She is not noticing that is symptoms today. She feels that something is wrong but does not feel like she has an acute infectious type etiology. She is not having fevers, chills she is not describing a cough there was no body aches. She notes she has had almost 2 months of chronic diarrhea has had stool studies done showing no infectious pathology and she was instructed to use Imodium as needed. She does not describe palpitations or overt chest pain just an overall tightness with a sensation of dyspnea. Does not describe this is exertional or positional. No lower extremity edema Related Data Home Medications ?Medication ?Instructions ?Recorded ?Confirmed cyclosporine 0.05 % eye drops in a 1 drp OPHTH Q DAY ##0 01/16/16 07/09/24 dropperette (Restasis) omeprazole 40 mg capsule,delayed 40 mg PO DAILY 04/16/22 07/09/24 release metoprolol succinate 50 mg mg PO 07/09/24 07/09/24 tablet,extended release 24 hr simvastatin 10 mg tablet mg PO 07/09/24 07/09/24 Previous Rx's ?Medication ?Instructions ?Recorded apixaban 5 mg tablet (Eliquis) 5 mg PO BID #60 tabs 03/30/22 furosemide 20 mg tablet 20 mg PO DAILY #7 tabs 11/20/24 potassium chloride 8 mEq 8 meq PO DAILY #7 caps 11/20/24 capsule,extended release Allergies Allergy/AdvReac Type Severity Reaction Status Date / Time No Known Drug Allergies Allergy Verified 11/20/24 07:24 Review of Systems Review of Systems Narrative: Pertinent positive and negative findings as per HPI Patient History Medical History Paroxysmal atrial fibrillation Tachycardia Hyperlipidemia HLD (hyperlipidemia) Social History Smoking Status: Never smoker Smoking Status: Never smoker alcohol intake frequency: holidays/special occasions only Exam Initial Vital Signs Initial Vital Signs: Vital Signs Temperature 97.9 F 11/20/24 07:22 Pulse Rate 100 H 11/20/24 07:22 Respiratory Rate 20 11/20/24 07:22 Blood Pressure 167/65 H 11/20/24 07:22 Pulse Oximetry 95 11/20/24 07:22 Oxygen Delivery Method Room Air 11/20/24 07:22 General: Healthy appearing, in no acute distress. Able to give a complete and coherent history. Well-nourished well-developed HEENT: Moist mucous membranes, normal sclera with reactive pupils, Respiratory: Lungs are clear to auscultation, no wheezing no rales no rhonchi. Full and symmetrical air movement Cardiac: Regular rate and rhythm no murmurs no bruits Abdomen: Soft, nontender, no rebound or guarding, no flank pain Skin: Warm and dry, no rashes Neurologic: Grossly neurologically intact with no obvious asymmetries or abnormalities Extremities: No trauma, well perfused Psych: Cooperative, appropriate insight and affect Course Orders Ordered: ED Orders 11/20/24 07:29 XR chest 1V Stat EKG-12 Lead Stat 11/20/24 07:48 Complete Blood Count AUTO DIFF Stat Comprehensive Metabolic Panel Stat Lipase Stat Magnesium Stat NT-proBNP (BNP-Adult 18+) Stat PTT Partial Thromboplastin Kurt Stat Prothrombin Time INR Stat Troponin & CK Cardiac Panel Stat Discontinued Medications Aspirin (Aspirin 81 Mg Chew Tab) 324 mg PO NOW ONE Stop: 11/20/24 07:29 Last Admin: 11/20/24 09:03 Dose: Not Given Documented By: ES Vital Signs Vital signs: Vital Signs - 8 hr 11/20/24 07:22 11/20/24 09:42 11/20/24 09:58 Temperature 97.9 F Pulse Rate 100 H 72 Respiratory Rate 20 Blood Pressure 167/65 H 141/68 H Pulse Oximetry 95 97 Oxygen Delivery Method Room Air 11/20/24 10:00 Temperature Pulse Rate 74 Respiratory Rate 17 Blood Pressure 152/71 H Pulse Oximetry 96 Oxygen Delivery Method MDM - Chest Pain Lab Data 11/20/24 07:48 11/20/24 07:48 Labs: Lab Results 11/20/24 Range/Units 07:48 WBC 6.6 (4.5-11.0) X10^3/uL RBC 4.06 (4.0-5.2) X10^6/uL Hgb 12.5 (12.0-16.0) g/dL Hct 37.6 (36-46) % MCV 92.6 (80-100) fL MCH 30.8 (26-34) PG MCHC 33.2 (30-36) % RDW 13.9 (11.6-14.8) % Plt Count 218 (150-400) X10^3/uL Neut % (Auto) 71.8 (50-75) % Lymph % (Auto) 19.4 L (25-40) % Stoddard % (Auto) 7.0 (3-14) % Eos % (Auto) 0.8 L (2-4) % Baso % (Auto) 1.0 (0-2) % Neut # (Auto) 4800 (7707-9730) /uL Lymph # (Auto) 1300 (5762-4042) /uL Stoddard # (Auto) 500 (0-900) /uL Eos # (Auto) 100 (0-450) /uL Baso # (Auto) 100 (0-100) /uL PT 15.6 H (9.4-12.5) SECONDS INR 1.4 H (0.9-1.3) APTT 36 (25.1-36.5) SECONDS Sodium 138 (137-145) mmol/L Potassium 3.8 (3.4-5.1) mmol/L Chloride 108 H (98-107) mmol/L Carbon Dioxide 21 L (22-32) mmol/L BUN 14 (7-17) mg/dL Creatinine 0.66 (0.52-1.04) mg/dL Estimated GFR > 60 (>60) mL/min BUN/Creatinine Ratio 21.2 (6-22) Glucose 193 H (70-99) mg/dL Calcium 8.8 (8.4-10.2) mg/dL Magnesium 1.9 (1.6-2.3) mg/dL Total Bilirubin 0.9 (0.2-1.3) mg/dL AST 33 (14-36) IU/L ALT 23 (<35) IU/L Alkaline Phosphatase 65 (38-126) U/L Total Creatine Kinase 35 (30-135) U/L Troponin I < 0.012 (0.01-0.034) ng/mL NT-Pro-B Natriuret Pep 1740 H (<450) pg/mL Total Protein 7.0 (6.3-8.2) g/dL Albumin 3.8 (3.5-5.0) g/dL Globulin 3.2 (1.7-4.1) g/dL Albumin/Globulin Ratio 1.2 (1.0-2.8) Lipase 43 (23-300) U/L MDM Narrative Medical decision making narrative: CC: Dyspnea Complicating co-morbidities: History of paroxysmal atrial fibrillation, hyperlipidemia Data collected from: patient Medical records reviewed: ER records only are available at this time. Differential considered: Unstable angina, acute coronary syndrome, infectious etiology, congestive heart failure, recurrent atrial fibrillation Exam documented above, pertinent findings include: Exam is benign, lungs are clear Lab Test results independently reviewed as above. Pertinent findings: CBC is unremarkable Chemistries are reassuring is creatinine appropriate at 0.66 BNP is minimally elevated at 1740 Troponin is undetectable Independently reviewed EKG: EKG shows sinus rhythm frequent PVCs no acute ischemia Imaging studies independently reviewed: Patchy basilar infiltrates, mild cardiomegaly. Similar with slight progression in infiltrate development compared to October 23, 2024 chest x-ray Treatments: IV Lasix Discussion: 84-year-old woman with a history of paroxysmal atrial fibrillation anticoagulated comes in with history of chest tightness. Troponin is unremarkable, EKG shows frequent PVCs but no atrial fibrillation, BNP slightly elevated and chest x-ray suggests slight progression of volume overload. She is given Lasix in the emergency department. At this point there was no indication of infectious disease, virus. Findings reviewed with the patient, she understands recommendations and concerns. She has a follow up appointment with her primary care physician in approximately a week which will be good timing as she completes her Lasix. She does not carry diagnosis of congestive heart failure, has not had a prior echocardiogram and on further questioning she notes she has actually been having intermittent problems with lower extremity edema. Currently no chest pain, she is feeling better, no evidence of acute coronary syndrome no reason for hospitalization and she will be discharged Discharge Plan Departure Patient Disposition: Home Clinical Impression: Acute dyspnea, Volume overload Instructions: DI for Heart Failure Activity Restrictions/Additional Instructions: Thank you for coming in today Your blood work is actually reassuring. There was no sign of a heart attack or heart attack like syndrome. You are not anemic, I am seeing no significant electrolyte abnormalities and liver studies are good Your chest x-ray suggests a slight bit of fluid accumulating in your lungs. It is a bit worse than it was about a month ago. I suspect this is the reason for the tightness in your shortness of breath In the emergency department you are given IV Lasix, I am giving you a prescription for further Lasix with potassium to take for the next 5 days. Please start this oral Lasix tomorrow You do need to follow up with Dr. Price, he may want to recheck blood pressure, we will certainly want to see how you respond to the Lasix and may suggest an outpatient echocardiogram for further evaluation If you find that you are getting worse or develop any new symptoms, please feel free to return to the emergency department for further evaluation. Prescriptions: New furosemide 20 mg tablet 20 mg PO DAILY Qty: 7 0RF potassium chloride 8 mEq capsule, extended release 8 meq PO DAILY Qty: 7 0RF No Action metoprolol succinate 50 mg tablet extended release 24 hr PO Patient Comments: [NO ORIGINAL SIG] simvastatin 10 mg tablet PO cyclosporine [Restasis] 1 EACH dropperette 1 drp OPHTH Q DAY Qty: 0 omeprazole 40 mg capsule,delayed release(DR/EC) 40 mg PO DAILY Eliquis 5 mg tablet 5 mg PO BID Qty: 60 0RF Referrals: Mitch Price MD [Primary Care Provider, Family Practice] Stand Alone Forms: Patient Portal/API
[2024-11-20 08:14] LABS: PTT Partial Thromboplastin Tim 36 SECONDS (25.1-36.5)
[2024-11-20 08:17] LABS: Alanine Aminotransferase 23 IU/L (<35); Albumin 3.8 g/dL (3.5-5.0); Albumin Globulin Ratio 1.2 (1.0-2.8); Alkaline Phosphatase 65 U/L (38-126); Aspartate Aminotransferase 33 IU/L (14-36); BUN Creatinine Ratio 21.2 (6-22); Bilirubin Total 0.9 mg/dL (0.2-1.3); Blood Urea Nitrogen 14 mg/dL (7-17); Calcium 8.8 mg/dL (8.4-10.2); Carbon Dioxide 21 mmol/L (22-32); Chloride 108 mmol/L (98-107); Creatine Kinase 35 U/L (30-135); Estimated Glomerular Filt Rate > 60 mL/min (>60); Globulin 3.2 g/dL (1.7-4.1); Glucose 193 mg/dL (70-99); HEMOLYSIS 47 (0-50); Lipase 43 U/L (23-300); Magnesium 1.9 mg/dL (1.6-2.3); Potassium 3.8 mmol/L (3.4-5.1); Sodium 138 mmol/L (137-145)
[2024-11-20 08:29] LABS: NT-proBNP (BNP-Adult 18+) 1740 pg/mL (<450); Troponin I < 0.012 ng/mL (0.01-0.034)
[2024-11-20 09:42] VITALS: BP 141/68
[2024-11-20 09:58] VITALS: PULSE 72; O2SAT 97
[2024-11-20 10:00] VITALS: BP 152/71; PULSE 74; RESP 17; O2SAT 96
[2024-11-20] MEDS: FUROSEMIDE 40 MG/4 ML VIAL IV (12:12)
[2024-11-20 12:27] VITALS: BP 167/72; PULSE 75; RESP 15; O2SAT 95
== END 2024-11-20 12:29 | disposition home or self-care (01) ==
PROVIDERS: Emergency Provider Emergency Medicine; PCP Family Medicine
DX: R06.00 Dyspnea, unspecified (principal); E87.70 Fluid overload, unspecified; R07.89 Other chest pain; I48.0 Paroxysmal atrial fibrillation; Z79.01 Long term (current) use of anticoagulants
CPT/HCPCS: 36415; 71045; 80053; 82550; 83690; 83735; 83880; 84484; 85025; 85610; 85730; 93005; 93010; 96374; 99284; J1938

== ENCOUNTER → 2025-03-21 09:33 | Outpatient (CLI) | payer MEDICARE, OTHER, SELFPAY ==
--- NOTE | 2025-03-21 22:12 | DI.NM.S_ITS ---
DATE OF SERVICE: 03/21/2025 PROCEDURE: Exercise perfusion study. INDICATIONS: Shortness of breath, paroxysmal AFib, hypertension. RADIOPHARMACEUTICAL: 24.5 millicurie technetium-99m Myoview IV was injected at stress and 12.6 millicurie technetium-99m Myoview IV was injected at rest. CARDIAC STRESS: The patient underwent exercise perfusion study under the supervision of an attending staff. The patient walked on Paul protocol for 4 minutes and 33 seconds, achieved maximum heart rate of 173, which was 125% of target heart rate. Resting blood pressure 115/80 and peak blood pressure 160/100. Baseline rhythm sinus with intermittent PVCs including run of ventricular trigeminy. During stress, PVC got suppressed. At peak exercise, the patient has up to [address] depression in inferior leads and V4 to V6, which got resolved within 23 seconds in recovery. No chest pain. Had shortness of breath with exercise. The patient achieved 7 METS of workload. RAW DATA: Breast shadow seen. GATED STUDY: Stress LV ejection fraction 68% without any obvious wall motion abnormalities. Resting end-diastolic volume 59 mL. TID ratio 0.96, which is within normal limits. MYOCARDIAL PERFUSION SCAN: Stress supine, resting supine and stress prone images were compared to each other. There was normal myocardial perfusion. CONCLUSION: This is a normal myocardial perfusion study. The patient walked on Paul protocol for 4 minutes and 33 seconds. 7 METs of workload. No chest pain. Had shortness of breath. Mildly positive exercise EKG. However, perfusion scan showed normal myocardial perfusion. Preserved LV function without any obvious wall motion abnormalities. The patient had exercise perfusion study in April 2023. At that time, also had normal myocardial perfusion. At that time, the patient was able to walk for 5 minutes. No obvious ischemia. Overall, low-risk myocardial perfusion scan. Deborah Sands - SENA/phillip/MIRANDA doc#: [id number]/job#: [id number] dd: 03/21/2025 16:58:00 dt: 03/21/2025 22:04:00 DICTATING MD/COPIES TO: Sarah Cruz MD COPIES MNE: TORSTEN;
== END ==
PROVIDERS: PCP Family Medicine; Referring Provider Internal Medicine Cardiovascular Disease; Visit Provider Internal Medicine Cardiovascular Disease
DX: I48.0 Paroxysmal atrial fibrillation (principal); R06.02 Shortness of breath; I10 Essential (primary) hypertension; R94.31 Abnormal electrocardiogram [ECG] [EKG]
CPT/HCPCS: 78452; 93017; A9502